=== PATIENT | male | born 1940 | race Caucasian/White ===

== ENCOUNTER 2020-06-05 13:41 | Outpatient (RCR) | payer MEDICARE, SELFPAY | END 2020-06-05 23:59 | LOC: IMMUN 13:41 | PROVIDERS: PCP Family Medicine; Visit Provider Family Medicine | DX: Z23 Encounter for immunization (principal) | CPT/HCPCS: 0011A ==

== ENCOUNTER → 2022-01-05 | Outpatient (CLI) | payer MEDICARE, SELFPAY ==
--- NOTE | 2022-01-05 09:00 | PET_ITS ---
EXAMINATION: FDG PET-CT INDICATIONS: An 81-year-old male with history of esophageal carcinoma presenting for apparent initial staging examination. COMPARISON EXAMINATION: None available INDEX LESION SIZE SUV INTERPRETATION Distal esophagus 47.9-mm 8.1 Fulfills quantitative criteria for viable neoplasm Gastric cardia, proximal gastric body 65.5-mm 11.3 Fulfills quantitative criteria for viable neoplasm Perigastric and left periaortic lymph nodes 10.2-mm (largest) 4.4 (max) Fulfills quantitative criteria for viable neoplasm Left lumbar paravertebral musculature 13.3-mm (largest) 9.0 (max) Fulfills quantitative criteria for viable neoplasm Bilateral hemithorax pulmonary parenchyma 1.5 (max) Quantitative criteria for viable neoplasm are not fulfilled TECHNIQUE: Following the intravenous administration of 13.59 mCi of F-18 deoxyglucose via the left antecubital fossa, multiplanar image acquisitions of the neck, chest, abdomen and pelvis to level of mid thigh, obtained at one hour post radiopharmaceutical administration contemporaneously interpreted with the current CT of the neck, chest, abdomen and pelvis, to level of mid thigh, dated 01/05/22 via coregistration reveals: BLOOD GLUCOSE LEVEL:?? 134 mg/dl?HEIGHT:?69 inches?WEIGHT: 168 lbs. FINDINGS: Head/Neck: There is no evidence of abnormal increased glucose metabolism in the pharyngeal mucosal space, parapharyngeal space, bilateral-lateral and anterior neck, hypopharynx and distribution of the laryngeal structures. The visualized portion of the cerebral cortical-subcortical structures demonstrate symmetric and preserved glucose metabolism. CHEST: There is increased FDG concentration identified in the distribution of the distal esophagus, gastroesophageal junction. The calculated maximal standard uptake value is 8.1. The maximal axial diameter of the metabolic, morphologic abnormality is 47.9-mm. Prominent uptake is defined in the descending thoracic aorta likely representing activated leukocytes associated with atherosclerotic plaque formation. Parenchymal changes defined in the bilateral hemithorax demonstrate a calculated maximal standard uptake value of 1.5. Quantitative criteria for viable neoplasm are not fulfilled. Pertinent chest CT findings are as follows. There is atherosclerotic calcification defined in the thoracic aorta without evidence of dilatation-aneurysm formation. Coronary arterial calcification is observed. Calcified and non-calcified mediastinal and bilateral axillary soft tissue is ametabolic. The calcified parenchymal density defined in the right upper anteromedial lung zone is ametabolic. Abdomen/Pelvis: An increase in radiopharmaceutical concentration is identified in the left upper abdomen in the region of the gastric cardia, proximal gastric body. The calculated maximal standard uptake value is 11.3. The maximal axial diameter of the metabolic, morphologic abnormality is 5.5 mm. Facilitated FDG uptake is manifest in the left mid abdomen in a periaortic lymph node in the left lateral periaortic chain and upper abdomen to the right of the midline, perigastric in location adjacent to the lesser curvature. The calculated maximal standard uptake value is 4.4. The maximal axial diameter of the metabolic, morphologic abnormality is 10.2-mm. Normal physiologic distribution of the radiopharmaceutical is apparent in the hepatic and splenic parenchyma, both renal units, bladder and visualized intestinal tract. Pertinent abdomen and pelvis CT findings are as follows. There is atherosclerotic calcification defined in the abdominal aorta without evidence of dilatation-aneurysm formation. Abdominal and pelvic arterial calcification is encountered. Calcification is defined in the bilateral seminal vesicles, the left base of the prostate gland involving the peripheral zone. Bilateral fat containing inguinal hernias are defined. Right and left inguinal soft tissue densities are non-glucose avid. Abdominal mesenteric and additional retroperitoneal soft tissue densities are non-glucose avid. Cyst formation is defined in the right kidney. Calcification is noted in the pancreatic body. Skeletal: Degenerative changes are noted in the cervical, thoracic and lumbar spine without evidence of increased radiopharmaceutical concentration. There are no well-defined sclerotic-lytic changes manifest on review of the appendicular-axial skeletal structures. A focal increase in FDG uptake is noted in the left paravertebral musculature of the lumbar spine at the level of the fourth lumbar vertebra. The calculated maximal standard uptake value is 9.0, with a maximal axial diameter of 13.3-mm. PET/PET/CT Tumor Base -Thigh Init IMPRESSION: 1. ABNORMAL EXAMINATION INDICATIVE OF MALIGNANT VIABLE NEOPLASM. 2. Enhanced radiopharmaceutical concentration defined in the distal esophagus fulfills quantitative criteria for viable neoplasm. 3. The increase in glucose metabolism noted in the gastric cardia and proximal gastric body fulfills quantitative criteria for malignant transformation. 4. Lymph nodes identified in the left perigastric region adjacent to the inferior curvature of the proximal gastric body and left lateral periaortic lymph nodes fulfill quantitative criteria for viable neoplasm. 5. The paravertebral increase in uptake noted at the level of the fourth lumbar vertebra fulfills quantitative criteria for viable neoplasm. Correlation with magnetic resonance imaging may be of benefit. 6. Enhanced tracer uptake defined in the bilateral lung washburn does not fulfill quantitative criteria for viable neoplasm. Electronic Signature Michael Carter D.O. Accurate Quantification of SUVs for this report are calculated using the exclusive [employer]. ([place]. Patent No. [id number]). Standardization and correction of the FDG SUV metric via [employer] technology allow for vendor non-specific objective quantitative examination comparison and optimization of the sensitivity and specificity of the FDG PET-CT examination. Electronically Signed: Michael Carter, at 23:17 EDT ,
== END | disposition home or self-care (01) ==
PROVIDERS: PCP Family Medicine; Referring Provider Internal Medicine Hematology & Oncology; Visit Provider Internal Medicine Hematology & Oncology
DX: C49.9 Malignant neoplasm of connective and soft tissue, unspecified (principal); C15.5 Malignant neoplasm of lower third of esophagus
CPT/HCPCS: 78815; A9552

== ENCOUNTER 2022-02-05 11:02 | Emergency (ER) | payer MEDICARE, SELFPAY ==
[2022-02-05 11:03] VITALS: BP 115/51; PULSE 95; RESP 18; TEMP 36.2; O2SAT 89; BMI 23.6
--- NOTE | 2022-02-05 11:53 | EX.ED.DYSGE1 ---
HPI History of Present Illness Chief Complaint: General Illness Narrative Narrative: Patient presents with his family because of PICC line problem. They state that he has a PICC line placed in his right arm/upper arm that is replaced every week. He has history of esophageal cancer, and has chronic anemia. He usually gets weekly iron infusions. His PICC was last changed 3 or 4 days ago, where they were able to draw blood yesterday from one of the ports. states that she went to flush the other port which she believed was the white port, and met resistance. He is supposed to receive a blood transfusion on Monday, and he states he presents because he wants to make sure that his PICC is operable. Patient states that is the sole reason that he is here is to make sure that the PICC is functional. PFSH PFSH Home Medications Pioglitazone Hcl/Metformin Hcl [Actoplus Met 15 Mg-500 Mg Tab] 1 tab PO BID 11/08/16 [History Last Taken Unknown] aspirin 81 mg tablet,delayed release 81 mg PO QHS 11/08/16 [History Last Taken 11/14/16 09:00] cholecalciferol (vitamin D3) 50 mcg (2,000 unit) capsule (Vitamin D3) 2,000 unit PO DAILY 11/08/16 [History Last Taken Unknown] fluticasone propionate 50 mcg/actuation nasal spray,suspension 1 spray QHS 11/08/16 [History Last Taken Unknown] ketotifen fumarate 0.025 % (0.035 %) eye drops (Zaditor) 1 drp BID 11/08/16 [History Last Taken Unknown] losartan 25 mg tablet 25 mg PO DAILY 11/08/16 [History Last Taken Unknown] metformin 500 mg tablet 500 mg PO DAILY 11/08/16 [History Last Taken Unknown] multivitamin (Multiple Vitamins tablet) 1 ea PO DAILY 11/08/16 [History Last Taken Unknown] simvastatin 40 mg tablet 40 mg PO DINNER 11/08/16 [History Last Taken Unknown] sotalol 80 mg tablet (Betapace AF) 40 mg PO BID 11/08/16 [History Last Taken 11/14/16 09:00] Allergy/AdvReac Type Severity Reaction Status Date / Time albuterol Allergy Other Verified 02/05/22 11:06 amoxicillin Allergy Other Verified 02/05/22 11:06 levofloxacin [From Levaquin] Allergy Other Verified 02/05/22 11:06 moxifloxacin [From Avelox] Allergy Other Verified 02/05/22 11:06 sulfamethoxazole Allergy Rash Verified 02/05/22 11:06 [From Bactrim] trimethoprim [From Bactrim] Allergy Rash Verified 02/05/22 11:06 Social History Smoking Status: Former smoker ROS ROS ED ROS Narrative Constitutional: No fever, no chills. Generalized weakness HEENT: No sore throat. No neck pain. No loss of vision. No rhinorrhea. Pain from esophageal carcinoma. Cardiovascular: No chest pain. No palpitations. No pedal edema. Respiratory: No cough, no shortness of breath. Abdominal: No abdominal pain. No nausea. No vomiting. Genitourinary: No dysuria. No hematuria. Musculoskeletal: No myalgias. No arthralgias. PICC line malfunction right upper arm. Neurologic: No headaches. No dizziness. No lightheadedness. Skin: No rash. No change in color. Psychiatric: No depression. No anxiety. EXAM Physical Exam Narrative Exam Narrative: Afebrile. Vital signs noted. HEENT: Normocephalic. Atraumatic. PERRL, EOMI. Neck soft and supple. No point tenderness or step off. Mild cachexia. Cardiovascular: Regular rate and rhythm. No murmurs, rubs, or gallops appreciated. Respiratory: No tachypnea. Lungs clear to auscultation bilaterally. Gastrointestinal: Abdomen soft, nontender, with normoactive bowel sounds. No rebound or guarding. Neurological: Awake. Alert. Nonfocal, nonlateralizing. Skin: No rash. Normal color. No pallor. Musculoskeletal: No pedal edema. Full range of motion extremities. PICC line right upper arm, no erythema. Const Vital Signs: 02/05/22 11:03 02/05/22 12:02 Temperature 97.1 F L Temperature Source Temporal Pulse Rate 95 Respiratory Rate 18 Respiratory Effort Normal Non-Labored Respiratory Pattern Normal Blood Pressure 115/51 L Blood Pressure Mean 72 Pulse Ox 89 Oxygen Delivery Method Room Air MDM MDM MDM Narrative Medical decision making narrative: RN will attempt drawback and flushing of both purple and white ports. One of the RNs was able to drawback and flush both ports. This will be rechecked prior to his discharge. At this point in time, as his PICC line is now operational, I feel he can be discharged safely home with follow-up and receive his blood transfusion on Monday. Disposition is discharged home in stable condition. Return instructions were reviewed. Discharge Plan Triage Chief Complaint: General Illness ED Provider: Ricardo Menchaca Dx/Rx/DC Orders Clinical Impression: PIC line (peripherally inserted central catheter) flush, Occluded PICC line, History of esophageal cancer Instructions: ED PICC Line Care Prescriptions: No Action multivitamin [Multiple Vitamins] 1 EACH tablet 1 ea PO DAILY metformin 500 MG tablet 500 mg PO DAILY Label Comments: DIABETES ketotifen fumarate [Zaditor] 5 ML Drops 1 drp Each Eye BID Label Comments: SINUS sotalol [Betapace AF] 80 MG tablet 40 mg PO BID Label Comments: HEART aspirin 81 MG tablet 81 mg PO QHS Label Comments: HEART HEALTH simvastatin 40 MG tablet 40 mg PO DINNER Label Comments: CHOLESTEROL losartan 25 MG tablet 25 mg PO DAILY Label Comments: BP fluticasone propionate 1 SPRAY Nasal.Sry 1 spray NASAL QHS cholecalciferol (vitamin D3) [Vitamin D3] 2,000 UNIT capsule 2,000 unit PO DAILY Label Comments: SUPPLEMENT Pioglitazone Hcl/Metformin Hcl [Actoplus Met 15 Mg-500 Mg Tab] 1 TAB tablet 1 tab PO BID Label Comments: DIABETES Primary Care Provider: Eran Moeller Referrals: NOT,DEFINED [Non-Staff] - Activity Restrictions/Additional Instructions: Follow-up with the infusion center on Monday as planned. Disposition Disposition: Home, Self Care
--- NOTE | 2022-02-05 12:57 | ED.RN ---
FLUSHED PICC WITH MORE SALINE TO MAKE SURE STILL WORKING. WORKING INTENDED.
== END 2022-02-05 12:58 | disposition home or self-care (01) ==
PROVIDERS: Emergency Provider Emergency Medicine; Visit Provider Emergency Medicine
DX: T82.594A Other mechanical complication of infusion catheter, initial encounter (principal); X58.XXXA Exposure to other specified factors, initial encounter; D64.9 Anemia, unspecified; Z79.82 Long term (current) use of aspirin; Z79.899 Other long term (current) drug therapy; Z85.01 Personal history of malignant neoplasm of esophagus; Z87.891 Personal history of nicotine dependence
CPT/HCPCS: 99282; A4216

== ENCOUNTER → 2022-02-07 | Outpatient (CLI) | payer MEDICARE, SELFPAY ==
[2022-02-07] VITALS (7 sets, daily range): BP systolic 90–104; BP diastolic 49–58; PULSE 79–113; RESP 16–20; TEMP 35.8–36.2; O2SAT 90–93; BMI 23.6
[2022-02-07] MEDS: 0.9% NaCl Peripheral Flush Adult/Peds IV ×3 (08:30→12:34)
== END | disposition home or self-care (01) ==
PROVIDERS: Visit Provider Internal Medicine Hematology & Oncology
DX: D50.0 Iron deficiency anemia secondary to blood loss (chronic) (principal)
CPT/HCPCS: 36430; 86850; 86900; 86901; J7040; P9016; A4216

== ENCOUNTER 2022-02-12 01:05 | Inpatient (IN) | payer MEDICARE, SELFPAY ==
[2022-02-12] VITALS (13 sets, daily range): BP systolic 100–125; BP diastolic 55–74; PULSE 87–110; RESP 16–36; TEMP 36.4–37; O2SAT 84–99; BMI 23.1; BMI 22.2
--- NOTE | 2022-02-12 01:25 | ED.VIS.DYS ---
HPI History of Present Illness Chief Complaint: Shortness of Breath Narrative Narrative: 82-year-old male with history of esophageal cancer who is undergone chemotherapy 10-[address] Cook. He last followed up with Dr. Billings and he is being treated currently for aspiration pneumonia which she has had several times. He is on Augmentin. He states he does not have a fever, chills. He feels generally weak but there is no new components to it. He has been having difficulty eating for months because of the esophageal cancer. He is supposed start chemotherapy next week. He saw Dr. Brambila on the because he supposed to be putting in a port for his chemotherapy. At that point Dr. Brambila stated that his lungs sounded clear and his heart sounded normal. Patient states that he has felt short of breath since yesterday afternoon. He denies chest pain. He denies fever. No nausea or vomiting. He does not usually wear oxygen. No history of PE or DVT. [facility] Medical History Asthma Chronic anemia Diabetes mellitus, type 2 Esophageal carcinoma HLD (hyperlipidemia) HTN (hypertension) Iron deficiency anemia PAF (paroxysmal atrial fibrillation) Home Medications Pioglitazone Hcl/Metformin Hcl [Actoplus Met 15 Mg-500 Mg Tab] 1 tab PO BID 11/08/16 [History Last Taken Unknown] aspirin 81 mg tablet,delayed release 81 mg PO QHS 11/08/16 [History Last Taken 11/14/16 09:00] cholecalciferol (vitamin D3) 50 mcg (2,000 unit) capsule (Vitamin D3) 2,000 unit PO DAILY 11/08/16 [History Last Taken Unknown] ketotifen fumarate 0.025 % (0.035 %) eye drops (Zaditor) 1 drp BID 11/08/16 [History Last Taken Unknown] losartan 25 mg tablet 25 mg PO DAILY 11/08/16 [History Last Taken Unknown] metformin 500 mg tablet 500 mg PO DAILY 11/08/16 [History Last Taken Unknown] simvastatin 40 mg tablet 40 mg PO DINNER 11/08/16 [History Last Taken Unknown] sotalol 80 mg tablet (Betapace AF) 40 mg PO BID 11/08/16 [History Last Taken 11/14/16 09:00] amoxicillin 875 mg-potassium clavulanate 125 mg tablet 1 tab PO BID 02/07/22 [History Last Taken Unknown] Allergy/AdvReac Type Severity Reaction Status Date / Time albuterol Allergy Other Verified 02/12/22 01:14 amoxicillin Allergy Other Verified 02/12/22 01:14 levofloxacin [From Levaquin] Allergy Other Verified 02/12/22 01:14 moxifloxacin [From Avelox] Allergy Other Verified 02/12/22 01:14 sulfamethoxazole Allergy Rash Verified 02/12/22 01:14 [From Bactrim] trimethoprim [From Bactrim] Allergy Rash Verified 02/12/22 01:14 Family History Father Hypertension Diabetes Heart disease CAD (coronary artery disease) Sister Hypertension Diabetes Mother Hypertension Surgical History (Updated 02/12/22 @ 03:[address] Kelly Phillips MD) H/O sinus surgery History of esophageal surgery Status post myringotomy with tube placement of both ears Social History household members: spouse Smoking Status: Former smoker alcohol intake: current alcohol intake frequency: a few times a month substance use type: does not use ROS ROS ED Constitutional Constitutional ED: Denies chills or fever(s) Eyes Eyes: Denies change in vision ENT ENT ED: Denies rhinorrhea Cardiovascular Cardiovascular: Denies chest pain or palpitations Respiratory/Chest Respiratory/Chest: Reports cough and dyspnea Gastrointestinal Gastrointestinal: Denies abdominal pain or constipation Genitourinary Genitourinary ED: Denies dysuria or hematuria Musculoskeletal Musculoskeletal: Denies arthralgias, back pain or myalgias Integumentary Denies abscess Neurologic Neurologic: Denies headache(s) EXAM Physical Exam Const Vital Signs: 02/12/22 01:06 02/12/22 01:09 02/12/22 01:09 Temperature 97.8 F 97.8 F Temperature Source Temporal Temporal Pulse Rate 110 H 110 H Respiratory Rate 21 H 21 H Respiratory Effort Short of Breath Respiratory Depth Normal Respiratory Pattern Normal Blood Pressure 119/73 119/73 Blood Pressure Mean 88 88 Pulse Ox 88 88 Oxygen Delivery Method Room Air Room Air Room Air Oxygen Flow Rate (L/min) 02/12/22 01:14 02/12/22 01:38 02/12/22 03:02 Temperature 97.6 F L Temperature Source Temporal Pulse Rate 108 H 95 Respiratory Rate 36 H 24 H Respiratory Effort Respiratory Depth Respiratory Pattern Blood Pressure 113/65 124/72 H Blood Pressure Mean 81 89 Pulse Ox 94 93 99 Oxygen Delivery Method Nasal Cannula Nasal Cannula Nasal Cannula Oxygen Flow Rate (L/min) 3 3 3 MDM MDM MDM Narrative Medical decision making narrative: 82-year-old male with history of esophageal cancer currently status postradiation therapy and waning chemotherapy after he gets his port placed by Dr. Brambila presenting with hypoxia as he is 88% on room air. He has been short of breath since yesterday. No fever, chills. He does admit to a cough and shortness of breath. He feels better with 3 L nasal cannula. His O2 sats have come up to 94%. Given his tachycardia and tachypnea as well as hypoxia septic work-up was pursued. Patient had blood work done on 02/09/2022. His CBC at that time showed a white blood cell count of 11.89 and today it is 8.1. His hemoglobin was 10.0 and today it is 10.6. His platelets were 387 and today they are 332. Sodium today 133 and it was 130. Creatinine 0.56 and this was 0.47. GFR today is 150. LFTs are unremarkable. Lactic acid today 1.2. Urinalysis is negative. Coagulation studies are normal. Chest x-ray my interpretation shows some left lower lobe infiltrate. The radiologist interpreted this is agrees. Because of his history of cancer and hypoxia I did obtain a CTA of the chest which is negative for PE or dissection but does show bilateral lower lobe infiltrates as well as right middle lobe and lingular infiltrates. Since patient is requiring 3 L of oxygen via nasal cannula he will need to be admitted. I spoke with the hospitalist who wanted to start Rocephin and Flagyl. These were started in the ED. All results were discussed with the patient and his . Impression: 1. Bilateral pneumonia 2. Hypoxic respiratory failure 3. Generalized weakness 4. History of esophageal cancer Lab Data Attestation: I reviewed the patient's lab results. Labs: Laboratory Results - last 24 hr 02/12/22 02/12/22 02/12/22 01:18 01:18 01:18 WBC 8.1 RBC 4.09 L Hgb 10.6 L Hct 34.4 L MCV 84.1 MCH 25.9 L MCHC 30.8 L RDW Std Deviation 66.4 H RDW Coeff of Rey 21.8 H Plt Count 332 MPV 8.7 Immature Gran % (Auto) 0.600 Neut % (Auto) 77.6 H Lymph % (Auto) 5.2 L [place] % (Auto) 15.5 H Eos % (Auto) 0.9 Baso % (Auto) 0.2 Absolute Neuts (auto) 6.3 Absolute Lymphs (auto) 0.42 L Nucleated RBC % 0 Differential Comment SCANNED Platelet Estimate ADEQUATE Anisocytosis 1+ Microcytosis 1+ PT 12.7 INR 1.0 APTT 27.4 Sodium 133 L Potassium 4.5 Chloride 97 L Carbon Dioxide 29.0 Anion Gap 7 BUN 13 Creatinine 0.56 L Estim Creat Clear Calc 56.95 Est GFR (MDRD) Af Amer 181 Est GFR (MDRD) Non-Af 150 BUN/Creatinine Ratio 23.4 H Glucose 201 H Lactic Acid Calcium 8.9 Total Bilirubin 0.30 AST 16 ALT 10 L Alkaline Phosphatase 80 Troponin I High Sens 8 Total Protein 5.7 L Albumin 2.3 L Globulin 3.4 Albumin/Globulin Ratio 0.7 L Urine Color Urine Clarity Urine pH Ur Specific [place] Urine Protein Urine Glucose (UA) Urine Ketones Urine Occult Blood Urine Nitrite Urine Bilirubin Urine Urobilinogen Ur Leukocyte Esterase Urine RBC Urine WBC Ur Squamous Epith Cells Urine Bacteria Urine Mucus 02/12/22 02/12/22 01:18 01:43 WBC RBC Hgb Hct MCV MCH MCHC RDW Std Deviation RDW Coeff of [place] Plt Count MPV Immature Gran % (Auto) Neut % (Auto) Lymph % (Auto) [place] % (Auto) Eos % (Auto) Baso % (Auto) Absolute Neuts (auto) Absolute Lymphs (auto) Nucleated RBC % Differential Comment Platelet Estimate Anisocytosis Microcytosis PT INR APTT Sodium Potassium Chloride Carbon Dioxide Anion Gap BUN Creatinine Estim Creat Clear Calc Est GFR (MDRD) Af Amer Est GFR (MDRD) Non-Af BUN/Creatinine Ratio Glucose Lactic Acid 1.2 Calcium Total Bilirubin AST ALT Alkaline Phosphatase Troponin I High Sens Total Protein Albumin Globulin Albumin/Globulin Ratio Urine Color Yellow Urine Clarity Clear Urine pH 6.5 Ur Specific [place] 1.015 Urine Protein 30 H Urine Glucose (UA) Normal Urine Ketones 5 H Urine Occult Blood Negative Urine Nitrite Negative Urine Bilirubin Negative Urine Urobilinogen Normal Ur Leukocyte Esterase 25 H Urine RBC 0 SEEN Urine WBC 0 SEEN Ur Squamous Epith Cells 0 SEEN Urine Bacteria 0 SEEN Urine Mucus 0 SEEN Radiography Diagnostic Testing: Clinical Impression(s) from Imaging Studies Chest X-Ray 02/12/22 01:50 IMPRESSION: Mild left basilar airspace disease. Findings may indicate atelectasis or pneumonia. Electronically Signed: Toño Lopez MD at 2:32 EDT , Chest CTA 02/12/22 02:30 IMPRESSION: 1. Patchy nodular airspace disease in the lower lobes, right middle lobe and lingula, as well as some fluid within the right lower lobe airways. Findings likely indicate pneumonia, possibly contributed to by aspiration. 2. No evidence of pulmonary embolism. 3. Large distal esophageal stent extending into the proximal stomach. Significant wall thickening of the esophagus surrounding the stent. This is consistent with the history of esophageal cancer. Electronically Signed: Toño Lopez MD at 2:59 EDT , Discharge Plan Triage Chief Complaint: Shortness of Breath ED Provider: Osiel Huggins Dx/Rx/DC Orders Prescriptions: No Action metformin 500 MG tablet 500 mg PO DAILY Label Comments: DIABETES ketotifen fumarate [Zaditor] 5 ML drops 1 drp Each Eye BID Label Comments: SINUS sotalol [Betapace AF] 80 MG tablet 40 mg PO BID Label Comments: HEART aspirin 81 MG tablet 81 mg PO QHS Label Comments: HEART HEALTH simvastatin 40 MG tablet 40 mg PO DINNER Label Comments: CHOLESTEROL losartan 25 MG tablet 25 mg PO DAILY Label Comments: BP cholecalciferol (vitamin D3) [Vitamin D3] 2,000 UNIT capsule 2,000 unit PO DAILY Label Comments: SUPPLEMENT Pioglitazone Hcl/Metformin Hcl [Actoplus Met 15 Mg-500 Mg Tab] 1 TAB tablet 1 tab PO BID Label Comments: DIABETES amoxicillin-pot clavulanate [Augmentin] 875-125 mg Tablet 1 tab PO BID Primary Care Provider: Eran Moeller Referrals: Eran Moeller DO [Primary Care Provider] -
--- NOTE | 2022-02-12 01:28 | EKG12_ITS ---
Test Reason : SHORTNESS OF BREATH Blood Pressure : / mmHG Vent. Rate : 091 BPM Atrial Rate : 091 BPM P-R Int : 152 ms QRS Dur : 070 ms QT Int : 406 ms P-R-T Axes : 050 -12 041 degrees QTc Int : 499 ms Sinus rhythm with PAC's and PVC's Prolonged QT Abnormal ECG Confirmed by RA GONSALVES, LUCIANA ([id number]), graphics editor MICAH VEGA ([id number]) on 02/14/2022 10:01:34 AM Referred By: STEF Confirmed By:LOWELL KNAPP MD
[2022-02-12 01:43] LABS: Absolute Lymphocyte Count 0.42 X10^3/uL (0.83-4.51); Absolute Neutrophil Count 6.3 X10^3/uL (2.0-7.7); Basophil# 0.02 X10^3/uL; Basophil% 0.2 % (0-1); Differential Indicated SCAN CRITERIA MET; Eosinophil# 0.07 X10^3/uL; Eosinophils% 0.9 % (0-5); Hematocrit 34.4 % (40-54); Hemoglobin 10.6 g/dL (13.0-16.5); Lymphocyte # 0.42 X10^3/ul (0.83-4.51); Lymphocyte % 5.2 % (19-41); Mean Corp Hgb Conc 30.8 g/dL (32-36); Mean Corpuscular Hgb 25.9 pg (27.0-32.0); Mean Corpuscular Volume 84.1 fL (80-94); Mean Platelet Vol. 8.7 fl (6.2-12.0); Monocyte# 1.25 X10^3/uL; Monocyte% 15.5 % (0-10); NRBC Flagged by Analyzer 0 % (0-5); Neutrophil # 6.26 X10^3/uL (2.7-7.7); Neutrophil % 77.6 % (47-70); POSITIVE COUNT YES; POSITIVE DIFFERENTIAL YES; POSITIVE MORPHOLOGY YES; Platelet Count 332 K/mm3 (150-450); RBC Distribution Width CV 21.8 % (11.6-14.6); RBC Distribution Width SD 66.4 fl (35.1-43.9); Red Blood Count 4.09 M/mm3 (4.6-6.2); White Blood Count 8.1 K/mm3 (4.4-11.0)
[2022-02-12 01:50] LABS: Prothrombin Time (Protime)PT. 12.7 SECONDS (11.7-14.9)
--- NOTE | 2022-02-12 01:50 | RAD_ITS ---
EXAM: XR CHEST, 1 VIEW CLINICAL INDICATION: cough TECHNIQUE: Frontal view of the chest. This report was created using [employer] report generation technology. COMPARISON: 02/06/2015 FINDINGS: LUNGS AND PLEURAL SPACES: Mild left basilar airspace disease. No pneumothorax. No effusion. HEART: Unremarkable. Cardiac silhouette not enlarged. MEDIASTINUM: Central airways and mediastinal contour are unremarkable. BONES/JOINTS: Unremarkable. SOFT TISSUES: Unremarkable. RAD/Chest 1 View (Portable) IMPRESSION: Mild left basilar airspace disease. Findings may indicate atelectasis or pneumonia. Electronically Signed: Toño Lopez MD at 2:32 EDT ,
[2022-02-12 01:51] LABS: Partial Thromboplast Time 27.4 Seconds (24.1-36.2)
[2022-02-12 01:56] LABS: Bacteria 0 SEEN /hpf (None Seen); Mucous, Urine 0 SEEN /hpf (<or=2+); Red Blood Cells-Urine 0 SEEN /hpf (0-5); Squamous Epithelial Cells - UA 0 SEEN /hpf (0-5); White Blood Cells 0 SEEN /hpf (0-5)
[2022-02-12 01:57] LABS: Color, Urine Yellow (Yellow); Glucose, Dipstick Normal (Normal); Ketone-Dipstick 5 mg/dl (Negative); Leukocyte Esterase-Dipstick 25 /ul (Negative); Nitrite-Dipstick Negative (Negative); Occult Blood-Urine Negative /ul (Negative); Protein-Dipstick 30 mg/dl (Negative); Specific Gravity, Urine 1.015 (1.002-1.030); Urine Bilirubin Dipstick Negative (Negative); Urine Clarity Clear (Clear); Urine Urobilinogen Normal (Normal); Urine pH 6.5 (5.0 - 8.0)
[2022-02-12 02:01] LABS: ALB/GLOB Ratio 0.7 RATIO (0.9-2.4); AST(SGOT) 16 U/L (15-37); Alanine Aminotransfer ALT/SGPT 10 U/L (16-61); Albumin, Serum 2.3 g/dL (3.2-5.0); Alkaline Phosphatase 80 U/L (45-117); Anion Gap 7 (5-15); BUN 13 mg/dL (7-18); BUN/Creat Ratio 23.4 RATIO (10-20); Calcium,Total 8.9 mg/dL (8.5-10.1); Chloride 97 mmol/L (98-107); Creatinine, Serum 0.56 mg/dL (0.70-1.30); EST Glomerular Filtration Rate 150 mL/min (>60); Est Glom Filt Rate - Afr Amer 181 mL/min (>60); Estimated Creatinine Clearance 56.95 ml/min; Globulin 3.4 g/dL (2.2-4.2); Glucose 201 mg/dL (74-106); Potassium 4.5 mmol/L (3.5-5.1); Protein, Total 5.7 g/dL (6.4-8.2); Sodium Level 133 mmol/L (136-145); Troponin-I HS 8 pg/mL (3.0-78.0)
[2022-02-12 02:02] LABS: Lactic Acid 1.2 mmol/L (0.4-1.9)
[2022-02-12 02:05] LABS: Anisocytosis 1+; Differential Comment SCANNED; Microcytosis 1+; Platelet Estimate ADEQUATE (ADEQ)
--- NOTE | 2022-02-12 02:30 | CT_ITS ---
EXAM: CT ANGIOGRAPHY CHEST WITHOUT AND WITH INTRAVENOUS CONTRAST CLINICAL INDICATION: Hypoxic respiratory failure TECHNIQUE: Helically acquired angiography images were obtained of the chest without and with intravenous contrast. This CT exam was performed using one or more of the following dose reduction techniques: automated exposure control, adjustment of the mA and/or kV according to patient size, and/or use of iterative reconstruction technique. This report was created using [employer] report generation technology. MIP reconstructed images were created and reviewed. CONTRAST: IV 100mL Isovue-370 COMPARISON: None. FINDINGS: PULMONARY ARTERIES: Unremarkable. Normal in caliber. No evidence of pulmonary embolism. AORTA: Unremarkable. Normal in caliber. No evidence of dissection. GREAT VESSELS OF AORTIC ARCH: Unremarkable. Normal in caliber. No evidence of dissection. LUNGS AND PLEURAL SPACES: Patchy nodular airspace disease in the lower lobes, right middle lobe and lingula, as well as some fluid within the right lower lobe airways. No mass. HEART: Coronary artery calcifications. Mild cardiomegaly. No pericardial effusion. No signs of right heart strain, ratio of right ventricle to left ventricle measures less than 1. MEDIASTINUM: Large distal esophageal stent extending into the proximal stomach. Significant wall thickening of the esophagus surrounding the stent. This is consistent with the history of esophageal cancer. No mediastinal or hilar adenopathy. No hiatal hernia. THYROID: Unremarkable. No thyroid lesions. BONES/JOINTS: Degenerative changes of the spine. No suspicious lytic or blastic abnormality. CT/CTA Chest W/WO Contrast IMPRESSION: 1. Patchy nodular airspace disease in the lower lobes, right middle lobe and lingula, as well as some fluid within the right lower lobe airways. Findings likely indicate pneumonia, possibly contributed to by aspiration. 2. No evidence of pulmonary embolism. 3. Large distal esophageal stent extending into the proximal stomach. Significant wall thickening of the esophagus surrounding the stent. This is consistent with the history of esophageal cancer. Electronically Signed: Toño Lopez MD at 2:59 EDT ,
--- NOTE | 2022-02-12 03:03 | HP.PCM.HOS_ITS ---
HPI - General General Date of Admission: 02/12/22 Date of Service: 02/12/22 Chief Complaint: Fatigue, malaise, cough, dyspnea, hypoxia, recent aspiration PNA treatment start. HPI Narrative The patient is an 82 y/o M w/ PMHx: PAF, HTN, HLD, Diabetes mellitus type II, PAF, Chronic anemia/Fe deficiency anemia with routine IV Fe supplementation, recent diagnosis of esophageal cancer with ongoing chemotherapy following w/ Dr. Cook with recent 02/10/[address] Brambila for port placement for planned upcoming new chemotherapy, recent diagnosis Aspiration PNA on antibiotics (augmentin per Dr. Billings/Dr. Cook starting 02/04/22) outpatient with worsening dyspnea, more pronounced since afternoon day prior to ED presentation prompting eventual ED evaluation. Patient does report that over the last couple days he has been sleeping in a recliner secondary to worsened dyspnea with attempt to lay in bed but this seemed to improve even on his recent oral abx therapy. He denies any associated fever or chills but notes significant wea kness. He has had difficulty eating for several months because of his esophageal cancer. Work-up in the ED included T97.8, heart rate 110, BP 119/73, respiratory rate 21, initially 88% on room air with improvement to 94% on 3 L nasal cannula, CBC w/ WBC 8.1, Hgb 10.6, MCV 84.1, Plts 332 with lymphopenia, coags unremarkable, CMP Na 133, Chl 97, BUN/Cr 13/0.56, glucose 201, lactic acid 1.2, troponin 8, Bld Cx x 2 pending per ED, rapid COVID antigen negative, UA not marked appearing, UCx pending per ED, CXR with mild left basilar airspace disease, CTPA with patchy nodular airspace disease in the lower lobes, right middle lobe and lingula as well as some fluid within the right lower lobe airway s indicative of pneumonia, contributed to by likely aspiration with no evidence of pulmonary embolism, large distal esophageal stent extending the proximal stomach with significant wall thickening of the esophagus surrounding the stent consistent with history of esophageal cancer. [facility] Medical History (Updated 02/12/22 @ 03:[address] Kelly Phillips MD) Asthma Chronic anemia Diabetes mellitus, type 2 Esophageal carcinoma HLD (hyperlipidemia) HTN (hypertension) Iron deficiency anemia PAF (paroxysmal atrial fibrillation) Home Medications Pioglitazone Hcl/Metformin Hcl [Actoplus Met 15 Mg-500 Mg Tab] 1 tab PO BID 11/08/16 [History Last Taken Unknown] aspirin 81 mg tablet,delayed release 81 mg PO QHS 11/08/16 [History Last Taken 11/14/16 09:00] cholecalciferol (vitamin D3) 50 mcg (2,000 unit) capsule (Vitamin D3) 2,000 unit PO DAILY 11/08/16 [History Last Taken Unknown] ketotifen fumarate 0.025 % (0.035 %) eye drops (Zaditor) 1 drp BID 11/08/16 [History Last Taken Unknown] losartan 25 mg tablet 25 mg PO DAILY 11/08/16 [History Last Taken Unknown] metformin 500 mg tablet 500 mg PO DAILY 11/08/16 [History Last Taken Unknown] simvastatin 40 mg tablet 40 mg PO DINNER 11/08/16 [History Last Taken Unknown] sotalol 80 mg tablet (Betapace AF) 40 mg PO BID 11/08/16 [History Last Taken 0 11/14/16 09:00] amoxicillin 875 mg-potassium clavulanate 125 mg tablet 1 tab PO BID 02/07/22 [History Last Taken Unknown] Allergy/AdvReac Type Severity Reaction Status Date / Time albuterol Allergy Other Verified 02/12/22 01:14 amoxicillin Allergy Other Verified 02/12/22 01:14 levofloxacin [From Levaquin] Allergy Other Verified 02/12/22 01:14 moxifloxacin [From Avelox] Allergy Other Verified 02/12/22 01:14 sulfamethoxazole Allergy Rash Verified 02/12/22 01:14 [From Bactrim] trimethoprim [From Bactrim] Allergy Rash Verified 02/12/22 01:14 Family History Father Hypertension Diabetes Heart disease CAD (coronary artery disease) Sister Hypertension Diabetes Mother Hypertension Surgical History (Updated 02/12/22 @ 03:[address] Kelly Phillips MD) H/O sinus surgery History of esophageal surgery Status post myringotomy with tube placement of both ears Social History household members: spouse Smoking Status: Former smoker alcohol intake: current alcohol intake frequency: a few times a month substance use type: does not use ROS ROS Narrative Admission Review of Systems: CONSTITUTIONAL: No weight loss, fever, chills, + weakness or fatigue. HEENT: Eyes: No visual loss, blurred vision, double vision or yellow sclerae. Ears, Nose, Throat: No hearing loss, sneezing, congestion, runny nose or sore throat. SKIN: No rash or itching, lesions, wounds. CARDIOVASCULAR: + Edema, orthopnea. No chest pain, chest pressure or chest dis comfort, palpitations, syncopal events. RESPIRATORY: + shortness of breath, cough with increased sputum, wheezing, No hemoptysis. GASTROINTESTINAL: No anorexia, nausea, vomiting or diarrhea, abdominal pain, melena, BRBPR. GENITOURINARY: No dysuria, frequency, urgency or retention. NEUROLOGICAL: No headache, dizziness, syncope, paralysis, ataxia, numbness or tingling in the extremities, focal weakness, change in bowel or bladder control, seizure. MUSCULOSKELETAL: + muscle, back pain, joint pain or stiffness. HEMATOLOGIC: + anemia, bleeding or bruising. LYMPHATICS: No enlarged nodes. No history of splenectomy. PSYCHIATRIC: No history of depression or anxiety. ENDOCRINOLOGIC: No reports of sweating, cold or heat intolerance. No polyuria or polydipsia. ALLERGIES: No history of asthma, hives, eczema or rhinitis. Vital Signs Vital Signs Vital Signs: 02/12/22 01:06 02/12/22 01:09 02/12/22 01:09 Temperature 97.8 F 97.8 F Temperature Source Temporal Temporal Pulse Rate 110 H 110 H Respiratory Rate 21 H 21 H Respiratory Effort Short of Breath Respiratory Depth Normal Respiratory Pattern Normal Blood Pressure 119/73 119/73 Blood Pressure Mean 88 88 Pulse Ox 88 88 Oxygen Delivery Method Room Air Room Air Room Air Oxygen Flow Rate (L/min) 02/12/22 01:14 02/12/22 01:38 Temperature Temperature Source Pulse Rate 108 H Respiratory Rate 36 H Respiratory Effort Respiratory Depth Respiratory Pattern Blood Pressure 113/65 Blood Pressure Mean 81 Pulse Ox 94 93 Oxygen Delivery Method Nasal Cannula Nasal Cannula Oxygen Flow Rate (L/min) 3 3 Weight Weight: 156 lb 11.979 oz Body Mass Index (BMI) 23.1 Physical Exam Narrative Physical Examination: General: Awake, alert, oriented x 3 and cooperative, seated upright in the ED bed, fatigued, ill appearing. Skin: Normal color, normal turgor, no icterus, no cyanosis except for various staged ecchymoses. HEENT: AT/NC, EOMI, PERRLA, mildly dry MM, no carotid bruits or JVD noted. Lungs: Notably diminished, > bases, poor air movement, poor effort, no rales, ronchi or wheezing. Heart: Mildly tachycardic with regular rhythm; no gallop, rub audible. Abdomen: Soft, NTTP, ND, distant normal BS, no HSM. Extremities: No cyanosis, no clubbing, pedal to distal smith 1+ edema. Neurological: Patient awake, alert, oriented as noted, cognitive function intact; pupils equally reactive to light and accommodation, cranial nerves II- XII grossly normal, moving all 4 extremities, no focal deficits, strength moderately to severely globally decreased secondary to acute presentation. Psychiatric: Affect appears fatigued, ill appearing, no acute evidence of depressive or anxiety feelings. Results Lab / Micro Data Result Diagrams: 02/12/22 01:18 02/12/22 01:18 Labs: Laboratory Results - last 24 hr 02/12/22:18: WBC 8.1, RBC 4.09 L, Hgb 10.6 L, Hct 34.4 L, MCV 84.1, MCH 25.9 L, MCHC 30.8 L, RDW Std Deviation 66.4 H, RDW Coeff of Rey 21.8 H, Plt Count 332, MPV 8.7, Immature Gran % (Auto) 0.600, Neut % (Auto) 77.6 H, Lymph % (Auto) 5.2 L, Summers % (Auto) 15.5 H, Eos % (Auto) 0.9, Baso % (Auto) 0.2, Absolute Neuts (auto) 6.3, Absolute Lymphs (auto) 0.42 L, Nucleated RBC % 0, Differential Comment SCANNED, Platelet Estimate ADEQUATE, Anisocytosis 1+, Microcytosis 1+ 02/12/22:18: PT 12.7, INR 1.0, APTT 27.4 02/12/22:18: Sodium 133 L, Potassium 4.5, Chloride 97 L, Carbon Dioxide 29.0, Anion Gap 7, BUN 13, Creatinine 0.56 L, Estim Creat Clear Calc 56.95, Est GFR (MDRD) Af Amer 181, Est GFR (MDRD) Non-Af 150, BUN/Creatinine Ratio 23.4 H, Glucose 201 H, Calcium 8.9, Total Bilirubin 0.30, AST 16, ALT 10 L, Alkaline Phosphatase 80, Troponin I High Sens 8, Total Protein 5.7 L, Albumin 2.3 L, Globulin 3.4, Albumin/Globulin Ratio 0.7 L 02/12/22 01:18: Lactic Acid 1.2 02/12/22 01:43: Urine Color Yellow, Urine Clarity Clear, Urine pH 6.5, Ur Specific [place] 1.015, Urine Protein 30 H, Urine Glucose (UA) Normal, Urine Ketones 5 H, Urine Occult Blood Negative, Urine Nitrite Negative, Urine Bilirubin Negative, Urine Urobilinogen Normal, Ur Leukocyte Esterase 25 H, Urine RBC 0 SEEN, Urine WBC 0 SEEN, Ur Squamous Epith Cells 0 SEEN, Urine Bacteria 0 SEEN, Urine Mucus 0 SEEN Micro: Microbiology 02/12/22 01:38 Nasal Secretion SARS-CoV-2 Antigen (Rapid) - Final Radiology Impression Chest X-Ray 02/12/22 01:50 IMPRESSION: Mild left basilar airspace disease. Findings may indicate atelectasis or pneumonia. Electronically Signed: Toño Lopez MD at 2:32 EDT , Chest CTA 02/12/22 02:30 IMPRESSION: 1. Patchy nodular airspace disease in the lower lobes, right middle lobe and lingula, as well as some fluid within the right lower lobe airways. Findings likely indicate pneumonia, possibly contributed to by aspiration. 2. No evidence of pulmonary embolism. 3. Large distal esophageal stent extending into the proximal stomach. Significant wall thickening of the esophagus surrounding the stent. This is consistent with the history of esophageal cancer. Electronically Signed: Toño Lopez MD at 2:59 EDT , Assessment & Plan Assessment/Plan (1) Aspiration pneumonia: PLAN: Plan The patient is an 82 y/o M w/ PMHx: PAF, HTN, HLD, Diabetes mellitus type II, PAF, Chronic anemia/Fe deficiency anemia with routine IV Fe supplementation, recent diagnosis of esophageal cancer with ongoing chemotherapy following w/ Dr. Cook with recent 02/10/[address] Brambila for port placement for planned upcoming new chemotherapy, recent diagnosis Aspiration PNA on antibiotics outpatient with worsening dyspnea, more pronounced since afternoon day prior to ED presentation prompting eventual ED evaluation. #1. Aspiration pneumonia, recently diagnosed, worsening despite outpatient a ntibiotic therapies with associated hypoxia: Will admit to medical surgical floor, maintain on oxygen with wean as tolerated to oxygen supplementation, given tachycardia upon presentation will place on ATC budesonide therapy, maintained on IV Rocephin and Flagyl given allergy history, HOB, IS parameters w/ pending sputum cultures and urine antigens to be cautious. Speech therapy consulted and will maintain n.p.o. status except sips water with medications pending their evaluation given concern for aspiration. PT/OT/case management consultation for discharge planning. PPI while NPO. #2. Esophageal cancer: Following with Dr. Cook, recent evaluation 02/10/[address] Brambila for port placement, history of prior chemotherapy but plan to upcoming transition to new agent once port is placed, magnesium and phosphorus levels requested. Speech therapy consulted, n.p.o. status except medications pending evaluation #3. Chronic anemia/iron deficiency anemia: 02/09/2022 CBC with WBC 11.89, hemoglobin 10, platelet 387 with left shift, CMP with sodium 130, potassium 4.6, chloride 95, BUN/creat 12/0.47, hepatic profile not marked appearing. Admission CBC with hemoglobin 10.6, as noted prior baseline 02/10/2020 to 10, will continue to trend. #4. Chronic asthma: As noted above will place on ATC budesonide therapy, encourage head of bed and I-S. #5. PAF: We will continue patient home regimen aspirin and sotalol. #6. Hypertension: Continue home regimen including sotalol, losartan, PRN hydralazine. #7. Hyperlipidemia: We will continue patient on statin therapy. #8. Diabetes mellitus type II: Hold oral home regimen, will maintain n.p.o. pending speech therapy evaluation, accu checks w/ ISS. #9. DVT prophylaxis: SCDs, Lovenox. #10. CODE status: Patient HCPOA and living will are not in place. Discussed CODE status at length including difference between FULL code, DNR-CCA and DNR-CC status. Following discussions about the differences in these status, requested Full Code status. Advanced Care Planning Face to Face Time: 16 minutes. Charges/Coding Visit Charges Inpatient E&M: 64177 Init Hosp L3 Procedures Hospitalists Procedures: 91041 Advncd Care Plan 30 Min
[2022-02-12] MEDS: Ceftriaxone 1 GM/50 ML BAG IV ×2 (03:35→22:23)
[2022-02-12 03:36] LABS: Magnesium 1.6 mg/dL (1.6-2.6); Phosphorus 2.2 mg/dL (2.5-4.9)
[2022-02-12] MEDS: 0.9% Normal Saline 1,000 ML 100 ML IV ×2 (04:41→16:33)
[2022-02-12] MEDS: metroNIDAZOLE 500 MG/100 ML BAG 100 MG IV ×3 (04:48→23:07)
[2022-02-12] MEDS: Insulin Lispro 100 UNIT/ML INSULN.PEN SC ×2 (06:30→17:22)
[2022-02-12 06:47] LABS: Absolute Lymphocyte Count 0.31 X10^3/uL (0.83-4.51); Absolute Neutrophil Count 6.2 X10^3/uL (2.0-7.7); Basophil# 0.01 X10^3/uL; Basophil% 0.1 % (0-1); Eosinophil# 0.05 X10^3/uL; Eosinophils% 0.6 % (0-5); Hematocrit 33.3 % (40-54); Hemoglobin 10.2 g/dL (13.0-16.5); Lymphocyte # 0.31 X10^3/ul (0.83-4.51); Mean Corp Hgb Conc 30.6 g/dL (32-36); Mean Corpuscular Hgb 26.2 pg (27.0-32.0); Mean Corpuscular Volume 85.4 fL (80-94); Mean Platelet Vol. 8.9 fl (6.2-12.0); Monocyte# 1.14 X10^3/uL; Monocyte% 14.7 % (0-10); NRBC Flagged by Analyzer 0 % (0-5); Neutrophil # 6.19 X10^3/uL (2.7-7.7); Neutrophil % 80.1 % (47-70); POSITIVE DIFFERENTIAL YES; POSITIVE MORPHOLOGY YES; Platelet Count 302 K/mm3 (150-450); RBC Distribution Width CV 21.7 % (11.6-14.6); RBC Distribution Width SD 67.4 fl (35.1-43.9); White Blood Count 7.7 K/mm3 (4.4-11.0)
[2022-02-12 06:54] LABS: Differential Indicated SCAN CRITERIA MET
[2022-02-12 06:55] LABS: Bedside Glucose 179 mg/dL (74-106)
[2022-02-12 06:55] LABS: Bedside Glucose 179 mg/dL (74-106)
[2022-02-12 07:17] LABS: ALB/GLOB Ratio 0.7 RATIO (0.9-2.4); AST(SGOT) 16 U/L (15-37); Alanine Aminotransfer ALT/SGPT 11 U/L (16-61); Albumin, Serum 2.1 g/dL (3.2-5.0); Alkaline Phosphatase 70 U/L (45-117); Anion Gap 6 (5-15); BUN 12 mg/dL (7-18); BUN/Creat Ratio 22.9 RATIO (10-20); Calcium,Total 8.6 mg/dL (8.5-10.1); Chloride 97 mmol/L (98-107); Creatinine, Serum 0.52 mg/dL (0.70-1.30); EST Glomerular Filtration Rate 161 mL/min (>60); Est Glom Filt Rate - Afr Amer 194 mL/min (>60); Globulin 3.1 g/dL (2.2-4.2); Glucose 190 mg/dL (74-106); Potassium 4.3 mmol/L (3.5-5.1); Protein, Total 5.2 g/dL (6.4-8.2); Sodium Level 134 mmol/L (136-145)
[2022-02-12 07:20] LABS: Anisocytosis 1+; Differential Comment SCANNED; Microcytosis 1+
[2022-02-12] MEDS: Budesonide Respules 0.5 MG/2 ML AMPUL.NEB. INHALATION ×2 (07:27→19:00)
[2022-02-12] MEDS: Losartan Potassium 25 MG Tablet PO (09:57)
[2022-02-12] MEDS: Sotalol Hydrochloride 80 MG Tablet 40 MG PO ×2 (09:58→21:50)
[2022-02-12] MEDS: Enoxaparin 40 MG/0.4 ML Syringe SC (10:00)
--- NOTE | 2022-02-12 10:30 | CASEMGMT ---
FABIAN LLOYD Face to Face with patient for initial transition planning/care coordination assessment. AFBIAN LLOYD introduced self and role at [facility]. Patient lying in bed, alert and oriented, at bedside. Patient willing to participate in assessment and is able to answer all questions appropriately. Care providers, pharmacy, and demographics verified. Patient wishes to discharge home, denies need for home health at this time. Patient states he has no further needs or concerns at this time. CM to follow for discharge planning needs that may arise. PCP: Sajan Specialists: Jose Antonio, oncologist; Jose director of design Preferred Pharmacy: [facility] Insurance: [employer] Prescription Benefit: yes Living Will/HPOA: none LNOK: Living Arrangements: Patient lives with in a single story home with 3 steps and railing to enter. Patient states he is independent at home. Transportation: self, DME/HHC: Patient states he has raised toilet, grab bars, and walker at home. No previous HHC or SNF. FABIAN LLOYD provided patient with list of DME agencies that are in-network with his insurance and geographical area. Patient states first choice for DME is [employer]. FABIAN LLOYD placed Green Sheet on chart should patient qualify for home oxygen. Disposition Plan: Patient to discharge home with family support and follow-up plans in place. Will monitor for home oxygen. Janice GOLDSMITH, RN, CM
[2022-02-12] MEDS: Acetaminophen 325 MG Tablet 650 MG PO ×2 (12:10→22:00)
[2022-02-12 12:26] LABS: Bedside Glucose 167 mg/dL (74-106)
[2022-02-12 14:12] LABS: M R Staph aureus DNA By PCR Negative (Negative); Probe Check PASS; Specimen Processing Control PASS
[2022-02-12 17:45] LABS: Bedside Glucose 247 mg/dL (74-106)
[2022-02-12] MEDS: Atorvastatin Calcium 20 MG Tablet PO (21:50)
[2022-02-12] MEDS: Aspirin E.C. 81 MG Tablet PO (21:50)
[2022-02-12] MEDS: guaiFENesin 10 ML UDC (200MG/10ML) 20 ML PO (23:08)
[2022-02-12 23:36] LABS: Bedside Glucose 190 mg/dL (74-106)
[2022-02-13] VITALS (12 sets, daily range): BP systolic 95–112; BP diastolic 58–66; PULSE 88–98; RESP 16–24; TEMP 36.6–37.1; O2SAT 89–98
[2022-02-13] MEDS: 0.9% Normal Saline 1,000 ML 100 ML IV ×2 (03:19→13:47)
[2022-02-13] MEDS: metroNIDAZOLE 500 MG/100 ML BAG 100 MG IV ×3 (06:15→22:33)
[2022-02-13 06:40] LABS: Bedside Glucose 172 mg/dL (74-106)
[2022-02-13] MEDS: Budesonide Respules 0.5 MG/2 ML AMPUL.NEB. INHALATION ×2 (07:26→19:40)
[2022-02-13] MEDS: Acetaminophen 325 MG Tablet 650 MG PO ×2 (09:29→20:46)
[2022-02-13] MEDS: Enoxaparin 40 MG/0.4 ML Syringe SC (09:30)
[2022-02-13] MEDS: Sotalol Hydrochloride 80 MG Tablet 40 MG PO ×2 (09:30→21:43)
[2022-02-13] MEDS: guaiFENesin 10 ML UDC (200MG/10ML) 20 ML PO (11:05)
[2022-02-13] MEDS: Insulin Lispro 100 UNIT/ML INSULN.PEN SC (11:47)
[2022-02-13 12:10] LABS: Bedside Glucose 195 mg/dL (74-106)
--- NOTE | 2022-02-13 15:30 | PN.HOSP_ITS ---
Subjective Subjective Follow-up on hypoxia/aspiration pneumonia/esophageal CA status post stent: Patient was seen and examined. He feels much improved. He is on a textured diet by speech therapy. Denies any fever or chills. Objective Data Objective Data Vital Signs: Vital Signs Temp Pulse Resp BP Pulse Ox O2 Del Method O2 Flow Rate 97.8 F 89 17 102/58 L 94 Nasal Cannula 2 02/13/22 09:25 02/13/22 09:25 02/13/22 09:25 02/13/22 09:25 02/13/22 09:25 02/13/22 09:25 02/13/22 13:23 Oxygen Flow Rate (L/min) 2 Oxygen Delivery Method Nasal Cannula Weight: 68.8 kg Body Mass Index (BMI) 22.2 Intake & Output: Intake and Output for Last 24 Hours 02/11/22 02/12/22 02/13/22 23:59 23:59 23:59 Intake Total 2570.00 / 2570.00 2535.00 / 2535.00 Output Total 450 / 450 275 / 275 Balance 2120.00 / 2120.00 2260.00 / 2260.00 Medical Nutrition Assessment Dietitian: Malnutrition Criteria Met Start: 02/12/22 11:17 Freq: Status: Active Protocol: Document 02/12/22 11:18 AG (Rec: 02/12/22 11:18 [id number]) Nutrition Malnutrition Evidence of Malnutrition Exists Yes Malnutrition (severe): Chronic Evidenced By Suboptimal Energy Intake ( Severe),Weight Loss (Severe), Physical Changes (Moderate) Clinical Problem Chronic Disease or Condition Related Malnutrition Etiology severe, chronic malnutrition r /t inadequate energy intake w/ increased energy needs d/t cancer Signs/Symptoms as evidenced by unintentional 44.2#/23% wt loss < 1 year; estimated PO intake meeting < 75% of estimated energy needs >3 months; Moderate muscle wasting/fat loss evident per physical exam. Status Active Problem Recommendation Dietitian Recommendations/Changes regular diet-texture/ consistency per [employer]; Ensure Plus High Protein 240mL TID w/ meals; will fortify foods when able. Lab / Micro Data Result Diagrams: 02/12/22 05:50 02/12/22 05:50 Labs: Laboratory Results - last 24 hr 02/12/22 17:20: POC Glucose 247 H 02/12/22 23:13: POC Glucose 190 H 02/13/22 06:18: POC Glucose 172 H 02/13/22 11:45: POC Glucose 195 H Micro: Microbiology 02/12/22 17:20 Sputum, Expectorated/Coughed Gram Stain - Final 02/12/22 17:20 Sputum, Expectorated/Coughed Respiratory Culture - Prelimi nary Appears to be normal respiratory phil. Further studies to follow. 02/12/22 01:43 Urine, Clean Catch Urine Culture - Preliminary Culture exhibits no growth. 02/12/22 03:20 Mucosa - Nose Respiratory Panel (PCR) - Final Rhinovirus 02/12/22 01:43 Urine, Random Legionella Antigen - Final 02/12/22 01:43 Urine, Random Streptococcus pneumoniae Antigen (M - Final 02/12/22 01:38 Nasal Secretion SARS-CoV-2 Antigen (Rapid) - Final Physical Exam Narrative Physical exam: General: Alert, Oriented x3, Cooperative, on 2 L of oxygen HEENT: Atraumatic Oral: Moist Mucosa Neck: Supple Lungs: Diminished to auscultation, scattered wheezes Cardiovascular: HS I+II, regular, no murmurs Abdomen: Bowel Sounds Present, Soft, Non Tender Extremities: No edema Skin: No rashes, No breakdown Neurological: Grossly intact Psych/Mental Status: Appropriate Assessment & Plan Assessment/Plan (1) Aspiration pneumonia: PLAN: Plan 1. Acute hypoxia secondary to aspiration pneumonia Patient is currently on 2 L of oxygen Continue to wean off for SPO2 more than 92- 94% 2. Aspiration pneumonia, failed outpatient therapy, Patient was recently on Augmentin Continue on IV ceftriaxone and Flagyl Continue to encourage use of incentive spirometer 3. Dysphagia, on texture diet, speech therapy following 4. Esophageal CA status post stents, follows with Dr. Cook in the outpatient Patient has a medport placement coming up 5. Anemia, iron deficiency anemia of chronic disease, stable 6. Paroxysmal atrial fibrillation, continue sotalol and aspirin 7. Hypertension, controlled, continue losartan, sotalol, prn Hydralazine 8. Type 2 DM, BS are controlled, Continue on home metformin and Actos 9. Severe protein-calorie malnutrition, health management consultant consulted, continue supplement 10. DVT PPx- Lovenox SC Charges/Coding Visit Charges Inpatient E&M: 50578 Subs Hosp L2
[2022-02-13] MEDS: Furosemide 40 MG/4 ML Vial IV (16:29)
[2022-02-13] MEDS: 0.9% Saline Lock 10 ML Syringe IV ×2 (16:29→20:57)
[2022-02-13 17:31] LABS: Bedside Glucose 160 mg/dL (74-106)
--- NOTE | 2022-02-13 19:40 | NURSING ---
TIRE STRIPPER in the room to give pt breathing tx, upon checking 02 pt sats at 89% on RA. This RN placed pt on 2L NC at this time.
[2022-02-13] MEDS: Aspirin E.C. 81 MG Tablet PO (21:43)
[2022-02-13] MEDS: Ceftriaxone 1 GM/50 ML BAG IV (21:45)
[2022-02-13] MEDS: Atorvastatin Calcium 20 MG Tablet PO (21:48)
[2022-02-13 22:15] LABS: Bedside Glucose 161 mg/dL (74-106)
[2022-02-13] MEDS: guaiFENesin 600 MG Tablet PO (22:33)
[2022-02-14] VITALS (9 sets, daily range): BP systolic 101–107; BP diastolic 60–64; PULSE 85–117; RESP 16–20; TEMP 36.3–36.6; O2SAT 92–96
[2022-02-14 05:03] LABS: Absolute Lymphocyte Count 0.32 X10^3/uL (0.83-4.51); Absolute Neutrophil Count 4.9 X10^3/uL (2.0-7.7); Basophil# 0.02 X10^3/uL; Basophil% 0.3 % (0-1); Eosinophil# 0.14 X10^3/uL; Eosinophils% 2.3 % (0-5); Hematocrit 30.9 % (40-54); Hemoglobin 9.4 g/dL (13.0-16.5); Lymphocyte # 0.32 X10^3/ul (0.83-4.51); Lymphocyte % 5.2 % (19-41); Mean Corp Hgb Conc 30.4 g/dL (32-36); Mean Corpuscular Hgb 26.2 pg (27.0-32.0); Mean Corpuscular Volume 86.1 fL (80-94); Mean Platelet Vol. 8.7 fl (6.2-12.0); Monocyte# 0.77 X10^3/uL; Monocyte% 12.4 % (0-10); NRBC Flagged by Analyzer 0 % (0-5); Neutrophil % 78.8 % (47-70); POSITIVE DIFFERENTIAL YES; POSITIVE MORPHOLOGY YES; Platelet Count 256 K/mm3 (150-450); RBC Distribution Width CV 21.4 % (11.6-14.6); Red Blood Count 3.59 M/mm3 (4.6-6.2); White Blood Count 6.2 K/mm3 (4.4-11.0)
[2022-02-14 05:10] LABS: Differential Indicated SCAN CRITERIA MET
[2022-02-14 05:36] LABS: ALB/GLOB Ratio 0.7 RATIO (0.9-2.4); AST(SGOT) 13 U/L (15-37); Alanine Aminotransfer ALT/SGPT 9 U/L (16-61); Albumin, Serum 1.9 g/dL (3.2-5.0); Alkaline Phosphatase 65 U/L (45-117); Anion Gap 7 (5-15); BUN 8 mg/dL (7-18); BUN/Creat Ratio 19.1 RATIO (10-20); Calcium,Total 8.4 mg/dL (8.5-10.1); Chloride 100 mmol/L (98-107); Creatinine, Serum 0.42 mg/dL (0.70-1.30); EST Glomerular Filtration Rate 207 mL/min (>60); Est Glom Filt Rate - Afr Amer 251 mL/min (>60); Estimated Creatinine Clearance 55.42 ml/min; Globulin 2.7 g/dL (2.2-4.2); Glucose 159 mg/dL (74-106); Potassium 3.9 mmol/L (3.5-5.1); Protein, Total 4.6 g/dL (6.4-8.2); Sodium Level 137 mmol/L (136-145)
[2022-02-14] MEDS: metroNIDAZOLE 500 MG/100 ML BAG 100 MG IV ×2 (05:44→15:36)
[2022-02-14 05:59] LABS: Anisocytosis 2+; Differential Comment SCANNED; Macrocytosis 1+; Microcytosis 1+; Polychromasia RARE
[2022-02-14 06:11] LABS: Bedside Glucose 146 mg/dL (74-106)
[2022-02-14] MEDS: Budesonide Respules 0.5 MG/2 ML AMPUL.NEB. INHALATION (07:13)
--- NOTE | 2022-02-14 08:13 | PN.HOSP_ITS ---
Subjective Subjective Patient is an 82-year-old male admitted with fatigue and generalized malaise as well as cough. An assessment of acute hypoxia secondary to aspiration pneumonia made admitted to a monitored bed for further management Objective Data Objective Data Vital Signs: Vital Signs Temp Pulse Resp BP Pulse Ox O2 Del Method O2 Flow Rate 97.9 F 85 16 101/60 94 Nasal Cannula 2 02/14/22 04:40 02/14/22 04:40 02/14/22 04:40 02/14/22 04:40 02/14/22 04:40 02/14/22 04:44 02/14/22 04:44 Oxygen Flow Rate (L/min) 2 Oxygen Delivery Method Nasal Cannula Weight: 68.1 kg Body Mass Index (BMI) 22.2 Intake & Output: Intake and Output for Last 24 Hours 02/12/22 02/13/22 02/14/22 23:59 23:59 23:59 Intake Total 2570.00 / 2570.00 2890.00 / 2890.00 200 / 200 Output Total 450 / 450 275 / 275 Balance 2120.00 / 2120.00 2615.00 / 2615.00 200 / 200 Medical Nutrition Assessment Dietitian: Malnutrition Criteria Met Start: 02/12/22 11:17 Freq: Status: Active Protocol: Document 02/12/22 11:18 AG (Rec: 02/12/22 11:18 [id number]) Nutrition Malnutrition Evidence of Malnutrition Exists Yes Malnutrition (severe): Chronic Evidenced By Suboptimal Energy Intake ( Severe),Weight Loss (Severe), Physical Changes (Moderate) Clinical Problem Chronic Disease or Condition Related Malnutrition Etiology severe, chronic malnutrition r /t inadequate energy intake w/ increased energy needs d/t cancer Signs/Symptoms as evidenced by unintentional 44.2#/23% wt loss < 1 year; estimated PO intake meeting < 75% of estimated energy needs >3 months; Moderate muscle wasting/fat loss evident per physical exam. Status Active Problem Recommendation Dietitian Recommendations/Changes regular diet-texture/ consistency per CRM MARKETING MANAGER; Ensure Plus High Protein 240mL TID w/ meals; will fortify foods when able. Lab / Micro Data Result Diagrams: 02/14/22 04:40 02/14/22 04:40 Labs: Laboratory Results - last 24 hr 02/13/22 11:45: POC Glucose 195 H 02/13/22 17:09: POC Glucose 160 H 02/13/22 21:49: POC Glucose 161 H 02/14/22 04:40: WBC 6.2, RBC 3.59 L, Hgb 9.4 L, Hct 30.9 L, MCV 86.1, MCH 26.2 L , MCHC 30.4 L, RDW Std Deviation 67.0 H, RDW Coeff of Rey 21.4 H, Plt Count 256, MPV 8.7, Immature Gran % (Auto) 1.000 H, Neut % (Auto) 78.8 H, Lymph % (Auto) 5 .2 L, [place] % (Auto) 12.4 H, Eos % (Auto) 2.3, Baso % (Auto) 0.3, Absolute Neuts (auto) 4.9, Absolute Lymphs (auto) 0.32 L, Nucleated RBC % 0, Differential Comment SCANNED, Polychromasia RARE, Anisocytosis 2+, Microcytosis 1+, Macrocytosis 1+ 02/14/22 04:40: Sodium 137, Potassium 3.9, Chloride 100, Carbon Dioxide 30.0, Anion Gap 7, BUN 8, Creatinine 0.42 L, Estim Creat Clear Calc 55.42, Est GFR (MDRD) Af Amer 251, Est GFR (MDRD) Non-Af 207, BUN/Creatinine Ratio 19.1, Glucose 159 H, Calcium 8.4 L, Total Bilirubin 0.20, AST 13 L, ALT 9 L, Alkaline Phosphatase 65, Total Protein 4.6 L, Albumin 1.9 L, Globulin 2.7, Albumin/Globulin Ratio 0.7 L 02/14/22 05:48: POC Glucose 146 H Micro: Microbiology 02/12/22 02:11 Blood Culture (Wb) - Anticubital Left Blood Culture - Preliminary No growth in 48 hours. 02/12/22 01:18 Blood Culture (Wb) - Anticubital Left Blood Culture - Preliminary No growth in 48 hours. 02/12/22 17:20 Sputum, Expectorated/Coughed Gram Stain - Final 02/12/22 17:20 Sputum, Expectorated/Coughed Respiratory Culture - Preliminary Appears to be normal respiratory phil. Further studies to follow. 02/12/22 01:43 Urine, Clean Catch Urine Culture - Preliminary Culture exhibits no growth. 02/12/22 03:20 Mucosa - Nose Respiratory Panel (PCR) - Final Rhinovirus 02/12/22 01:43 Urine, Random Legionella Antigen - Final 02/12/22 01:43 Urine, Random Streptococcus pneumoniae Antigen (M - Final 02/12/22 01:38 Nasal Secretion SARS-CoV-2 Antigen (Rapid) - Final Physical Exam Narrative GENERAL: cooperative HEENT: Atraumatic; normocephalic EYES; Anicteric, Normal Conjunctiva NECK; supple, normal thyroid, RESPIRATORY: Diminished to auscultation CARDIOVASCULAR: Regular S1 S2, GI: soft, normoactive bowel sounds, : No Renal angle tenderness; EXTREMITIES: No edema, no clubbing, MUSCULOSKELETAL: no muscle wasting NEURO: Awake; no lateralizing signs. SKIN: No Rash PSYCH; Flat affect Assessment & Plan Assessment/Plan (1) Aspiration pneumonia: PLAN: Plan Patient is an 82-year-old male admitted with fatigue and generalized malaise as well as cough. An assessment of acute hypoxia secondary to aspiration pneumonia made admitted to a monitored bed for further management 1. Acute hypoxia ? Secondary to aspiration pneumonia patient managed with ceftriaxone as well as Flagyl in addition to supplemental oxygen. Patient to be assessed for home oxygen prior to possible discharge 2. Dysphagia ? Consult placed to speech therapy 3. Esophageal CA ? Status post stent placement patient is followed by Dr. Cook as outpatient 4. Anemia - Secondary to chronic disorder monitoring H&H and transfuse if patient becomes symptomatic or hemoglobin falls below 7 5. Paroxysmal A. fib ? Rate controlled on sotalol sotalol. Patient is also on aspirin did continue 6. Hypertension - Blood pressure controlled, home medications continued with dose adjustment as needed 7. Severe protein calorie malnutrition ? As evidenced by suboptimal energy intake, severe weight loss and physical changes this is secondary to patient multiple medical comorbidities recommendation as per dietitian 8. Diabetes mellitus type II -patient's oral hypoglycemics continued in addition to Accu-Cheks a.c. and at bedtime and covered with sliding scale insulin 9. DVT prophylaxis ? SC Lovenox 10. Physical deconditioning - Requested for PT OT eval and social science teacher to assist with discharge planning Charges/Coding Visit Charges Inpatient E&M: 70929 Subs Hosp L2
[2022-02-14] MEDS: Sotalol Hydrochloride 80 MG Tablet 40 MG PO (09:09)
[2022-02-14] MEDS: Enoxaparin 40 MG/0.4 ML Syringe SC (09:11)
[2022-02-14] MEDS: guaiFENesin 600 MG Tablet PO (09:12)
[2022-02-14] MEDS: Insulin Lispro 100 UNIT/ML INSULN.PEN SC (11:19)
[2022-02-14 11:40] LABS: Bedside Glucose 181 mg/dL (74-106)
--- NOTE | 2022-02-14 13:29 | PCM.DC.SUM ---
Providers Date of Admission: 02/12/22 Date of Discharge: 02/14/22 Primary Care Physician: Dr. Eran Moeller, Reason For Visit: ASPIRATION PNA, HYPOXIA, FAILED OUTPATIENT ABX Diagnosis Discharge Diagnosis (1) Aspiration pneumonia: Status: Acute Code(s): J69.0 - Pneumonitis due to inhalation of food and vomit Plan Patient is an 82-year-old male admitted with fatigue and generalized malaise as well as cough. An assessment of acute hypoxia secondary to aspiration pneumonia made admitted to a monitored bed for further management 1. Acute hypoxia ? Secondary to aspiration pneumonia patient managed with ceftriaxone as well as Flagyl in addition to supplemental oxygen. Patient to be assessed for home oxygen prior to possible discharge 2. Dysphagia ? Consult placed to speech therapy 3. Esophageal CA ? Status post stent placement patient is followed by Dr. Cook as outpatient 4. Anemia - Secondary to chronic disorder monitoring H&H and transfuse if patient becomes symptomatic or hemoglobin falls below 7 5. Paroxysmal A. fib ? Rate controlled on sotalol sotalol. Patient is also on aspirin did continue 6. Hypertension - Blood pressure controlled, home medications continued with dose adjustment as needed 7. Severe protein calorie malnutrition ? As evidenced by suboptimal energy intake, severe weight loss and physical changes this is secondary to patient multiple medical comorbidities recommendation as per dietitian 8. Diabetes mellitus type II -patient's oral hypoglycemics continued in addition to Accu-Cheks a.c. and at bedtime and covered with sliding scale insulin 9. DVT prophylaxis ? SC Lovenox 10. Physical deconditioning - Requested for PT OT eval and nephrology social worker to assist with discharge planning Medications at Discharge Home Medications Pioglitazone Hcl/Metformin Hcl [Actoplus Met 15 Mg-500 Mg Tab] 1 tab PO BID 11/08/16 aspirin 81 mg tablet,delayed release 81 mg PO QHS 11/08/16 cholecalciferol (vitamin D3) 50 mcg (2,000 unit) capsule (Vitamin D3) 2,000 unit PO DAILY 11/08/16 ketotifen fumarate 0.025 % (0.035 %) eye drops (Zaditor) 1 drp BID 11/08/16 losartan 25 mg tablet 25 mg PO DAILY 11/08/16 metformin 500 mg tablet 500 mg PO DAILY 11/08/16 simvastatin 40 mg tablet 40 mg PO DINNER 11/08/16 sotalol 80 mg tablet (Betapace AF) 40 mg PO BID 11/08/16 usklzti-dhtkijjmdvgeh-zcyxfugq tablet 1 tab PO Q8H Check with primary doctor 02/12/22 ofloxacin 0.3 % eye drops 1 drp EACH EYE QHS Check with primary doctor 02/12/22 cefdinir 300 mg capsule 300 mg PO BID #14 caps 02/14/22 metronidazole 500 mg tablet 500 mg PO TID #20 tabs 02/14/22 Hospital Course Summary of Care Provided Minutes Spent on Discharge: 35 Physical Exam Narrative GENERAL: cooperative HEENT: Atraumatic; normocephalic EYES; Anicteric, Normal Conjunctiva NECK; supple, normal thyroid, RESPIRATORY: Diminished to auscultation CARDIOVASCULAR: Regular S1 S2, GI: soft, normoactive bowel sounds, : No Renal angle tenderness; EXTREMITIES: No edema, no clubbing, MUSCULOSKELETAL: no muscle wasting NEURO: Awake; no lateralizing signs. SKIN: No Rash PSYCH; Flat affect Medical Records Data Medical Nutrition Assessment Dietitian: Malnutrition Criteria Met Start: 02/12/22 11:17 Freq: Status: Active Protocol: Document 02/12/22 11:18 AG (Rec: 02/12/22 11:18 [id number]) Nutrition Malnutrition Evidence of Malnutrition Exists Yes Malnutrition (severe): Chronic Evidenced By Suboptimal Energy Intake ( Severe),Weight Loss (Severe), Physical Changes (Moderate) Clinical Problem Chronic Disease or Condition Related Malnutrition Etiology severe, chronic malnutrition r /t inadequate energy intake w/ increased energy needs d/t cancer Signs/Symptoms as evidenced by unintentional 44.2#/23% wt loss < 1 year; estimated PO intake meeting < 75% of estimated energy needs >3 months; Moderate muscle wasting/fat loss evident per physical exam. Status Active Problem Recommendation Dietitian Recommendations/Changes regular diet-texture/ consistency per BULLET CHARGING MACHINE OPERATOR; Ensure Plus High Protein 240mL TID w/ meals; will fortify foods when able. Weight / BMI Weight Weight: 68.1 kg Body Mass Index (BMI) 22.2 ABG / Lab / Microbiology Data Result Diagrams: 02/14/22 04:40 02/14/22 04:40 Laboratory: Laboratory Results - last 24 hr 02/13/22 17:09: POC Glucose 160 H 02/13/22 21:49: POC Glucose 161 H 02/14/22 04:40: WBC 6.2, RBC 3.59 L, Hgb 9.4 L, Hct 30.9 L, MCV 86.1, MCH 26.2 L, MCHC 30.4 L, RDW Std Deviation 67.0 H, RDW Coeff of Rey 21.4 H, Plt Count 256, MPV 8.7, Immature Gran % (Auto) 1.000 H, Neut % (Auto) 78.8 H, Lymph % (Auto) 5.2 L, [place] % (Auto) 12.4 H, Eos % (Auto) 2.3, Baso % (Auto) 0.3, Absolute Neuts (auto) 4.9, Absolute Lymphs (auto) 0.32 L, Nucleated RBC % 0, Differential Comment SCANNED, Polychromasia RARE, Anisocytosis 2+, Microcytosis 1+, Macrocytosis 1+ 02/14/22 04:40: Sodium 137, Potassium 3.9, Chloride 100, Carbon Dioxide 30.0, Anion Gap 7, BUN 8, Creatinine 0.42 L, Estim Creat Clear Calc 55.42, Est GFR (MDRD) Af Amer 251, Est GFR (MDRD) Non-Af 207, BUN/Creatinine Ratio 19.1, Glucose 159 H, Calcium 8.4 L, Total Bilirubin 0.20, AST 13 L, ALT 9 L, Alkaline Phosphatase 65, Total Protein 4.6 L, Albumin 1.9 L, Globulin 2.7, Albumin/Globulin Ratio 0.7 L 02/14/22 05:48: POC Glucose 146 H 02/14/22 11:17: POC Glucose 181 H Microbiology: Microbiology 02/12/22 17:20 Sputum, Expectorated/Coughed Gram Stain - Final 02/12/22 17:20 Sputum, Expectorated/Coughed Respiratory Culture - Final Mixed normal respiratory phil. No Streptococcus pneumoniae, beta-hemolytic Streptococcus or Staphylococcus aureus isolated. 02/12/22 01:43 Urine, Clean Catch Urine Culture - Final Presumptive C albicans 02/12/22 02:11 Blood Culture (Wb) - Anticubital Left Blood Culture - Preliminary No growth in 48 hours. 02/12/22 01:18 Blood Culture (Wb) - Anticubital Left Blood Culture - Preliminary No growth in 48 hours. 02/12/22 03:20 Mucosa - Nose Respiratory Panel (PCR) - Final Rhinovirus 02/12/22 01:43 Urine, Random Legionella Antigen - Final 02/12/22 01:43 Urine, Random Streptococcus pneumoniae Antigen (M - Final 02/12/22 01:38 Nasal Secretion SARS-CoV-2 Antigen (Rapid) - Final D/C Instructions Discharge Diet: No restrictions Discharge Activity: Return to Normal Activity Call your doctor if you observe: Fever of 101 or Higher, Shortness of breath, Fainting spells and Chest pain Meaningful Use Info Meaningful Use Diagnoses (Choose all that apply): None applicable Discharge Plan Admission Admit Date/Time: 02/12/22 03:04 Attending Provider: Jerry Ba Primary Care Provider: Eran Moeller Consulting Providers: Kelly Phillips ; Shahida Malagon Discharge Orders/Prescriptions Prescriptions: New cefdinir 300 mg capsule 300 mg PO BID Qty: 14 0RF metronidazole 500 mg tablet 500 mg PO TID Qty: 20 0RF Continued metformin 500 MG tablet 500 mg PO DAILY Label Comments: DIABETES ketotifen fumarate [Zaditor] 5 ML drops 1 drp Each Eye BID Label Comments: SINUS sotalol [Betapace AF] 80 MG tablet 40 mg PO BID Label Comments: HEART aspirin 81 MG tablet 81 mg PO QHS Label Comments: HEART HEALTH simvastatin 40 MG tablet 40 mg PO DINNER Label Comments: CHOLESTEROL losartan 25 MG tablet 25 mg PO DAILY Label Comments: BP cholecalciferol (vitamin D3) [Vitamin D3] 2,000 UNIT capsule 2,000 unit PO DAILY Label Comments: SUPPLEMENT Pioglitazone Hcl/Metformin Hcl [Actoplus Met 15 Mg-500 Mg Tab] 1 TAB tablet 1 tab PO BID Label Comments: DIABETES bhtxlmb-cjaxqiiukyjpg-ldztdpna Tablet 1 tab PO Q8H Rx Instructions: PAIN ofloxacin 0.3 % drops 1 drp EACH EYE QHS Label Comments: place 1 drop into both eyes at bedtime Discontinued amoxicillin-pot clavulanate [Augmentin] 875-125 mg Tablet 1 tab PO BID Referrals / Follow Up: Eran Moeller DO [Primary Care Provider] - Disposition Disposition (needs filled in before D/C Order can be placed): Home Health Service Charges/Coding Visit Charges Inpatient E&M: 21345 Disch Hosp
--- NOTE | 2022-02-14 14:59 | CHAPLAIN ---
Type of Pastoral Visit _x__ Initial Visit ___ Follow-up Visit ___ On-call Visit ___ General Patient Visit ___ Spiritual Assessment ___ Family Conference ___ Bereavement ___ Rapid Response ___ Code Blue ___ Other (describe below) Pastoral Care Referral From _x__ Patient ___ Family ___ Nurse ___ Physician ___ Bottle Capping Machine Operator ___ Telephone Order Supervisor ___ Other (describe below) Sacrament/Intervention _x__ Active listening ___ Anointing ___ Zoroastrian ___ Bereavement ___ Communion ___ Kirsty exploration ___ ___ Life review ___ Prayer ___ Reconciliation ___ Sacrament of Sick _x__ Supportive presence ___ Wedding ___ Other (describe below) Pastoral Comments patient is sitting on side of bed and is very welcoming of this cat skinner; spouse at bedside too; pt says that he is waiting for another test and that he really hopes he can go home; pt states no distress or concerns; CHUTE TENDER came to take pt to testing
--- NOTE | 2022-02-14 15:02 | SP.MBSS_ITS ---
Modified Barium Swallow - Patient Information Study Date: 02/14/22 Study Time: 14:00 Direct Billable Minutes: 110 Total Minutes procedure & reportin Diagnosis: Aspiration PNA (J69.9) Referring Physician: Jerry Ba Reason for Referral: Objectively assess swallow function, risk for aspiration, and determine recommendations for least restrictive diet textures and compensatory strategies to improve safety of swallow. Medical History: The patient is an 82 y/o M w/ PMH including PAF, HTN, HLD, Diabetes mellitus type II, PAF, Chronic anemia/Fe deficiency anemia with routine IV Fe supplementation, recent diagnosis of esophageal cancer. He finished 12 fractions of radiation last week and is planned for port placement on 02/23/2022 with plans for chemotherapy. He follows with Dr. Cook. Pt had a recent diagnosis of aspiration PNA on antibiotics (augmentin per Dr. Billings/Dr. Cook starting 02/04/22) as an outpatient. He had worsening dyspnea, increased fatigue, cough, and hypoxia, which prompted ED evaluation 02/12/2022. Pt admitted for management of aspiration pneumonia. The patient denies coughing with food or drink. He does avoid meats and feels fearful of certain foods because he once had food caught in his throat for 3 days. He has had difficulty eating for several months because of his esophageal cancer. He also reports having PNA 3X in the past 2 years. BSE completed during hospitalization and the patient was placed on soft and bite size textures / thin liquids. He was referred for MBSS to objectively assess swallow function and aspiration risk. Current Diet Ordered: Minced and moist textures / Thin liquids Mental Status: WNL Respiratory Status: Oxygenating on Room Air - Penetration-Aspiration Scale Penetration-Aspiration Scale: OBJECTIVE ASSESSMENT OF SWALLOW FUNCTION (QUANTITATIVE ? PER TRIAL): PENETRATION / ASPIRATION SCALE (SHARMA): 1 = does not enter airway 2 = enters airway/above vocal folds/ejected 3 = enters airway/above vocal folds/not ejected 4 = enters airway/contacts vocal folds/ejected 5 = enters airway/contacts vocal folds/not ejected 6 = enters airway/below vocal folds/ejected 7 = enters airway/below vocal folds/not ejected despite effort 8 = enters airway/below vocal folds/no effort VIDEOFLOROSCOPIC SCALE SCORE (SHARMA): Grade I = aspiration of material that has penetrated into the laryngeal vestibule, intact cough reflex Grade II = aspiration < 10 % of the bolus, intact cough reflex Grade III = aspiration of < 10 % of the bolus, reduced cough reflex or aspiration of > 10 % of the bolus, intact cough reflex Grade IV = aspiration of > 10 % of the bolus, reduced cough reflex - Penetration-Aspiration Scale Score Thin Liquid via teaspoon Result: 1= does not enter airway Thin Liquid via teaspoon Trial 2 Result: 1= does not enter airway Thin Liquid via small single sip from cup Result: 1= does not enter airway Thin Liquid via sequential sips from cup Result: 1= does not enter airway [place] Thick Liquid via small single sip from cup Result: 1= does not enter airway [place] Thick Liquid via small single sip from cup Result: 1= does not enter airway Pudding via teaspoon Result: 1= does not enter airway - piecemeal deglutition 1/2 Cookie Result: 1= does not enter airway - piecemeal deglutition Thin Liquid via sequential sips from straw Result: 1= does not enter airway - Oral Phase Labial Seal: No Labial Escape Tongue Control During Bolus Hold: Posterior escape of less than half of bolus Bolus Preparation/Mastication: Slow prolonged chewing/mashing with complete recollection Bolus Transport/Lingual Motion: Repetitive/disorganized tongue motion Oral Residue: Majority of bolus remaining - piecemeal of deglutition of cookie and pudding - Pharyngeal Phase Initiation of Pharyngeal Swallow: Bolus head at posterior laryngeal surgace of epiglottis Soft Palate Elevation: No bolus between soft palate and pharyngeal wall Laryngeal Elevation: Comp. Superior move thyroid cart w/comp. apprx arytenoid cart-epig pet Anterior Hyoid Excursion: Partial anterior movement Epiglottic Movement: Partial inversion Laryngeal Vestibule Closure at Height of Swallow: Complete; no air/contrast in laryngeal vestibule Pharyngeal Stripping Wave: Present - diminished Pharyngoesophageal Segment Opening: Parital distension and partial duration; parital obstruction of flow Tongue Base Retraction: Wide column of contrast between tongue base & post. pharyngeal wall Pharyngeal Residue: Collection of residue within or on pharyngeal structures - Esophageal Phase Esophageal Clearance: Esophageal retention w/ retrograde flow below pharyngoesophageal seg. - slow emptying - Diagnosis/Impression Diagnosis: Mild oropharyngeal phase dysphagia (R13.12) Impression: The oral phase is primarily marked by... -Decreased bolus control with <1/2 of the bolus spilling posteriorly to the posterior surface of the epiglottis prior to swallow onset observed with sequential sips of thin liquids. -Repetitive tongue motion for A-P transport. -Prolonged, but adequate chewing of 1/2 cookie. For pudding and cookie, the patient required piecemeal deglutition (~7-9) swallows to clear the oral cavity. He would benefit from training to properly collect bolus on tongue in preparation for A-P transport. The pharyngeal phase is primarily marked by... -Decreased anterior hyoid excursion resulting in decreased epiglottic inversion and decreased UES opening. -Decreased tongue base retraction, epiglottic inversion, pharyngeal stripping wave, and UES opening resulted in mild-moderate pharyngeal residues in the vall ecula and pyriforms after the swallow. He is at increased risk for post prandial aspiration due to extent of pharyngeal residue. -No laryngeal penetration or aspiration observed during the study. The esophageal phase is primarily marked by... -Mild esophageal retention of pudding in the esophagus with retrograde flow remaining well below UES. -Slowed emptying. - Recommendations Diet: Thin Liquids - Soft and bite size textures (IDDSI Level 6) Compensatory Strategies: Small Bites, Small Sips, Slow Rate - sips one at a time, Multiple Swallows - intermittent double swallow, especially with larger bites/sips or sensation of pharyngeal retention, Alternate bites/solids and sips/liquids, Sitting upright, Remain sitting upright for 30 minutes after PO intake Supervision: Assist as needed - Family to assist as needed - pt lives with his . Recommend Repeat Modified Barium Swallow: TBD - Repeat MBSS if concerned for worsening s/s of aspiration with oral intake. Need for Skilled Speech Therapy Services: Yes Comment: Will recommend the patient for outpatient dysphagia therapy to address deficits in oropharyngeal swallow function. Will recommend the patient for oropharyngeal strengthening to improve lingual strength/coordination, tongue base retraction, anterior hyoid excursion, and duration of UES opening (lingual resistance and coordination exercises, Portia, CTAR, effortful swallows). The patient would benefit from thorough education regarding diet recommendations and recommended compensatory strategies. Education Completed: 1. Described result of evaluation., 2. Pt understands evaluation & agrees with goals and treatment plan., 4. Family/caregivers understand evaluation & agree w/ goals & tx plan., 7. Pt requires further education on strategies & risks. Comment: Thorough education re: results and recommendations of MBSS with discussion, review of images with pt, and handouts for pt and his . Education well received. - Status Active ST Patient: Active - Contact Information [facility] Speech Therapy:: Lilian Silva M.A. [facility] Speech-Language Pathologist [facility] [address] [place] [address] [email or web address] [phone] 02/14/22 16:16
--- NOTE | 2022-02-14 15:05 | CASEMGMT ---
Per Elise PERALTA, pt does not qualify for home oxygen. Pt has been independent in room and states no concerns with going home. Keyshawn PERALTA CM
--- NOTE | 2022-02-14 15:08 | PHA.DC.MR ---
Pharmacy Service has performed discharge medication reconciliation for this patient. The patient's discharge medication list was reviewed for discrepancies and discrepancies were resolved. Unable to personal financial counselor, medications reviewed. Home Medications Pioglitazone Hcl/Metformin Hcl [Actoplus Met 15 Mg-500 Mg Tab] 1 tab PO BID 11/08/16 aspirin 81 mg tablet,delayed release 81 mg PO QHS 11/08/16 cholecalciferol (vitamin D3) 50 mcg (2,000 unit) capsule (Vitamin D3) 2,000 unit PO DAILY 11/08/16 ketotifen fumarate 0.025 % (0.035 %) eye drops (Zaditor) 1 drp BID 11/08/16 losartan 25 mg tablet 25 mg PO DAILY 11/08/16 metformin 500 mg tablet 500 mg PO DAILY 11/08/16 simvastatin 40 mg tablet 40 mg PO DINNER 11/08/16 sotalol 80 mg tablet (Betapace AF) 40 mg PO BID 11/08/16 uhwfxfy-cwpyghdpbnohl-eicfmgeb tablet 1 tab PO Q8H Check with primary doctor 02/12/22 ofloxacin 0.3 % eye drops 1 drp EACH EYE QHS Check with primary doctor 02/12/22 cefdinir 300 mg capsule 300 mg PO BID #14 caps 02/14/22 metronidazole 500 mg tablet 500 mg PO TID #20 tabs 02/14/22
--- NOTE | 2022-02-14 15:21 | CASEMGMT ---
Per speech therapy, pt to have OP speech at discharge. Pt provided script for OP speech therapy, voices understanding and voices no further questions/concerns/needs. SStkarishma RN CM
--- NOTE | 2022-02-14 15:41 | CASEMGMT ---
Patient does not have a Healthcare Power of An/Sqq 89(V)15 [employer] or Healthcare Living Will. Patient is not interested in documents. Keerthi DEGROOT
[2022-02-14] MEDS: Acetaminophen 325 MG Tablet 650 MG PO (16:27)
== END 2022-02-14 17:17 | disposition home health service (06) | DRG 177 ==
LOC: ED 03:13 → PCU 03:33
PROVIDERS: Internal Medicine; Admitting Provider Family Medicine; Emergency Provider Student in an Organized Health Care Education/Training Program; Visit Provider Internal Medicine
DX: J69.0 Pneumonitis due to inhalation of food and vomit (principal); E43 Unspecified severe protein-calorie malnutrition; C15.9 Malignant neoplasm of esophagus, unspecified; E11.9 Type 2 diabetes mellitus without complications; D63.0 Anemia in neoplastic disease; D50.9 Iron deficiency anemia, unspecified; I48.0 Paroxysmal atrial fibrillation; E78.5 Hyperlipidemia, unspecified; I10 Essential (primary) hypertension; J45.909 Unspecified asthma, uncomplicated; R09.02 Hypoxemia; Z68.22 Body mass index [BMI] 22.0-22.9, adult; Z79.82 Long term (current) use of aspirin; Z79.84 Long term (current) use of oral hypoglycemic drugs; Z79.899 Other long term (current) drug therapy; Z87.891 Personal history of nicotine dependence
CPT/HCPCS: 36415; 71045; 71275; 74230; 80053; 81001; 82962; 83605; 83735; 84100; 84484; 85025; 85610; 85730; 87040; 87070; 87086; 87088; 87205; 87449; 87633; 87641; 87811; 92507; 92610; 92611; 93005; 94640; 97110; 97162; 97166; 97530; 97535; 99285; J7030; Q9967; A4216; J1940

== ENCOUNTER 2022-03-04 12:57 | Inpatient (IN) | payer MEDICARE, SELFPAY ==
[2022-03-04] VITALS (13 sets, daily range): BP systolic 94–118; BP diastolic 56–69; PULSE 89–146; RESP 14–32; TEMP 36.8–37.9; O2SAT 86–98; BMI 23.6; BMI 24.2
--- NOTE | 2022-03-04 13:25 | EKG12_ITS ---
Test Reason : SEPSIS WORK UP Blood Pressure : / mmHG Vent. Rate : 148 BPM Atrial Rate : 000 BPM P-R Int : 000 ms QRS Dur : 070 ms QT Int : 280 ms P-R-T Axes : 000 -17 068 degrees QTc Int : 439 ms Atrial fibrillation with rapid ventricular response with premature ventricular or aberrantly conducte d complexes Low voltage QRS Inferior infarct , age undetermined Abnormal ECG Confirmed by EDENILSON GONSALVES, SHANDA ([id number]), staff editor MICAH VEGA ([id number]) on 03/07/2022 1:21:38 PM Referred By: JHONNY Confirmed By:SHANDA PYLE MD
--- NOTE | 2022-03-04 13:27 | EDS_ITS ---
HPI History of Present Illness Chief Complaint: Confusion Informant: patient and spouse/S.O. Onset/Context/Timing Onset: Today Narrative Narrative: Patient presents with for evaluation of confusion and weakness. He has a history of esophageal cancer. He follows with Dr. Edward for his oncology care. He recently had a port placed in his chest. states that he started chemo 2 days ago. They placed a chemo pump on his chest with access through his port and this ran until this morning. states that he did make a statement this morning where he seemed confused. She helped him get ready and they went to their appointment at the oncology office. His pump was removed. She states his blood pressure was low there and they gave him a liter of fluids over 2 hours. Nursing staff was able to help get the patient in the car. When they got home the patient was too weak to get out of the vehicle. They have not noted significant fever at home. reports poor p.o. intake but has been trying to drink Ensure. [facility] Medical History Aspiration pneumonia Asthma Chronic anemia Diabetes mellitus, type 2 Esophageal carcinoma HLD (hyperlipidemia) HTN (hypertension) Iron deficiency anemia PAF (paroxysmal atrial fibrillation) Home Medications Pioglitazone Hcl/Metformin Hcl [Actoplus Met 15 Mg-500 Mg Tab] 1 tab PO BID 11/08/16 [History Last Taken Unknown] aspirin 81 mg tablet,delayed release 81 mg PO QHS 11/08/16 [History Last Taken 11/14/16 09:00] cholecalciferol (vitamin D3) 50 mcg (2,000 unit) capsule (Vitamin D3) 2,000 unit PO DAILY 11/08/16 [History Last Taken Unknown] ketotifen fumarate 0.025 % (0.035 %) eye drops (Zaditor) 1 drp BID 11/08/16 [History Last Taken Unknown] losartan 25 mg tablet 25 mg PO DAILY 11/08/16 [History Last Taken Unknown] metformin 500 mg tablet 500 mg PO DAILY 11/08/16 [History Last Taken Unknown] simvastatin 40 mg tablet 40 mg PO DINNER 11/08/16 [History Last Taken Unknown] sotalol 80 mg tablet (Betapace AF) 40 mg PO BID 11/08/16 [History Last Taken 11/14/16 09:00] hprdgae-vbqxdahgzgacy-dgozjaak tablet 1 tab PO Q8H Check with primary doctor 02/12/22 [History Last Taken Unknown] ofloxacin 0.3 % eye drops 1 drp EACH EYE QHS Check with primary doctor 02/12/22 [History Last Taken 02/11/22] cefdinir 300 mg capsule 300 mg PO BID #14 caps 02/14/22 [Rx Last Taken Unknown] metronidazole 500 mg tablet 500 mg PO TID #20 tabs 02/14/22 [Rx Last Taken Unknown] Allergy/AdvReac Type Severity Reaction Status Date / Time albuterol Allergy Other Verified 03/04/22 13:01 amoxicillin Allergy Other Verified 03/04/22 13:01 levofloxacin [From Levaquin] Allergy Other Verified 03/04/22 13:01 moxifloxacin [From Avelox] Allergy Other Verified 03/04/22 13:01 sulfamethoxazole Allergy Rash Verified 03/04/22 13:01 [From Bactrim] trimethoprim [From Bactrim] Allergy Rash Verified 03/04/22 13:01 Family History Father Hypertension Diabetes Heart disease CAD (coronary artery disease) Sister Hypertension Diabetes Mother Hypertension Surgical History H/O sinus surgery History of esophageal surgery Status post myringotomy with tube placement of both ears Social History household members: spouse Smoking Status: Never smoker alcohol intake: current alcohol intake frequency: a few times a month substance use type: does not use ROS ROS ED Constitutional Constitutional ED: Denies chills or fever(s) Eyes Eyes: Denies change in vision or discharge from eye(s) ENT ENT ED: Denies discharge from eye(s), rhinorrhea or sore throat Cardiovascular Cardiovascular: Denies chest pain or palpitations Respiratory/Chest Respiratory/Chest: Denies cough or dyspnea Gastrointestinal Gastrointestinal: Reports other Details: Poor p.o. intake ; Denies abdominal pain, diarrhea, nausea or vomiting Genitourinary Genitourinary ED: Reports difficulty urinating; Denies dysuria Musculoskeletal Musculoskeletal: Denies back pain or extremity pain Integumentary Denies Abrasions or rash Neurologic Neurologic: Reports weakness; Denies headache(s) Psychiatric Psychiatric: Denies anxiety or depression Allergic/Immunologic Allergic/Immunologic ED: Denies lip swelling or urticaria EXAM Physical Exam Const Vital Signs: 03/04/22 12:57 03/04/22 13:22 03/04/22 13:23 Temperature 100.3 F H Temperature Source Temporal Pulse Rate 120 H 146 H Respiratory Rate 14 32 H Respiratory Effort Normal Non-Labored Respiratory Pattern Normal Blood Pressure 118/61 116/69 Blood Pressure Mean 80 84 Pulse Ox 86 95 Oxygen Delivery Method Room Air Nasal Cannula Oxygen Flow Rate (L/min) 3 Positive well developed and cachectic General Appearance ED: well developed and cachectic Nutritional Appearance: cachectic HEENT Reports normocephalic and head/scalp atraumatic Eyes PERRL and EOMs intact bilaterally Neck supple Chest Wall inspection of chest normal and palpation of chest normal Resp clear to auscultation bilaterally Resp Narrative: Mild tachypnea. Diminished breath sounds bilateral bases. Cardio Rate: tachycardic Rhythm: abnormal rhythm irregularly irregular GI non-tender Auscultation: hypoactive bowel sounds Palpation: soft Extremity Extremity Narrative: 3+ bilateral lower extremity edema. Symmetric. Neuro no sensory deficits noted Neuro Narrative: Patient rest with eyes closed. He will intermittently answer some questions. Majority of history is from at bedside. Sensorium / Orientation: alert Psych mental status grossly normal Skin no rashes or lesions noted MDM MDM MDM Narrative Medical decision making narrative: Patient placed on balloon tester. EKG, chest x-ray, lab work obtained. Sepsis order set initiated. Lab Data Attestation: I reviewed the patient's lab results. Labs: Laboratory Results - last 24 hr 03/04/22 03/04/22 03/04/22 13:45 13:45 13:45 WBC 3.9 L RBC 3.71 L Hgb 10.0 L Hct 32.0 L MCV 86.3 MCH 27.0 MCHC 31.3 L RDW Std Deviation 71.1 H RDW Coeff of Rey 22.8 H Plt Count 179 MPV 9.0 Immature Gran % (Auto) 0.500 Neut % (Auto) 86.3 H Lymph % (Auto) 9.6 L [place] % (Auto) 3.6 Eos % (Auto) 0.0 Baso % (Auto) 0.0 Absolute Neuts (auto) 3.3 Absolute Lymphs (auto) 0.37 L Nucleated RBC % 0 PT 13.2 INR 1.0 APTT 31.9 Sodium 133 L Potassium 4.1 Chloride 96 L Carbon Dioxide 30.0 Anion Gap 7 BUN 17 Creatinine 0.44 L Estim Creat Clear Calc 56.95 Est GFR (MDRD) Af Amer 238 Est GFR (MDRD) Non-Af 197 BUN/Creatinine Ratio 38.7 H Glucose 212 H Lactic Acid Calcium 8.2 L Total Bilirubin 0.30 AST 20 ALT 15 L Alkaline Phosphatase 67 Total Protein 4.4 L Albumin 2.1 L Globulin 2.3 Albumin/Globulin Ratio 0.9 03/04/22 13:45 WBC RBC Hgb Hct MCV MCH MCHC RDW Std Deviation RDW Coeff of Rey Plt Count MPV Immature Gran % (Auto) Neut % (Auto) Lymph % (Auto) [place] % (Auto) Eos % (Auto) Baso % (Auto) Absolute Neuts (auto) Absolute Lymphs (auto) Nucleated RBC % PT INR APTT Sodium Potassium Chloride Carbon Dioxide Anion Gap BUN Creatinine Estim Creat Clear Calc Est GFR (MDRD) Af Amer Est GFR (MDRD) Non-Af BUN/Creatinine Ratio Glucose Lactic Acid 1.1 Calcium Total Bilirubin AST ALT Alkaline Phosphatase Total Protein Albumin Globulin Albumin/Globulin Ratio Radiography Chest X-Ray - ED: 1 View, Read by ED Physician, Chronic Changes, Right Infiltrate and Left Infiltrate Diagnostic Testing: Clinical Impression(s) from Imaging Studies Chest X-Ray 03/04/22 14:00 IMPRESSION: Bibasilar pulmonary infiltrates worse at the right lung base with blunting of the left costophrenic angle. Electronically Signed: Prasanth Ennis MD at 14:16 EDT , EKG Initial EKG: Attestation: I personally reviewed and interpreted this EKG as follows: Interpretation: Atrial Fibrillation (A. fib RVR at 148. No acute ischemia.) Treatment and Re-Evaluation Narrative: Patient has been given IV fluid bolus. Heart rate will still vary between 112 and 140s. Blood pressure is in the 1 teens. CBC reveals white count low at 3.9. 86% neutrophils noted. Hemoglobin is 10.0. Coags are unremarkable. Sodium is 133 which appears consistent with his baseline. Potassium is normal. BUN and creatinine are 17 and 0.44. Glucose is 212. LFTs are unremarkable. Lactic acid is normal at 1.1. EKG per my interpretation is A. fib RVR with no acute ischemia. Chest x-ray per my interpretation reveals bibasilar infiltrates. Chronic changes noted. Radiology interpretation is also reviewed. Due to the patient's allergies he is given Rocephin and Flagyl which she did well with on last admission for aspiration pneumonia. Cultures have all been obtained. I spoke with patient's oncologist, Dr. Cook. I will speak with hospitalist regarding admission. Discharge Plan Triage Chief Complaint: Confusion ED Provider: Linnette Norton Dx/Rx/DC Orders Clinical Impression: Aspiration pneumonia, Atrial fibrillation with RVR Prescriptions: No Action metformin 500 MG tablet 500 mg PO DAILY Label Comments: DIABETES ketotifen fumarate [Zaditor] 5 ML drops 1 drp Each Eye BID Label Comments: SINUS sotalol [Betapace AF] 80 MG tablet 40 mg PO BID Label Comments: HEART aspirin 81 MG tablet 81 mg PO QHS Label Comments: HEART HEALTH simvastatin 40 MG tablet 40 mg PO DINNER Label Comments: CHOLESTEROL losartan 25 MG tablet 25 mg PO DAILY Label Comments: BP cholecalciferol (vitamin D3) [Vitamin D3] 2,000 UNIT capsule 2,000 unit PO DAILY Label Comments: SUPPLEMENT Pioglitazone Hcl/Metformin Hcl [Actoplus Met 15 Mg-500 Mg Tab] 1 TAB tablet 1 tab PO BID Label Comments: DIABETES uwxydnh-nbbsqxdtqzkrp-jonzjytx Tablet 1 tab PO Q8H Rx Instructions: PAIN ofloxacin 0.3 % drops 1 drp EACH EYE QHS Label Comments: place 1 drop into both eyes at bedtime cefdinir 300 mg capsule 300 mg PO BID Qty: 14 0RF metronidazole 500 mg tablet 500 mg PO TID Qty: 20 0RF Primary Care Provider: Eran Moeller Referrals: Eran Moeller DO [Primary Care Provider] - Disposition Disposition: Acute Care Hospital [facility]
[2022-03-04] MEDS: Acetaminophen 500 MG Tablet 1000 MG PO (13:55)
[2022-03-04 13:57] LABS: Absolute Lymphocyte Count 0.37 X10^3/uL (0.83-4.51); Absolute Neutrophil Count 3.3 X10^3/uL (2.0-7.7); Lymphocyte # 0.37 X10^3/ul (0.83-4.51); Lymphocyte % 9.6 % (19-41); Mean Corp Hgb Conc 31.3 g/dL (32-36); Mean Corpuscular Volume 86.3 fL (80-94); Monocyte# 0.14 X10^3/uL; Monocyte% 3.6 % (0-10); NRBC Flagged by Analyzer 0 % (0-5); Neutrophil # 3.32 X10^3/uL (2.7-7.7); Neutrophil % 86.3 % (47-70); POSITIVE DIFFERENTIAL YES; POSITIVE MORPHOLOGY YES; Platelet Count 179 K/mm3 (150-450); RBC Distribution Width CV 22.8 % (11.6-14.6); RBC Distribution Width SD 71.1 fl (35.1-43.9); Red Blood Count 3.71 M/mm3 (4.6-6.2); White Blood Count 3.9 K/mm3 (4.4-11.0)
[2022-03-04 13:58] LABS: Differential Indicated SCAN CRITERIA MET
--- NOTE | 2022-03-04 14:00 | RAD_ITS ---
STUDY: X-RAY CHEST REASON FOR EXAM: Male, 82 years old. Fever. TECHNIQUE: Single AP portable view of the chest. COMPARISON: Comparison is made with prior study dated 02/12/2022. FINDINGS: A left-sided portacatheter is seen with the tip in the right atrium. EKG electrodes are seen. There now is evidence of bibasilar pulmonary infiltrates slightly worse on the right side. There is blunting of the left cardiac phrenic angle. Normal size heart. Normal mediastinum and luigi. Normal visualized pulmonary arteries. Normal visualized aortic arch and descending thoracic aorta. There are diffuse degenerative changes of the visualized thoracic spine. Normal visualized ribs, clavicles, and shoulders. There is no demonstrated abnormality of the visualized soft tissue structures of the upper abdomen. RAD/Chest 1 View (Portable) IMPRESSION: Bibasilar pulmonary infiltrates worse at the right lung base with blunting of the left costophrenic angle. Electronically Signed: Prasanth Ennis MD at 14:16 EDT ,
[2022-03-04 14:10] LABS: Prothrombin Time (Protime)PT. 13.2 SECONDS (11.7-14.9)
[2022-03-04 14:11] LABS: Partial Thromboplast Time 31.9 Seconds (24.1-36.2)
[2022-03-04 14:15] LABS: ALB/GLOB Ratio 0.9 RATIO (0.9-2.4); AST(SGOT) 20 U/L (15-37); Alanine Aminotransfer ALT/SGPT 15 U/L (16-61); Albumin, Serum 2.1 g/dL (3.2-5.0); Alkaline Phosphatase 67 U/L (45-117); Anion Gap 7 (5-15); BUN 17 mg/dL (7-18); BUN/Creat Ratio 38.7 RATIO (10-20); Calcium,Total 8.2 mg/dL (8.5-10.1); Chloride 96 mmol/L (98-107); Creatinine, Serum 0.44 mg/dL (0.70-1.30); EST Glomerular Filtration Rate 197 mL/min (>60); Est Glom Filt Rate - Afr Amer 238 mL/min (>60); Estimated Creatinine Clearance 56.95 ml/min; Globulin 2.3 g/dL (2.2-4.2); Glucose 212 mg/dL (74-106); Potassium 4.1 mmol/L (3.5-5.1); Protein, Total 4.4 g/dL (6.4-8.2); Sodium Level 133 mmol/L (136-145)
[2022-03-04 14:23] LABS: Lactic Acid 1.1 mmol/L (0.4-1.9)
[2022-03-04 14:43] LABS: Platelet Estimate ADEQUATE (ADEQ); Red Cell Morphology NORM C+C NORMAL (NORM C&C)
--- NOTE | 2022-03-04 14:47 | PCM.HP.STD ---
HPI - General General Date of Admission: 03/04/22 Date of Service: 03/04/22 Chief Complaint: Confusion. HPI Narrative The patient is an 82 y/o M w/ PMHx: Asthma, Chronic anemia/Fe deficiency anemia on IV Fe, HTN, HLD, PAF, Asthma, Diabetes mellitus type II, Esophageal CA s/p surgical intervention/stent placement with ongoing chemotherapy following w/ Dr. Cook, recent 02/12/22 admission for Aspiration PNA treatment who now re-presents to the [facility] ED on 03/04/22 with history of increased fatigue and malaise as well as confusion with recent transition to a newer chemotherapeutic agent 2 days prior to current presentation with specifically a chemotherapeutic pump that accessed through his port and ran until this morning with the pump removed at his visit today with his blood pressure noted to be lower there with 1 L of IV fluids administered and upon arriving back home inability to even get out of the house because of weakness with no recent fever or chills and ongoing significantly decreased oral intake prompting ED evaluation. In regard to his confusion specifically she noted that some of the comments and statements he made earlier in the day were off and not at his baseline. Of note patient at recent discharge was transitioned to room air and was 92 to 94% on room air at that time on 02/14/2022. Work-up in the ED included T1 100.3, heart rate initially 120 with increased up to 146, respiratory rate 14 with increase up to 32, initially 86% on room air with improvement to 95% on 3 L nasal cannula, CBC with WC 3.9, hemoglobin 10, MCV 86.3, platelet 179 with lymphopenia, coags unremarkable, CMP with sodium 133, chloride 96, BUN/creatinine 17/0.44, glucose 212, lactic acid 1.1, hepatic profile not marked appearing, chest x-ray with bibasilar pulmonary infiltrates worse on the right lung base with blunting of the left costophrenic angle, urinalysis/urine culture pending per ED, blood culture x2 pending per ED, rapid COVID antigen and influenza negative. In the ED patient ministered normal saline bolus, Tylenol 1000 mg p.o. x1 as well as Rocephin and Flagyl for concern for recurrent aspiration pneumonia. [facility] Medical History Aspiration pneumonia Asthma Chronic anemia Diabetes mellitus, type 2 Esophageal carcinoma HLD (hyperlipidemia) HTN (hypertension) Iron deficiency anemia PAF (paroxysmal atrial fibrillation) Home Medications aspirin 81 mg tablet,delayed release 81 mg PO QHS HEALTH MAINTENANCE 11/08/16 [History Last Taken 03/03/22] cholecalciferol (vitamin D3) 50 mcg (2,000 unit) capsule (Vitamin D3) 2,000 unit PO DAILY SUPPLEMENT 11/08/16 [History Last Taken 1 Month Ago ~02/01/22] simvastatin 40 mg tablet 40 mg PO DINNER CHOLESTEROL 11/08/16 [History Last Taken 03/03/22] ofloxacin 0.3 % eye drops 1 drp EACH EYE Q EYE HEALTH 02/12/22 [History Last Taken 03/02/22] acetaminophen 650 mg tablet,extended release 1,300 mg PO Q8H pain 03/04/22 [History Last Taken 03/04/22 07:30] metoprolol tartrate 50 mg tablet 50 mg PO BID heart 03/04/22 [History Last Taken 03/04/22] pioglitazone 15 mg-metformin 500 mg tablet 1 tab PO BID dm 03/04/22 [History Last Taken 03/03/22] Allergy/AdvReac Type Severity Reaction Status Date / Time albuterol Allergy Other Verified 03/04/22 13:01 amoxicillin Allergy Other Verified 03/04/22 13:01 levofloxacin [From Levaquin] Allergy Other Verified 03/04/22 13:01 moxifloxacin [From Avelox] Allergy Other Verified 03/04/22 13:01 sulfamethoxazole Allergy Rash Verified 03/04/22 13:01 [From Bactrim] trimethoprim [From Bactrim] Allergy Rash Verified 03/04/22 13:01 Family History Father Hypertension Diabetes Heart disease CAD (coronary artery disease) Sister Hypertension Diabetes Mother Hypertension Surgical History H/O sinus surgery History of esophageal surgery Status post myringotomy with tube placement of both ears Social History household members: spouse Smoking Status: Never smoker alcohol intake: current alcohol intake frequency: a few times a month substance use type: does not use ROS ROS Narrative Admission Review of Systems: CONSTITUTIONAL: No weight loss, + fever, chills, weakness or fatigue. HEENT: Eyes: No visual loss, blurred vision, double vision or yellow sclerae. Ears, Nose, Throat: No hearing loss, sneezing, congestion, runny nose or sore throat. SKIN: No rash or itching, lesions, wounds. CARDIOVASCULAR: No chest pain, chest pressure or chest discomfort, palpitations, edema, orthopnea, syncopal events. RESPIRATORY: + mild cough, No shortness of breath complaint, no marked, sputum, wheezing, hemoptysis. GASTROINTESTINAL: + anorexia, No nausea, vomiting or diarrhea, abdominal pain, melena, BRBPR. GENITOURINARY: No dysuria, frequency, urgency or retention. NEUROLOGICAL: + Increased confusion. No headache, dizziness, syncope, paralysis, ataxia, numbness or tingling in the extremities, focal weakness, change in bowel or bladder control, seizure. MUSCULOSKELETAL: + muscle, back pain, joint pain or stiffness. HEMATOLOGIC: + anemia, bleeding or bruising. LYMPHATICS: No enlarged nodes. No history of splenectomy. PSYCHIATRIC: + history of depression or anxiety. ENDOCRINOLOGIC: No reports of sweating, cold or heat intolerance. No polyuria or polydipsia. ALLERGIES: No history of asthma, hives, eczema or rhinitis. Vital Signs Vital Signs Vital Signs: 03/04/22 12:57 03/04/22 13:22 03/04/22 13:23 Temperature 100.3 F H Temperature Source Temporal Pulse Rate 120 H 146 H Respiratory Rate 14 32 H Respiratory Effort Normal Non-Labored Respiratory Pattern Normal Blood Pressure 118/61 116/69 Blood Pressure Mean 80 84 Pulse Ox 86 95 Oxygen Delivery Method Room Air Nasal Cannula Oxygen Flow Rate (L/min) 3 Weight Weight: 160 lb Body Mass Index (BMI) 23.6 Physical Exam Narrative Physical Examination: General: Awake, alert, oriented to self and place, confused and less oriented than prior baseline, remains cooperative, seated upright in the ED bed, fatigued, ill appearing. Skin: Normal color, normal turgor, no icterus, no cyanosis except for various staged ecchymoses. HEENT: AT/NC, EOMI, PERRLA, mildly dry MM, no carotid bruits or JVD noted. Lungs: Notably diminished, > bases, R>L, poor effort but no evidence of distress, no rales, ronchi or wheezing. Heart: Tachycardic with irregular rhythm; no gallop, rub audible. Abdomen: Soft, NTTP, ND, distant normal BS, no HSM. Extremities: No cyanosis, no clubbing, pedal to distal smith 1+ edema. Neurological: Patient awake, alert, oriented as noted, cognitive function not baseline intact; pupils equally reactive to light and accommodation, cranial nerves II-XII grossly normal, moving all 4 extremities, no focal deficits, strength moderately to severely globally decreased secondary to acute presentation. Psychiatric: Affect appears fatigued, ill appearing, no acute evidence of depressive or anxiety feelings. Results Lab / Micro Data Result Diagrams: 03/04/22 13:45 03/04/22 13:45 Labs: Laboratory Results - last 24 hr 03/04/22 13:45: WBC 3.9 L, RBC 3.71 L, Hgb 10.0 L, Hct 32.0 L, MCV 86.3, MCH 27.0, MCHC 31.3 L, RDW Std Deviation 71.1 H, RDW Coeff of Rey 22.8 H, Plt Count 179, MPV 9.0, Immature Gran % (Auto) 0.500, Neut % (Auto) 86.3 H, Lymph % (Auto) 9.6 L, Lawrence % (Auto) 3.6, Eos % (Auto) 0.0, Baso % (Auto) 0.0, Absolute Neuts (auto) 3.3, Absolute Lymphs (auto) 0.37 L, Nucleated RBC % 0, Diff Path Review August, Platelet Estimate ADEQUATE, RBC Morphology NORM C+C 03/04/22 13:45: PT 13.2, INR 1.0, APTT 31.9 03/04/22 13:45: Sodium 133 L, Potassium 4.1, Chloride 96 L, Carbon Dioxide 30.0, Anion Gap 7, BUN 17, Creatinine 0.44 L, Estim Creat Clear Calc 56.95, Est GFR (MDRD) Af Amer 238, Est GFR (MDRD) Non-Af 197, BUN/Creatinine Ratio 38.7 H, Glucose 212 H, Calcium 8.2 L, Total Bilirubin 0.30, AST 20, ALT 15 L, Alkaline Phosphatase 67, Total Protein 4.4 L, Albumin 2.1 L, Globulin 2.3, Albumin/Globulin Ratio 0.9 03/04/22 13:45: Lactic Acid 1.1 Micro: Microbiology 03/04/22 13:45 Nasal Secretion SARS-CoV-2 & FLU Antigen (Rapid) - Final Radiology Impression Chest X-Ray 03/04/22 14:00 IMPRESSION: Bibasilar pulmonary infiltrates worse at the right lung base with blunting of the left costophrenic angle. Electronically Signed: Prasanth Ennis MD at 14:16 EDT , Assessment & Plan Assessment/Plan (1) Aspiration pneumonia: PLAN: Plan The patient is an 82 y/o M w/ PMHx: Asthma, Chronic anemia/Fe deficiency anemia on IV Fe, HTN, HLD, PAF, Asthma, Diabetes mellitus type II, Esophageal CA s/p surgical intervention/stent placement with ongoing chemotherapy following w/ Dr. Cook, recent 02/12/22 admission for Aspiration PNA treatment who now re-presents to the [facility] ED on 03/04/22 with history of increased fatigue and malaise as well as confusion with recent transition to a newer chemotherapeutic agent 2 days prior to current presentation with specifically a chemotherapeutic pump that accessed through his port and ran until this morning with the pump removed at his visit today with his blood pressure noted to be lower there with 1 L of IV fluids administered and upon arriving back home inability to even get out of the house because of weakness with no recent fever or chills and ongoing significantly decreased oral intake prompting ED evaluation. #1. Acute Hypoxia secondary to Suspected Recurrent Aspiration Pneumonia, Possible GN/GP Organisms w/ Hx recent aspiration PNA admission: Will admit to PCU, chepetian on telemetry given #2, continue judicious hydration, maintain on IV flagyl and IV rocephin given allergies as well as IV vanc given recent prolonged admission history w/ MRSA screen pending with de-escalation of abx therapy as able, maintain on oxygen with wean as tolerated to room air, HOB, IS parameters w/ pending sputum cultures,full respiratory panel and urine antigens. Will maintain NPO status until speech re-evaluation expect sip water with medications. Fall and aspiration precautions. Bld cx x 2 obtained in the ED. PT/OT/ST consulted and pending as well as CM. Patient has had recent CT, most recently 02/12/22 presentation of note. #2. Paroxsymal atrial fibrillation with RVR: Likely secondary to acute infectious presentation, EKG in ED w/ atrial fibrillation w/ RVR. Will continue IVFs, recently transitioned to metoprolol from sotalol because of his chemotherapy agents, will attempt additional dose x 1 now if BP appropriate. If ongoing despite IVFs may require consideration amiodarone in the interim. Will maintain on telemetry, obtain cardiac enzyme serial set to be cautious, no recent echo noted thus will request, will obtain TSH and magnesium levels. Will maintain on therapeutic lovenox. #3. Esophageal cancer: Following with Dr. Cook, s/p prior port placement, recently transitioned to new chemotherapeutic agent, magnesium and phosphorus levels requested. #4. Chronic anemia/iron deficiency anemia: Admission Hgb 10, baseline Hgb more recently 9-10, on IV Fe supplementation outpatient, continue to trend. #5. Chronic asthma: As noted above will place on ATC budesonide therapy especially given as noted atrial fibrillation with RVR presentation, encourage head of bed and I-S. #6. Hypertension: Continue home regimen including metoprolol (recent change from sotalol), losartan with hold parameters as needed given low normal BP upon presentation and reportedly low BP at outside facility, PRN hydralazine. #7. Hyperlipidemia: We will continue patient on statin therapy. #8. Diabetes mellitus type II: Hold oral home regimen, will maintain NPO until speech evaluation, maintain on q 6 hour accu checks w/ ISS. #9. Severe Protein-Calorie malnutrition: Notable weight loss, muscle loss following recent esophageal CA diagnosis, nutrition consulted for supplementation recommendations. #10. DVT prophylaxis: SCDs, Lovenox as noted above therapeutic. #11. CODE status: Patient HCPOA and living will are not in place which was reviewed also during prior admission. Given his notable medical history and poor prognosis if he were to code, re-discussed CODE status at length including difference between FULL code, DNR-CCA and DNR-CC status. Following discussions about the differences in these status, requested continued Full Code status. Advanced Care Planning Face to Face Time: 16 minutes. Charges/Coding Visit Charges Inpatient E&M: 24321 Init Hosp L3 Procedures Hospitalists Procedures: 98125 Advncd Care Plan 30 Min
[2022-03-04 14:52] LABS: Color, Urine Yellow (Yellow); Glucose, Dipstick Normal (Normal); Leukocyte Esterase-Dipstick 25 /ul (Negative); Nitrite-Dipstick Negative (Negative); Occult Blood-Urine 10 /ul (Negative); Protein-Dipstick 30 mg/dl (Negative); Specific Gravity, Urine 1.025 (1.002-1.030); Urine Bilirubin Dipstick 3 mg/dL (Negative); Urine Clarity Clear (Clear); Urine Urobilinogen Normal (Normal)
[2022-03-04 14:57] LABS: Ketone-Dipstick 150 mg/dl (Negative)
[2022-03-04 14:58] LABS: Red Blood Cells-Urine 0-5 SEEN /hpf (0-5); Squamous Epithelial Cells - UA 0-5 SEEN /hpf (0-5); White Blood Cells 0-5 SEEN /hpf (0-5)
[2022-03-04 14:59] LABS: Bacteria 1+ /hpf (None Seen); Hyaline Cast 5-10 SEEN /lpf (0-5); Mucous, Urine 1+ /hpf (<or=2+)
--- NOTE | 2022-03-04 14:59 | NURSING ---
PCU WHITE ASPIRATION PNE, AFIB RVR
[2022-03-04 15:18] LABS: Magnesium 1.7 mg/dL (1.6-2.6); Phosphorus 1.8 mg/dL (2.5-4.9)
[2022-03-04] MEDS: Ceftriaxone 1 GM/50 ML BAG IV (15:40)
--- NOTE | 2022-03-04 15:58 | ECHOD_ITS ---
Reason For Study: PAF W/RVR Procedure This was a 2D Doppler, Color Flow transthoracic echocardiogram. Exam performed portable in patient room. Left Ventricle Normal left ventricle. The estimated ejection fraction is 55-60 %. Right Ventricle Normal right ventricle. Normal systolic function. Atria The left atrium is mildly enlarged. Normal right atrium. Mitral Valve There is mild mitral annular calcification. Mild (1+) mitral valve insufficiency. Tricuspid Valve Normal tricuspid valve. Mild tricuspid valve insufficiency. Aortic Valve Moderate diffuse aortic valve calcification. Mild aortic stenosis. Peak aortic valve gradient 14.7 mmHg. Mean aortic valve gradient 8.8 mmHg. MMode/2D Measurements & Calculations LVIDd: 3.8 cm IVSd: 1.00 cm LVOT diam: 2.1 cm LVIDs: 2.8 cm LVPWd: 0.95 cm FS: 25.8 % LVOT area: 3.3 cm2 Ao root diam: 3.5 cm LAV(MOD-bp): 55.5 ml LVAd ap4: 25.3 cm2 LAV(MOD-bp) Indexed: 29.0 ml/m2 LVLd ap4: 7.7 cm LAV(MOD-sp2): 46.8 ml EDV(MOD-sp4): 70.4 ml LAV(MOD-sp4): 58.2 ml EDV(sp4-el): 70.9 ml LVAs ap4: 15.4 cm2 LVLs ap4: 7.1 cm ESV(MOD-sp4): 30.8 ml ESV(sp4-el): 28.2 ml EF(MOD-sp4): 56.3 % EF(sp4-el): 60.2 % LVAd ap2: 23.3 cm2 SV(MOD-sp4): 39.6 ml SV(MOD-sp2): 26.9 ml LVLd ap2: 7.8 cm EDV(MOD-sp2): 57.6 ml EDV(sp2-el): 59.1 ml LVAs ap2: 15.8 cm2 LVLs ap2: 6.7 cm ESV(MOD-sp2): 30.7 ml ESV(sp2-el): 32.0 ml EF(MOD-sp2): 46.7 % SV(sp4-el): 42.7 ml LA A4 area: 21.1 cm2 LA dimension(2D): 4.3 cm RA A4 area: 19.4 cm2 Doppler Measurements & Calculations MV E max beth: 112.7 cm/sec MV V2 max: 106.2 cm/sec Ao V2 max: 190.9 cm/sec MV max P.5 mmHg Ao max P.7 mmHg MV V2 mean: 72.6 cm/sec Ao V2 mean: 139.5 cm/sec MV mean P.4 mmHg Ao mean P.8 mmHg MV V2 VTI: 13.8 cm Ao V2 VTI: 35.6 cm MVA(VTI): 5.2 cm2 ENRRIQUE(I,D): 2.0 cm2 ENRRIQUE(V,D): 1.8 cm2 LV V1 max: 101.4 cm/sec MR max beth: 474.4 cm/sec SV(LVOT): 72.2 ml LV V1 max P.1 mmHg MR max P.0 mmHg LV V1 mean P.3 mmHg LV V1 mean: 71.7 cm/sec LV V1 VTI: 21.6 cm PA V2 max: 90.7 cm/sec TR max beth: 330.5 cm/sec PA V2 mean: 61.5 cm/sec TR max P.7 mmHg ECHO/Echo Complete Interpretation Summary Normal LV systolic function Mils .ENRRIQUE 1.8 cm2 The estimated ejection fraction is 55-60 %. Peak aortic valve gradient 14.7 mmHg. Mean aortic valve gradient 8.8 mmHg. No previous echo to compare Ordering Physician: Kelly Phillips Performed By: Maria E Jang RCS
[2022-03-04 17:13] LABS: Troponin-I HS 33 pg/mL (3.0-78.0)
[2022-03-04] MEDS: metroNIDAZOLE 500 MG/100 ML BAG 100 MG IV ×2 (18:06→21:46)
[2022-03-04] MEDS: Metoprolol Tartrate 25 MG Tablet PO ×2 (18:10→22:52)
[2022-03-04] MEDS: Atorvastatin Calcium 20 MG Tablet PO (18:10)
[2022-03-04 19:00] LABS: Troponin-I HS 28 pg/mL (3.0-78.0)
[2022-03-04] MEDS: Budesonide Respules 0.5 MG/2 ML AMPUL.NEB. INHALATION (19:03)
--- NOTE | 2022-03-04 19:36 | PCM.RX.CS ---
Consult Pharmacy has been consulted to manage selected antiobiotic: Vancomycin Type of Consult: New start Suspected Infection: Pneumonia Labs: Sodium 133 mmol/L (136-145) L 03/04/22 13:45 Potassium 4.1 mmol/L (3.5-5.1) 03/04/22 13:45 Chloride 96 mmol/L (98-107) L 03/04/22 13:45 Carbon Dioxide 30.0 mmol/L (21.0-32.0) 03/04/22 13:45 Anion Gap 7 (5-15) 03/04/22 13:45 BUN 17 mg/dL (7-18) 03/04/22 13:45 Creatinine 0.44 mg/dL (0.70-1.30) L 03/04/22 13:45 Est GFR (MDRD) Af Amer 238 mL/min (>60) 03/04/22 13:45 Est GFR (MDRD) Non-Af 197 mL/min (>60) 03/04/22 13:45 BUN/Creatinine Ratio 38.7 RATIO (10-20) H 03/04/22 13:45 Glucose 212 mg/dL (74-106) H 03/04/22 13:45 Microbiology: Microbiology 03/04/22 14:41 Urine Catheter - Catheter Legionella Antigen - Final 03/04/22 14:41 Urine Catheter - Catheter Streptococcus pneumoniae Antigen (M - Final 03/04/22 13:45 Nasal Secretion SARS-CoV-2 & FLU Antigen (Rapid) - Final Pharmacy Plan for Drug Dosing: NEW START IV VANCOMYCIN Consulting Physician: WHITE Indication: PNEUMONIA Goal Trough: 15-20 MG/DL SrCr: 0.44 (ROUNDED TO 0.8) CrCl: 71.9 ML/MIN Comments: LOADING DOSE OF 2000MG GIVEN 03/04 @ 1918 Vancomycin Dose: WILL START 1000MG Q12H 03/05 @ 0700 AND GET A TROUGH PRIOR TO THE 4TH DOSE PER POLICY. Pending Level: 03/06/22 @ 0630 Pharmacy Service will continue to monitor and adjust dosing as required.
[2022-03-04] MEDS: 0.9% Normal Saline 1,000 ML 100 ML IV (19:49)
[2022-03-04] MEDS: Acetaminophen 325 MG Tablet 650 MG PO (20:03)
[2022-03-04 22:50] LABS: Troponin-I HS 26 pg/mL (3.0-78.0)
[2022-03-04] MEDS: Enoxaparin 80 MG/0.8 ML Syringe 70 MG SC (22:53)
[2022-03-04] MEDS: Aspirin E.C. 81 MG Tablet PO (22:53)
[2022-03-04 23:40] LABS: Bedside Glucose 160 mg/dL (74-106)
[2022-03-05] VITALS (29 sets, daily range): BP systolic 96–118; BP diastolic 51–78; PULSE 88–139; RESP 18–28; TEMP 36.3–36.8; O2SAT 90–98
[2022-03-05] MEDS: Acetaminophen 325 MG Tablet 650 MG PO ×4 (01:00→18:10)
[2022-03-05] MEDS: 0.9% Normal Saline 1,000 ML 100 ML IV ×2 (05:23→15:37)
[2022-03-05] MEDS: metroNIDAZOLE 500 MG/100 ML BAG 100 MG IV ×3 (05:27→21:33)
[2022-03-05] MEDS: Metoprolol Tartrate 5 MG/5 ML Vial 2.5 MG IV (06:17)
[2022-03-05] MEDS: Vancomycin IV 1,000 MG/200 ML BAG 200 MG IV ×2 (06:53→18:11)
[2022-03-05 07:00] LABS: Bedside Glucose 142 mg/dL (74-106)
[2022-03-05 07:52] LABS: Absolute Lymphocyte Count 0.15 X10^3/uL (0.83-4.51); Absolute Neutrophil Count 4.6 X10^3/uL (2.0-7.7); Basophil# 0.01 X10^3/uL; Basophil% 0.2 % (0-1); Eosinophil# 0.01 X10^3/uL; Eosinophils% 0.2 % (0-5); Hematocrit 26.8 % (40-54); Hemoglobin 8.5 g/dL (13.0-16.5); Lymphocyte # 0.15 X10^3/ul (0.83-4.51); Mean Corp Hgb Conc 31.7 g/dL (32-36); Mean Corpuscular Hgb 27.2 pg (27.0-32.0); Mean Corpuscular Volume 85.6 fL (80-94); Mean Platelet Vol. 8.8 fl (6.2-12.0); Monocyte# 0.22 X10^3/uL; Monocyte% 4.3 % (0-10); NRBC Flagged by Analyzer 0 % (0-5); Neutrophil # 4.64 X10^3/uL (2.7-7.7); Neutrophil % 91.7 % (47-70); POSITIVE DIFFERENTIAL YES; POSITIVE MORPHOLOGY YES; Platelet Count 142 K/mm3 (150-450); RBC Distribution Width CV 23.2 % (11.6-14.6); RBC Distribution Width SD 72.3 fl (35.1-43.9); Red Blood Count 3.13 M/mm3 (4.6-6.2); White Blood Count 5.1 K/mm3 (4.4-11.0)
[2022-03-05 07:58] LABS: Differential Indicated SCAN CRITERIA MET
[2022-03-05 08:13] LABS: ALB/GLOB Ratio 0.8 RATIO (0.9-2.4); AST(SGOT) 15 U/L (15-37); Alanine Aminotransfer ALT/SGPT 11 U/L (16-61); Albumin, Serum 1.6 g/dL (3.2-5.0); Alkaline Phosphatase 53 U/L (45-117); Anion Gap 5 (5-15); BUN 12 mg/dL (7-18); BUN/Creat Ratio 43.6 RATIO (10-20); Calcium,Total 7.4 mg/dL (8.5-10.1); Chloride 102 mmol/L (98-107); Creatinine, Serum 0.28 mg/dL (0.70-1.30); EST Glomerular Filtration Rate 337 mL/min (>60); Est Glom Filt Rate - Afr Amer 408 mL/min (>60); Estimated Creatinine Clearance 56.95 ml/min; Globulin 2.1 g/dL (2.2-4.2); Glucose 137 mg/dL (74-106); Potassium 3.4 mmol/L (3.5-5.1); Protein, Total 3.7 g/dL (6.4-8.2); Sodium Level 138 mmol/L (136-145)
[2022-03-05 08:16] LABS: Phosphorus 2.1 mg/dL (2.5-4.9)
[2022-03-05] MEDS: Enoxaparin 80 MG/0.8 ML Syringe 70 MG SC ×2 (09:13→21:34)
[2022-03-05] MEDS: Metoprolol Tartrate 25 MG Tablet PO (09:14)
[2022-03-05] MEDS: 0.9% Saline Lock 10 ML Syringe IV (09:14)
[2022-03-05] MEDS: Ceftriaxone 1 GM/50 ML BAG IV (09:24)
[2022-03-05] MEDS: Potassium Chloride Oral Tablet 20 MEQ 40 MEQ PO (09:24)
[2022-03-05 09:49] LABS: M R Staph aureus DNA By PCR Negative (Negative); Probe Check PASS; Specimen Processing Control PASS
[2022-03-05 11:13] LABS: Differential Comment SCANNED
[2022-03-05 11:14] LABS: Anisocytosis 2+; Macrocytosis 1+; Microcytosis 1+
[2022-03-05] MEDS: Insulin Lispro 100 UNIT/ML INSULN.PEN SC ×2 (11:20→21:33)
[2022-03-05 11:55] LABS: Bedside Glucose 159 mg/dL (74-106)
[2022-03-05] MEDS: Mag Hydrox/Al Hydrox/Simeth 30 ML UDC PO (12:32)
--- NOTE | 2022-03-05 12:56 | PN.HOSP_ITS ---
Subjective Subjective Patient seen and examined. He felt better today and had no active complaints. He had an uneventful night and review of systems otherwise negative. He has remained hemodynamically stable. He is on 2L of oxygen by nasal canula Objective Data Objective Data Vital Signs: Vital Signs Temp Pulse Resp BP Pulse Ox O2 Del Method O2 Flow Rate 97.5 F L 95 18 118/76 97 Nasal Cannula 2 03/05/22 09:00 03/05/22 09:14 03/05/22 09:00 03/05/22 09:14 03/05/22 09:00 03/05/22 09:00 03/05/22 09:00 Oxygen Flow Rate (L/min) 2 Oxygen Delivery Method Nasal Cannula Weight: 168 lb 13.985 oz Body Mass Index (BMI) 24.2 Intake & Output: Intake and Output for Last 24 Hours 03/03/22 03/04/22 03/05/22 23:59 23:59 23:59 Intake Total 2290 / 2290 1563.67 / 1563.67 Output Total 250 / 250 200 / 200 Balance 2040 / 2040 1363.67 / 1363.67 Medical Nutrition Assessment Dietitian: Malnutrition Criteria Met Start: 03/05/22 1 2:03 Freq: Status: Active Protocol: Document 03/05/22 12:06 SULEMAN (Rec: 03/05/22 12:06 SULEMAN [id number]) Nutrition Malnutrition Evidence of Malnutrition Exists Yes Malnutrition (severe): Chronic Evidenced By Suboptimal Energy Intake ( Severe),Weight Loss (Severe), Physical Changes (Moderate) Clinical Problem Chronic Disease or Condition Related Malnutrition Etiology related to esophageal cancer and issues w/ chewing/ swallowing making it difficult to meet est energy / protein needs Signs/Symptoms as evidenced by need for mech altered diet, 13.4% wt loss and consuming <50% of est nutritional needs x 6 mo. Pt has fat/muscle loss per NFPA Status Active Problem Recommendation Dietitian Recommendations/Changes Will order 120 ml ensure plus high protein 4x/day w/ medpass . Will continue regular diet - consistency per TRAVELING FREIGHT AGENT - d/t signs and symptoms of malnutrition. Will provide fortified foods w / all meals and ensure pudding or magic cup w/ lunch and dinner. Rec consider appetite stimulant. May need to consider enteral nutrition support if continued poor po intake and / or wt loss to help prevent additional decline in pt nutrition status - if in accordance w/ pt/family wishes Lab / Micro Data Result Diagrams: 03/05/22 06:12 03/05/22 06:12 Labs: Laboratory Results - last 24 hr 03/04/22 13:45: WBC 3.9 L, RBC 3.71 L, Hgb 10.0 L, Hct 32.0 L, MCV 86.3, MCH 27.0, MCHC 31.3 L, RDW Std Deviation 71.1 H, RDW Coeff of Rey 22.8 H, Plt Count 179, MPV 9.0, Immature Gran % (Auto) 0.500, Neut % (Auto) 86.3 H, Lymph % (Auto) 9.6 L, [place] % (Auto) 3.6, Eos % (Auto) 0.0, Baso % (Auto) 0.0, Absolute Neuts (auto) 3.3, Absolute Lymphs (auto) 0.37 L, Nucleated RBC % 0, Diff Path Review August, Platelet Estimate ADEQUATE, RBC Morphology NORM C+C 03/04/22 13:45: PT 13.2, INR 1.0, APTT 31.9 03/04/22 13:45: Sodium 133 L, Potassium 4.1, Chloride 96 L, Carbon Dioxide 30.0, Anion Gap 7, BUN 17, Creatinine 0.44 L, Estim Creat Clear Calc 56.95, Est GFR (MDRD) Af Amer 238, Est GFR (MDRD) Non-Af 197, BUN/Creatinine Ratio 38.7 H, Glucose 212 H, Calcium 8.2 L, Total Bilirubin 0.30, AST 20, ALT 15 L, Alkaline Phosphatase 67, Total Protein 4.4 L, Albumin 2.1 L, Globulin 2.3, Albumin/Globulin Ratio 0.9 03/04/22 13:45: Lactic Acid 1.1 03/04/22 13:45: Phosphorus 1.8 L, Magnesium 1.7 03/04/22 14:41: Urine Color Yellow, Urine Clarity Clear, Urine pH 5.0, Ur Specific Wolf 1.025, Urine Protein 30 H, Urine Glucose (UA) Normal, Urine Ketones 150 A*, Urine Occult Blood 10 H, Urine Nitrite Negative, Urine Bilirubin 3 H, Urine Urobilinogen Normal, Ur Leukocyte Esterase 25 H, Urine RBC 0-5 SEEN, Urine WBC 0-5 SEEN, Ur Squamous Epith Cells 0-5 SEEN, Urine Bacteria 1+, Hyaline Casts 5-10 SEEN, Urine Mucus 1+ 03/04/22 16:14: Troponin I High Sens 33 03/04/22 18:00: Troponin I High Sens 28 03/04/22 21:52: POC Glucose 160 H 03/04/22 22:10: Troponin I High Sens 26 03/05/22 05:20: POC Glucose 142 H 03/05/22 05:25: MRSA (PCR) Negative 03/05/22 06:12: WBC 5.1, RBC 3.13 L, Hgb 8.5 L, Hct 26.8 L, MCV 85.6, MCH 27.2, MCHC 31.7 L, RDW Std Deviation 72.3 H, RDW Coeff of Rey 23.2 H, Plt Count 142 L, MPV 8.8, Immature Gran % (Auto) 0.600, Neut % (Auto) 91.7 H, Lymph % (Auto) 3.0 L, [place] % (Auto) 4.3, Eos % (Auto) 0.2, Baso % (Auto) 0.2, Absolute Neuts (auto) 4.6, Absolute Lymphs (auto) 0.15 L, Nucleated RBC % 0, Differential Comment SCANNED, Anisocytosis 2+, Microcytosis 1+, Macrocytosis 1+ 03/05/22 06:12: Sodium 138, Potassium 3.4 L, Chloride 102, Carbon Dioxide 31.0, Anion Gap 5, BUN 12, Creatinine 0.28 L, Estim Creat Clear Calc 56.95, Est GFR (MDRD) Af Amer 408, Est GFR (MDRD) Non-Af 337, BUN/Creatinine Ratio 43.6 H, Glucose 137 H, Calcium 7.4 L, Total Bilirubin 0.20, AST 15, ALT 11 L, Alkaline Phosphatase 53, Total Protein 3.7 L, Albumin 1.6 L, Globulin 2.1 L, Albumin/Globulin Ratio 0.8 L, TSH 1.30 03/05/22 06:12: Phosphorus 2.1 L 03/05/22 11:17: POC Glucose 159 H Micro: Microbiology 03/04/22 14:41 Urine, Catheterized Urine Culture - Preliminary Culture exhibits no growth. 03/04/22 15:18 Mucosa - Nose Respiratory Panel (PCR) - Final Rhinovirus 03/04/22 14:41 Urine Catheter - Catheter Legionella Antigen - Final 03/04/22 14:41 Urine Catheter - Catheter Streptococcus pneumoniae Antigen (M - Final 03/04/22 13:45 Nasal Secretion SARS-CoV-2 & FLU Antigen (Rapid) - Final Radiography Diagnostic Testing: Radiology Impression Chest X-Ray 03/04/22 14:00 IMPRESSION: Bibasilar pulmonary infiltrates worse at the right lung base with blunting of the left costophrenic angle. Electronically Signed: Prasanth Ennis MD at 14:16 EDT , Echocardiogram 03/04/22 15:58 Interpretation Summary Normal LV systolic function Mils .ENRRIQUE 1.8 cm2 The estimated ejection fraction is 55-60 %. Peak aortic valve gradient 14.7 mmHg. Mean aortic valve gradient 8.8 mmHg. No previous echo to compare Ordering Physician: Kelly Phillips Performed By: Maria E Jang RCS Physical Exam Const alert, oriented x3 and no apparent distress HEENT head/scalp atraumatic, moist oral mucous membranes and oropharynx normal Head and Scalp: normocephalic Mouth: oral and palatal mucosa normal Eyes PERRL, EOMs intact bilaterally and conjunctivae normal Neck no lymphadenopathy and supple Resp Resp Narrative: mildly diminished breath sounds bibasally, no wheezes or crackles. On 2L of oxygen by nasal canula Cardio regular rate, regular rhythm, S1 normal heart sound, S2 normal heart sound and no murmurs GI normal to inspection, nondistended, normoactive bowel sounds, soft to palpation, non-tender and non-distended Extremity normal to inspection, full ROM and no clubbing, cyanosis or edema Neuro oriented x3, CN's II-XII intact bilaterally, moves all extremities and no focal motor deficits Sensorium / Orientation: awake and alert Motor Exam: strength 5/5 throughout Psych affect normal Assessment & Plan Assessment/Plan (1) Aspiration pneumonia: (2) Atrial fibrillation with RVR: PLAN: Plan #Recurrent aspiration pneumonia * Feels better today. Feels his breathing is improving. On 2 L of oxygen by nasal cannula. * On IV vancomycin as well as Flagyl and Rocephin. * Sputum cultures pending. Aspiration precautions. * Breathing treatments bronchodilators. Titrate oxygen to maintain saturation above 90%. #Paroxysmal A. fib * Was in RVR on admission but this is now resolved. On metoprolol. * Troponins were not elevated. * IV Lopressor as needed * On therapeutic Lovenox * #History of esophageal cancer * Follows with Dr. Cook. Was recently started on a new chemotherapy agent. * Has port in place. #Asthma: Not in exacerbation. Breathing treatments with bronchodilators. #Hypertension: On losartan and metoprolol #Severe protein calorie malnutrition: Likely due to esophageal cancer. Nutrition on board. #DVT prophylaxis: Lovenox therapeutic on account of A. fib Charges/Coding Visit Charges Inpatient E&M: 10127 Subs Hosp L2
[2022-03-05] MEDS: Ensure Plus High Protein 120 ML LIQUID PO (13:23)
[2022-03-05] MEDS: Metoprolol Tartrate 5 MG/5 ML Vial IV (14:06)
[2022-03-05] MEDS: 0.9% Normal Saline 1,000 ML 999 ML IV (15:50)
[2022-03-05] MEDS: Atorvastatin Calcium 20 MG Tablet PO (16:41)
[2022-03-05] MEDS: Calcium Carbonate 500 MG Tablet PO (16:41)
[2022-03-05 17:05] LABS: Bedside Glucose 150 mg/dL (74-106)
[2022-03-05] MEDS: dilTIAZem 25 MG/5 ML Vial IV BOLUS (17:35)
--- NOTE | 2022-03-05 18:00 | CASEMGMT ---
FABIAN LLOYD readmission note: Prior admission: Admitted from home on 02/12/22 w/Aspiration PNA and hypoxia. Pt did not qualify for home O2 @ discharge. Discharged home on 02/14/22 w/script for OP Speech therapy. Current admission: Pt readmitted 03/04/22 from home w/dx of hypoxia, aspiration PNA, and A-fib w/RVR. FABIAN LLOYD to room to meet w/pt and dtr, Darling, who is at bedside. Pt states he did not get started w/OP speech therapy, and initially stated he did not remember getting a script/order for it last admission. Upon further discussion, pt was able to recall speech therapy working w/him during last admission and that he was to f/u w/OP ST. Dtr stated that a lot of events took place after last admit, stating shortly after discharge, pt had port placed, and then shortly after that he was admitted to [facility] and that things have been so busy. Pt stated he has been taking his medications as prescribed and he was able to make it to f/u appt w/Dr Moeller on 02/18. FABIAN LLOYD discussed discharge planning w/pt and dtr. They both would like pt to discharge home and are interested in HHC. Discussed homebound requirements and dtr states pt is definitely homebound at this time. A list of HHC providers including quality and resource use data and consistent with the patient?s preferred geographic region, medical needs, and insurance network were provided from the [employer] Guide. Their first choice is [facility]. Dtr states they would like an aide, in addition to SN and therapies. Order placed. Call placed to [facility] and VM left re: referral. Dtr and pt made aware HHC intake not open on weekends and referral would be reviewed on Monday re: if able to accept. They voice understanding. CM to f/u on Monday. Pt does not have home O2. Pt and dtr provided w/list of local DME companies and made aware [employer] is affiliated w/[facility]. Their first choice is [employer], should he qualify for home O2 @ d/c. Discussed process of home oxygen set-up. Questions answered. Pt and dtr deny having further discharge planning needs or questions at this time. Jimmy STARRN FABIAN LLOYD
[2022-03-05] MEDS: Amiodarone 360 MG in Dextrose 5% Viaflo Bag 192.8 ML 33.3 MG CONT INF (19:54)
[2022-03-05] MEDS: Budesonide Respules 0.5 MG/2 ML AMPUL.NEB. INHALATION (19:55)
[2022-03-05] MEDS: Menthol/Lanolin/Calamine/Znox 113 GM Tube 1 APPLIC TOPICAL (21:32)
[2022-03-05] MEDS: Aspirin E.C. 81 MG Tablet PO (21:32)
[2022-03-05] MEDS: Nystatin Powder 15gm Bottle 1 APPLIC TOPICAL (21:34)
[2022-03-05 22:00] LABS: Bedside Glucose 171 mg/dL (74-106)
[2022-03-06] VITALS (28 sets, daily range): BP systolic 93–132; BP diastolic 54–101; PULSE 80–148; RESP 18–29; TEMP 36.4–37; O2SAT 92–100
[2022-03-06] MEDS: 0.9% Normal Saline 1,000 ML 100 ML IV ×2 (00:24→12:55)
[2022-03-06] MEDS: guaiFENesin 10 ML UDC (200MG/10ML) 20 ML PO ×2 (01:05→21:21)
--- NOTE | 2022-03-06 01:24 | PCM.HOSP.N ---
Hospitalist Note Called for's persistent tachycardia having A. fib with RVR heart rates have been anywhere from 90-124 but predominantly above 105. Patient on amiodarone drip. Blood pressures currently 99/75. We will give digoxin 250 mcg x 1 dose.
[2022-03-06] MEDS: Amiodarone 360 MG in Dextrose 5% Viaflo Bag 192.8 ML 16.7 MG CONT INF ×2 (01:37→12:55)
[2022-03-06] MEDS: Digoxin 250 MCG/ML Ampul IV (02:01)
[2022-03-06] MEDS: 0.9% Saline Lock 10 ML Syringe IV ×2 (02:02→05:26)
[2022-03-06] MEDS: metroNIDAZOLE 500 MG/100 ML BAG 100 MG IV ×3 (05:26→21:35)
[2022-03-06] MEDS: ChlorproMAZINE 25 MG Tablet PO (05:30)
[2022-03-06 05:43] LABS: Absolute Neutrophil Count 3.1 X10^3/uL (2.0-7.7); Eosinophil# 0.05 X10^3/uL; Eosinophils% 1.4 % (0-5); Hematocrit 31.5 % (40-54); Hemoglobin 9.5 g/dL (13.0-16.5); Lymphocyte % 8.2 % (19-41); Mean Corp Hgb Conc 30.2 g/dL (32-36); Mean Corpuscular Hgb 26.6 pg (27.0-32.0); Mean Corpuscular Volume 88.2 fL (80-94); Mean Platelet Vol. 8.9 fl (6.2-12.0); Monocyte# 0.16 X10^3/uL; Monocyte% 4.4 % (0-10); NRBC Flagged by Analyzer 0 % (0-5); Neutrophil # 3.11 X10^3/uL (2.7-7.7); Neutrophil % 85.2 % (47-70); POSITIVE DIFFERENTIAL YES; POSITIVE MORPHOLOGY YES; Platelet Count 163 K/mm3 (150-450); RBC Distribution Width CV 23.1 % (11.6-14.6); RBC Distribution Width SD 74.3 fl (35.1-43.9); Red Blood Count 3.57 M/mm3 (4.6-6.2); White Blood Count 3.7 K/mm3 (4.4-11.0)
[2022-03-06 05:56] LABS: Differential Indicated SCAN CRITERIA MET
[2022-03-06] MEDS: Acetaminophen 325 MG Tablet 650 MG PO ×5 (06:01→19:01)
[2022-03-06 06:02] LABS: Anion Gap 4 (5-15); BUN 10 mg/dL (7-18); Calcium,Total 7.5 mg/dL (8.5-10.1); Chloride 103 mmol/L (98-107); EST Glomerular Filtration Rate 302 mL/min (>60); Est Glom Filt Rate - Afr Amer 365 mL/min (>60); Estimated Creatinine Clearance 56.95 ml/min; Glucose 142 mg/dL (74-106); Potassium 3.7 mmol/L (3.5-5.1); Sodium Level 137 mmol/L (136-145); Vancomycin, Trough Level 10.7 ug/mL (5.0-15.0)
[2022-03-06 06:17] LABS: Anisocytosis 2+
--- NOTE | 2022-03-06 06:49 | PCM.RX.CS ---
Consult Pharmacy has been consulted to manage selected antiobiotic: Vancomycin Type of Consult: Follow-up Labs: Sodium 137 mmol/L (136-145) 03/06/22 05:30 Potassium 3.7 mmol/L (3.5-5.1) 03/06/22 05:30 Chloride 103 mmol/L (98-107) 03/06/22 05:30 Carbon Dioxide 30.0 mmol/L (21.0-32.0) 03/06/22 05:30 Anion Gap 4 (5-15) L 03/06/22 05:30 BUN 10 mg/dL (7-18) 03/06/22 05:30 Creatinine 0.30 mg/dL (0.70-1.30) L 03/06/22 05:30 Est GFR (MDRD) Af Amer 365 mL/min (>60) 03/06/22 05:30 Est GFR (MDRD) Non-Af 302 mL/min (>60) 03/06/22 05:30 BUN/Creatinine Ratio 33.0 RATIO (10-20) H 03/06/22 05:30 Glucose 142 mg/dL (74-106) H 03/06/22 05:30 Vancomycin Trough 10.7 ug/mL (5.0-15.0) 03/06/22 05:30 Microbiology: Microbiology 03/04/22 14:41 Urine, Catheterized Urine Culture - Preliminary Culture exhibits no growth. 03/04/22 15:18 Mucosa - Nose Respiratory Panel (PCR) - Final Rhinovirus 03/04/22 14:41 Urine Catheter - Catheter Legionella Antigen - Final 03/04/22 14:41 Urine Catheter - Catheter Streptococcus pneumoniae Antigen (M - Final 03/04/22 13:45 Nasal Secretion SARS-CoV-2 & FLU Antigen (Rapid) - Final Goal Trough: 15-20 mcg/mL Pharmacy Plan for Drug Dosing: Pharmacy Service will continue to monitor and adjust dosing as required. TROUGH 10.7@ 11.5 HRS. INCREASE TO 1250 Q12H AND FOLLOW UP TROUGH PRIOR TO 4TH DOSE Follow-Up Labs: Trough Vancomycin Labs to be done on [date and time ordered]: 03/08 @ 4213
[2022-03-06] MEDS: Budesonide Respules 0.5 MG/2 ML AMPUL.NEB. INHALATION (07:16)
[2022-03-06] MEDS: Metoprolol Tartrate 50 MG Tablet PO ×2 (07:51→21:37)
[2022-03-06] MEDS: Menthol/Lanolin/Calamine/Znox 113 GM Tube 1 APPLIC TOPICAL ×2 (08:11→21:38)
[2022-03-06] MEDS: Enoxaparin 80 MG/0.8 ML Syringe 70 MG SC (08:11)
[2022-03-06] MEDS: Nystatin Powder 15gm Bottle 1 APPLIC TOPICAL ×2 (08:11→21:38)
[2022-03-06] MEDS: Glucerna Shake 120 ML LIQUID PO ×2 (08:13→11:57)
[2022-03-06 08:15] LABS: Bedside Glucose 139 mg/dL (74-106)
[2022-03-06] MEDS: Ceftriaxone 1 GM/50 ML BAG IV (10:17)
--- NOTE | 2022-03-06 11:29 | PN.HOSP_ITS ---
Subjective Subjective Patient seen and examined. He has no active complaints this morning. He still remains tachycardic. He was started on amiodarone drip yesterday. Cardiology was also consulted on account of patient being in A. fib with RVR. Objective Data Objective Data Vital Signs: Vital Signs Temp Pulse Resp BP Pulse Ox O2 Del Method O2 Flow Rate 97.7 F L 146 H 20 H 94/67 94 Nasal Cannula 2 03/06/22 05:22 03/06/22 07:51 03/06/22 07:16 03/06/22 07:00 03/06/22 07:16 03/06/22 07:16 03/06/22 07:16 Oxygen Flow Rate (L/min) 2 Oxygen Delivery Method Nasal Cannula Weight: 167 lb 15.876 oz Body Mass Index (BMI) 24.2 Intake & Output: Intake and Output for Last 24 Hours 03/04/22 03/05/22 03/06/22 23:59 23:59 22:59 Intake Total 2290 / 2290 5380.24 / 5413.54 1708.18 / 1708.18 Output Total 250 / 250 200 / 200 Balance 2040 / 2040 5180.24 / 5213.54 1708.18 / 1708.18 Medical Nutrition Assessment Dietitian: Malnutrition Criteria Met Start: 03/05/22 12:03 Freq: Status: Active Protocol: Document 03/05/22 12:06 SULEMAN (Rec: 03/05/22 12:06 SULEMAN [id number]) Nutrition Malnutrition Evidence of Malnutrition Exists Yes Malnutrition (severe): Chronic Evidenced By Suboptimal Energy Intake ( Severe),Weight Loss (Severe), Physical Changes (Moderate) Clinical Problem Chronic Disease or Condition Related Malnutrition Etiology related to esophageal cancer and issues w/ chewing/ swallowing making it difficult to meet est energy / protein needs Signs/Symptoms as evidenced by need for mech altered diet, 13.4% wt loss and consuming <50% of est nutritional needs x 6 mo. Pt has fat/muscle loss per NFPA Status Active Problem Recommendation Dietitian Recommendations/Changes Will order 120 ml ensure plus high protein 4x/day w/ medpass . Will continue regular diet - consistency per SECURITY TECH - d/t signs and symptoms of malnutrition. Will provide fortified foods w / all meals and ensure pudding or magic cup w/ lunch and dinner. Rec consider appetite stimulant. May need to consider enteral nutrition support if continued poor po intake and / or wt loss to help prevent additional decline in pt nutrition status - if in accordance w/ pt/family wishes Lab / Micro Data Result Diagrams: 03/06/22 05:30 03/06/22 05:30 Labs: Laboratory Results - last 24 hr 03/05/22 16:39: POC Glucose 150 H 03/05/22 21:30: POC Glucose 171 H 03/06/22 05:30: Vancomycin Trough 10.7 03/06/22 05:30: WBC 3.7 L, RBC 3.57 L, Hgb 9.5 L, Hct 31.5 L, MCV 88.2, MCH 26.6 L, MCHC 30.2 L, RDW Std Deviation 74.3 H, RDW Coeff of Rey 23.1 H, Plt Count 163, MPV 8.9, Immature Gran % (Auto) 0.800, Neut % (Auto) 85.2 H, Lymph % (Auto) 8.2 L, [place] % (Auto) 4.4, Eos % (Auto) 1.4, Baso % (Auto) 0.0, Absolute Neuts (auto) 3.1, Absolute Lymphs (auto) 0.30 L, Nucleated RBC % 0, Diff Path Review May foll, Anisocytosis 2+ 03/06/22 05:30: Sodium 137, Potassium 3.7, Chloride 103, Carbon Dioxide 30.0, Anion Gap 4 L, BUN 10, Creatinine 0.30 L, Estim Creat Clear Calc 56.95, Est GFR (MDRD) Af Amer 365, Est GFR (MDRD) Non-Af 302, BUN/Creatinine Ratio 33.0 H, Glucose 142 H, Calcium 7.5 L 03/06/22 07:50: POC Glucose 139 H Micro: Microbiology 03/04/22 13:40 Blood Culture (Wb) - Anticubital Right Blood Culture - Preliminary No growth in 48 hours. 03/04/22 13:45 Blood Culture (Wb) - Port Blood Culture - Preliminary No growth in 48 hours. 03/04/22 14:41 Urine, Catheterized Urine Culture - Preliminary Culture exhibits no growth. 03/04/22 15:18 Mucosa - Nose Respiratory Panel (PCR) - Final Rhinovirus 03/04/22 14:41 Urine Catheter - Catheter Legionella Antigen - Final 03/04/22 14:41 Urine Catheter - Catheter Streptococcus pneumoniae Antigen (M - Final 03/04/22 13:45 Nasal Secretion SARS-CoV-2 & FLU Antigen (Rapid) - Final Physical Exam Const alert, oriented x3 and no apparent distress Constitutional Narrative: frail HEENT head/scalp atraumatic, moist oral mucous membranes and oropharynx normal Head and Scalp: normocephalic Mouth: oral and palatal mucosa normal Eyes PERRL, EOMs intact bilaterally and conjunctivae normal Neck no lymphadenopathy and supple Resp Resp Narrative: mildly diminished breath sounds bibasally, no wheezes or crackles. On 2L of oxygen by nasal canula Cardio S1 normal heart sound, S2 normal heart sound and no murmurs Cardio Narrative: tachycardic, afib with RVR GI normal to inspection, nondistended, normoactive bowel sounds, soft to palpation, non-tender and non-distended Extremity normal to inspection, full ROM and no clubbing, cyanosis or edema Neuro oriented x3, CN's II-XII intact bilaterally, moves all extremities and no focal motor deficits Sensorium / Orientation: awake and alert Motor Exam: strength 5/5 throughout Psych affect normal Assessment & Plan Assessment/Plan (1) Aspiration pneumonia: (2) Atrial fibrillation with RVR: PLAN: Plan #Recurrent aspiration pneumonia * Feels better today. Feels his breathing is improving. On 2 L of oxygen by nasal cannula. * On IV vancomycin as well as Flagyl and Rocephin. * Sputum cultures pending. Aspiration precautions. * Breathing treatments bronchodilators. Titrate oxygen to maintain saturation above 90%. #Paroxysmal A. fib * back in afib with RVR again. Was initiated on amiodarone drip yesterday * HR still elevated. * Cardiology therefore consulted yesterday; awaiting rec's * On therapeutic Lovenox; will switch to eliquis 2.5mg bid. * used to be on sotalol but was switched to metoprolol o/a of sotalol interacting with his chemotherapy drug. He says his heart rate hasnt been very well controlled since then. * #History of esophageal cancer * Follows with Dr. Cook. Was recently started on a new chemotherapy agent. * Has port in place. #Asthma: Not in exacerbation. Breathing treatments with bronchodilators. #Hypertension: On losartan and metoprolol #Severe protein calorie malnutrition: Likely due to esophageal cancer. Nutrition on board. #DVT prophylaxis: Lovenox therapeutic on account of A. fib. Will switch to PO eliquis 2.5mg bid. Charges/Coding Visit Charges Inpatient E&M: 73624 Subs Hosp L3
[2022-03-06] MEDS: Insulin Lispro 100 UNIT/ML INSULN.PEN SC ×2 (11:54→16:30)
[2022-03-06 13:11] LABS: Bedside Glucose 163 mg/dL (74-106)
[2022-03-06] MEDS: Amiodarone 200 MG Tablet PO ×2 (13:31→21:43)
--- NOTE | 2022-03-06 14:00 | CON.PCM.CA_ITS ---
Assessment & Plan Assessment/Plan (1) Aspiration pneumonia: (2) Atrial fibrillation with RVR: PLAN: Patient 82-year-old with a history of C is a vigorous, has been on chemo. Therapy Cardiac consultation requested for AKaushal fib with RVR patient was started on amiodarone drip as well as anticoagulation with Eliquis He converted to normal sinus rhythm. According to the he does have a history of A. fib in the past and he was on sotalol which is discontinued. Cardiac care plan recommendations; 1. Agree with the current treatment with a beta-robert in addition to amiodarone p.o. 2. To continue anticoagulation with Eliquis due to the high risk of stroke 3. Patient has echocardiogram which showed LV function preserved with ejection fraction 55 to 60% Had diffuse aortic valve calcification with mild aortic stenosis, and mild tricuspid gravitation From cardiac standpoint we will continue to monitor and will plan for setting him as an outpatient with the cardiology team for continuation of cardiac care and monitoring his medication. HPI HPI Narrative Reason for Consultation: A. fib with RVR HPI Narrative: LUKASZ PIERRE, is a 82 M who presents, with symptoms of palpitation Does not have any active chest pain Symptoms has been associated with mild dizziness or lightheadedness There is no syncopal episode. Patient also has bilateral lower extremity swelling Is known to have history of esophageal cancer with a history of asthma hyperlipidemia and hypertension. Based on his clinical presentation with symptoms of palpitation and dizziness he had an EKG which confirmed evidence of atrial fibrillation with rapid ventricular rate. [facility] Medical History Aspiration pneumonia Asthma Chronic anemia Diabetes mellitus, type 2 Esophageal carcinoma HLD (hyperlipidemia) HTN (hypertension) Iron deficiency anemia PAF (paroxysmal atrial fibrillation) Home Medications cholecalciferol (vitamin D3) 50 mcg (2,000 unit) capsule (Vitamin D3) 1,000 unit PO DAILY SUPPLEMENT 11/08/16 [History Last Taken 1 Month Ago ~02/01/22] ofloxacin 0.3 % eye drops 1 drp EACH EYE QHS PRN Eye Irritation 02/12/22 [History Last Taken 03/02/22] acetaminophen 650 mg tablet,extended release 1,300 mg PO Q8H pain 03/04/22 [History Last Taken 03/04/22 07:30] amiodarone 200 mg tablet 200 mg PO BIDCM heart 03/09/22 [History Last Taken 03/13/22] amiodarone 200 mg tablet 200 mg PO DAILY heart 03/09/22 [History Last Taken Unknown] apixaban 2.5 mg tablet (Eliquis) 2.5 mg PO BID blood thinner 03/09/22 [History Last Taken Unknown] budesonide 0.5 mg/2 mL suspension for nebulization 0.5 mg inhalation BID.RT respiratory 03/09/22 [History Last Taken Unknown] furosemide 40 mg tablet 40 mg PO DAILY fluid pill 03/09/22 [History Last Taken Unknown] metoprolol tartrate 100 mg tablet 100 mg PO BID heart 03/09/22 [History Last Taken Unknown] ascorbic acid (vitamin C) 500 mg tablet 500 mg PO BREAKFAST 03/13/22 [History Last Taken Unknown] atorvastatin 20 mg tablet 20 mg PO DINNER 03/13/22 [History Last Taken Unknown] calamine phenolated lotion 1 applic topical BID 03/13/22 [History Last Taken Unknown] food supplemt, lactose-reduced 0.08 gram-1.5 kcal/mL oral liquid (Ensure Plus High Protein) 120 ml PO 4X/DAY 03/13/22 [History Last Taken Unknown] metformin 500 mg tablet 500 mg PO BIDCM 03/13/22 [History Last Taken Unknown] metoclopramide HCl 5 mg tablet See Rx Instructions .Route .COMPLEX 03/13/22 [History Last Taken Unknown] nystatin 100,000 unit/gram topical powder 1 applic topical BID 03/13/22 [History Last Taken Unknown] pioglitazone 15 mg tablet 15 mg PO BIDCM 03/13/22 [History Last Taken Unknown] polysaccharide iron complex 150 mg iron capsule 150 mg PO DAILY 03/13/22 [History Last Taken Unknown] potassium chloride 20 mEq tablet,extended release 20 meq PO DAILY 03/13/22 [History Last Taken Unknown] sennosides 8.6 mg-docusate sodium 50 mg tablet (Senna with Docusate Sodium) 1 tab PO BID 03/13/22 [History Last Taken Unknown] tramadol 50 mg tablet 50 mg PO Q6H PRN Pain 03/13/22 [History Last Taken Unknown] Allergy/AdvReac Type Severity Reaction Status Date / Time albuterol Allergy Other Verified 03/13/22 19:13 amoxicillin Allergy Other Verified 03/13/22 19:13 levofloxacin [From Levaquin] Allergy Other Verified 03/13/22 19:13 moxifloxacin [From Avelox] Allergy Other Verified 03/13/22 19:13 sulfamethoxazole Allergy Rash Verified 03/13/22 19:13 [From Bactrim] trimethoprim [From Bactrim] Allergy Rash Verified 03/13/22 19:13 Family History Father Hypertension Diabetes Heart disease CAD (coronary artery disease) Sister Hypertension Diabetes Mother Hypertension Surgical History H/O sinus surgery History of esophageal surgery Status post myringotomy with tube placement of both ears Social History household members: spouse Smoking Status: Never smoker alcohol intake: current alcohol intake frequency: a few times a month substance use type: does not use ROS ROS Narrative Review of 14 systems were unremarkable apart from his current presentation with symptoms of palpitation lightheadedness and dizziness and bilateral lower extremity edema with a clinical diagnosis of A. fib with RVR. Physical Exam Narrative Patient seen and evaluated at bedside today along with the nursing staff, at bedside He is alert orientated sitting out in a chair comfortable no symptoms reported Review of the laboratory monitor showed initial monitor showed A. fib with RVR converted to normal sinus rhythm Cardiovascular exam S1-S2 regular Chest exam clear to auscultation bilateral. Risk Stratification Risk Stratification Applicable: No Objective Data Vital Signs: Vital Signs Temp Pulse Resp BP Pulse Ox O2 Del Method O2 Flow Rate 97.9 F 103 H 24 H 96/59 L 98 Nasal Cannula 2 03/06/22 12:00 03/06/22 12:00 03/06/22 12:00 03/06/22 12:00 03/06/22 12:00 03/06/22 12:00 03/06/22 12:00 Oxygen Flow Rate (L/min) 2 Oxygen Delivery Method Nasal Cannula Weight: 167 lb 15.876 oz Body Mass Index (BMI) 24.2 Intake & Output: Intake and Output for Last 24 Hours 03/04/22 03/05/22 03/06/22 23:59 23:59 22:59 Intake Total 2290 / 2290 5380.24 / 5413.54 2216.58 / 2216.58 Output Total 250 / 250 200 / 200 300 / 300 Balance 2039 / 2039 5180.24 / 5213.54 1916.58 / 1915.58 Lab / Micro Data Result Diagrams: 03/09/22 04:35 03/09/22 04:35 Labs: Laboratory Results - last 24 hr 03/05/22 16:39: POC Glucose 150 H 03/05/22 21:30: POC Glucose 171 H 03/06/22 05:30: Vancomycin Trough 10.7 03/06/22 05:30: WBC 3.7 L, RBC 3.57 L, Hgb 9.5 L, Hct 31.5 L, MCV 88.2, MCH 26.6 L, MCHC 30.2 L, RDW Std Deviation 74.3 H, RDW Coeff of Rey 23.1 H, Plt Count 163, MPV 8.9, Immature Gran % (Auto) 0.800, Neut % (Auto) 85.2 H, Lymph % (Auto) 8.2 L, [place] % (Auto) 4.4, Eos % (Auto) 1.4, Baso % (Auto) 0.0, Absolute Neuts (auto) 3.1, Absolute Lymphs (auto) 0.30 L, Nucleated RBC % 0, Diff Path Review May foll, Anisocytosis 2+ 03/06/22 05:30: Sodium 137, Potassium 3.7, Chloride 103, Carbon Dioxide 30.0, Anion Gap 4 L, BUN 10, Creatinine 0.30 L, Estim Creat Clear Calc 56.95, Est GFR (MDRD) Af Amer 365, Est GFR (MDRD) Non-Af 302, BUN/Creatinine Ratio 33.0 H, Glucose 142 H, Calcium 7.5 L 03/06/22 07:50: POC Glucose 139 H 03/06/22 11:53: POC Glucose 163 H Micro: Microbiology 03/04/22 13:40 Blood Culture (Wb) - Anticubital Right Blood Culture - Preliminary No growth in 48 hours. 03/04/22 13:45 Blood Culture (Wb) - Port Blood Culture - Preliminary No growth in 48 hours. 03/04/22 14:41 Urine, Catheterized Urine Culture - Preliminary Culture exhibits no growth. Cardiology Labs/Tests 03/06/22 05:30: WBC 3.7 L, RBC 3.57 L, Hgb 9.5 L, Hct 31.5 L, MCV 88.2, MCH 26.6 L, MCHC 30.2 L, Plt Count 163, MPV 8.9, Immature Gran % (Auto) 0.800, Neut % (Auto) 85.2 H, Lymph % (Auto) 8.2 L, [place] % (Auto) 4.4, Eos % (Auto) 1.4, Baso % (Auto) 0.0, Absolute Neuts (auto) 3.1, Nucleated RBC % 0 03/06/22 05:30: Sodium 137, Potassium 3.7, Chloride 103, Carbon Dioxide 30.0, Anion Gap 4 L, BUN 10, Creatinine 0.30 L, Est GFR (MDRD) Af Amer 365, Est GFR (MDRD) Non-Af 302, BUN/Creatinine Ratio 33.0 H, Glucose 142 H, Calcium 7.5 L Rhythm: EKG: ECHO: Stress Test: Cardiac Cath: PCI: CT Surgery: Holter monitor: EPS: PPM: CXR: Chest CT Scan:
[2022-03-06] MEDS: Atorvastatin Calcium 20 MG Tablet PO (16:30)
[2022-03-06 17:15] LABS: Bedside Glucose 168 mg/dL (74-106)
[2022-03-06] MEDS: OFLOXACIN 5 ML DROPS OPHTHALMIC (21:36)
[2022-03-06] MEDS: APIXABAN 2.5 MG TABLET PO (21:37)
[2022-03-06] MEDS: Aspirin E.C. 81 MG Tablet PO (21:43)
[2022-03-06 23:05] LABS: Bedside Glucose 145 mg/dL (74-106)
[2022-03-07] VITALS (19 sets, daily range): BP systolic 96–166; BP diastolic 56–71; PULSE 79–113; RESP 14–20; TEMP 36.3–36.7; O2SAT 94–98
[2022-03-07] MEDS: Acetaminophen 325 MG Tablet 650 MG PO ×3 (00:28→20:32)
[2022-03-07] MEDS: oxyCODONE 5 MG Tablet PO ×3 (01:27→20:33)
[2022-03-07] MEDS: 0.9% Normal Saline 1,000 ML 100 ML IV ×3 (01:27→23:51)
[2022-03-07] MEDS: metroNIDAZOLE 500 MG/100 ML BAG 100 MG IV ×2 (05:48→14:01)
[2022-03-07] MEDS: Budesonide Respules 0.5 MG/2 ML AMPUL.NEB. INHALATION ×2 (07:17→19:05)
--- NOTE | 2022-03-07 07:55 | PN.CARD_ITS ---
Subjective Subjective The patient was seen and evaluated. Appears to be doing better this morning. Objective Data Vital Signs: Vital Signs Temp Pulse Resp BP Pulse Ox O2 Del Method O2 Flow Rate 97.5 F L 86 16 116/66 94 Nasal Cannula 2 03/07/22 05:46 03/07/22 05:46 03/07/22 05:46 03/07/22 05:46 03/07/22 05:46 03/07/22 05:46 03/07/22 05:46 Oxygen Flow Rate (L/min) 2 Oxygen Delivery Method Nasal Cannula Weight: 173 lb 15.115 oz Body Mass Index (BMI) 24.2 Intake & Output: Intake and Output for Last 24 Hours 03/06/22 03/06/22 03/07/22 00:59 23:59 23:59 Intake Total Output Total Balance Lab / Micro Data Result Diagrams: 03/06/22 05:30 03/06/22 05:30 Labs: Laboratory Results - last 24 hr 03/06/22 07:50: POC Glucose 139 H 03/06/22 11:53: POC Glucose 163 H 03/06/22 16:29: POC Glucose 168 H 03/06/22 21:33: POC Glucose 145 H Micro: Microbiology 03/04/22 15:18 Mucosa - Nose Respiratory Panel (PCR) - Final Rhinovirus 03/04/22 13:40 Blood Culture (Wb) - Anticubital Right Blood Culture - Preliminary No growth in 48 hours. 03/04/22 13:45 Blood Culture (Wb) - Port Blood Culture - Preliminary No growth in 48 hours. Cardiology Labs/Tests Rhythm: EKG: ECHO: Stress Test: Cardiac Cath: PCI: CT Surgery: Holter monitor: EPS: PPM: CXR: Chest CT Scan: Physical Exam Const alert, oriented x3 and no apparent distress General Appearance: cooperative HEENT hearing grossly normal bilaterally Head and Scalp: atraumatic Eyes EOMs intact bilaterally Neck General: normal visual inspection Chest inspection of chest normal and palpation of chest normal Resp normal respiratory effort Auscultation: clear to auscultation bilaterally Cardio regular rate, regular rhythm, S1 normal heart sound and S2 normal heart sound Jugular Venous Distention: JVD Heart Sounds: murmur systolic II/ soft early left sternal border GI normal to inspection, nondistended, normoactive bowel sounds Extremity normal capillary refill and no pedal edema General Extremity: edema Peripheral Pulses: Yes pulses 2+ throughout and femoral pulses present Skin no rashes or lesions noted Neuro oriented x3 and CN's II-XII intact bilaterally Psych Appearance: grossly normal and appropriate Assessment & Plan Assessment/Plan (1) Atrial fibrillation with RVR: PLAN: Patient appears to have been in atrial fibrillation with a rapid ventricular response rate. It is not clear whether this is his first episode or not. He is currently in sinus rhythm. * Recommendation will be to continue him on the anticoagulation with low-dose Eliquis * Continue beta-robert * Continue amiodarone orally for now (2) CHF (NYHA class II, ACC/AHA stage C): PLAN: He appears to have congestive heart failure with pedal edema likely diastolic in origin. His echocardiogram demonstrated preserved ejection fraction with mild aortic stenosis and sclerosis. * Would recommend a dose of intravenous diuretics today and follow-up with oral diuretics.
[2022-03-07 08:01] LABS: Absolute Lymphocyte Count 0.36 X10^3/uL (0.83-4.51); Absolute Neutrophil Count 4.3 X10^3/uL (2.0-7.7); Basophil# 0.02 X10^3/uL; Basophil% 0.4 % (0-1); Eosinophil# 0.07 X10^3/uL; Eosinophils% 1.4 % (0-5); Hematocrit 37.4 % (40-54); Hemoglobin 11.6 g/dL (13.0-16.5); Lymphocyte # 0.36 X10^3/ul (0.83-4.51); Lymphocyte % 7.2 % (19-41); Mean Corpuscular Hgb 27.2 pg (27.0-32.0); Mean Corpuscular Volume 87.6 fL (80-94); Mean Platelet Vol. 9.4 fl (6.2-12.0); Monocyte# 0.22 X10^3/uL; Monocyte% 4.4 % (0-10); NRBC Flagged by Analyzer 0 % (0-5); Neutrophil # 4.27 X10^3/uL (2.7-7.7); Neutrophil % 85.8 % (47-70); POSITIVE DIFFERENTIAL YES; POSITIVE MORPHOLOGY YES; Platelet Count 154 K/mm3 (150-450); RBC Distribution Width SD 72.8 fl (35.1-43.9); Red Blood Count 4.27 M/mm3 (4.6-6.2)
[2022-03-07 08:03] LABS: Differential Indicated SCAN CRITERIA MET
[2022-03-07 08:20] LABS: Bedside Glucose 125 mg/dL (74-106)
[2022-03-07] MEDS: Amiodarone 200 MG Tablet PO ×2 (08:26→20:39)
[2022-03-07] MEDS: Metoprolol Tartrate 50 MG Tablet PO (08:26)
[2022-03-07] MEDS: Menthol/Lanolin/Calamine/Znox 113 GM Tube 1 APPLIC TOPICAL ×2 (08:27→20:30)
[2022-03-07] MEDS: Nystatin Powder 15gm Bottle 1 APPLIC TOPICAL ×2 (08:27→20:39)
[2022-03-07] MEDS: APIXABAN 2.5 MG TABLET PO ×2 (08:27→20:39)
[2022-03-07 08:32] LABS: Anisocytosis RARE
[2022-03-07] MEDS: Furosemide 40 MG/4 ML Vial IV (08:34)
[2022-03-07 08:38] LABS: Anion Gap 6 (5-15); BUN 10 mg/dL (7-18); BUN/Creat Ratio 30.3 RATIO (10-20); Calcium,Total 7.9 mg/dL (8.5-10.1); Chloride 105 mmol/L (98-107); Creatinine, Serum 0.33 mg/dL (0.70-1.30); EST Glomerular Filtration Rate 273 mL/min (>60); Est Glom Filt Rate - Afr Amer 331 mL/min (>60); Estimated Creatinine Clearance 56.95 ml/min; Glucose 133 mg/dL (74-106); Sodium Level 137 mmol/L (136-145)
[2022-03-07] MEDS: Ceftriaxone 1 GM/50 ML BAG IV (10:44)
[2022-03-07 11:15] LABS: Bedside Glucose 122 mg/dL (74-106)
[2022-03-07 12:37] LABS: Pathologist Review Reviewed
[2022-03-07 12:56] LABS: Pathologist Review Reviewed
--- NOTE | 2022-03-07 14:10 | PN.HOSP_ITS ---
Subjective Subjective Patient seen and examined. He said he felt a bit better today, but still felt quite frail. He denied any chest pain, palpitations, dizziness, nausea, vomiting or diarrhea. Review of systems was otherwise negative. Heart rate is much better controlled today. Objective Data Objective Data Vital Signs: Vital Signs Temp Pulse Resp BP Pulse Ox O2 Del Method O2 Flow Rate 98.1 F 96 18 110/62 97 Nasal Cannula 2 03/07/22 13:29 03/07/22 13:29 03/07/22 13:29 03/07/22 13:29 03/07/22 13:29 03/07/22 13:29 03/07/22 13:29 Oxygen Flow Rate (L/min) 2 Oxygen Delivery Method Nasal Cannula Weight: 173 lb 15.115 oz Body Mass Index (BMI) 24.2 Intake & Output: Intake and Output for Last 24 Hours 03/06/22 03/06/22 03/07/22 00:59 23:59 23:59 Intake Total 1828.33 / 1828.33 Output Total 750 / 750 Balance 1078.33 / 1078.33 Medical Nutrition Assessment Dietitian: Malnutrition Criteria Met Start: 03/05/22 12 :03 Freq: Status: Active Protocol: Document 03/05/22 12:06 SULEMAN (Rec: 03/05/22 12:06 SULEMAN [id number]) Nutrition Malnutrition Evidence of Malnutrition Exists Yes Malnutrition (severe): Chronic Evidenced By Suboptimal Energy Intake ( Severe),Weight Loss (Severe), Physical Changes (Moderate) Clinical Problem Chronic Disease or Condition Related Malnutrition Etiology related to esophageal cancer and issues w/ chewing/ swallowing making it difficult to meet est energy / protein needs Signs/Symptoms as evidenced by need for [facility], [place] altered diet, 13.4% wt loss and consuming <50% of est nutritional needs x 6 mo. Pt has fat/muscle loss per NFPA Status Active Problem Recommendation Dietitian Recommendations/Changes Will order 120 ml ensure plus high protein 4x/day w/ medpass . Will continue regular diet - consistency per RELIABILITY SPECIALIST - d/t signs and symptoms of malnutrition. Will provide fortified foods w / all meals and ensure pudding or magic cup w/ lunch and dinner. Rec consider appetite stimulant. May need to consider enteral nutrition support if continued poor po intake and / or wt loss to help prevent additional decline in pt nutrition status - if in accordance w/ pt/family wishes Lab / Micro Data Result Diagrams: 03/07/22 07:34 03/07/22 07:34 Labs: Laboratory Results - last 24 hr 03/04/22 13:45: Diff Path Review Reviewed 03/06/22 05:30: Diff Path Review Reviewed 03/06/22 16:29: POC Glucose 168 H 03/06/22 21:33: POC Glucose 145 H 03/07/22 07:34: WBC 5.0, RBC 4.27 L, Hgb 11.6 L, Hct 37.4 L, MCV 87.6, MCH 27.2, MCHC 31.0 L, RDW Std Deviation 72.8 H, RDW Coeff of Rey 23.0 H, Plt Count 154, MPV 9.4, Immature Gran % (Auto) 0.800, Neut % (Auto) 85.8 H, Lymph % (Auto) 7.2 L, [place] % (Auto) 4.4, Eos % (Auto) 1.4, Baso % (Auto) 0.4, Absolute Neuts (auto) 4.3, Absolute Lymphs (auto) 0.36 L, Nucleated RBC % 0, Anisocytosis RARE 03/07/22 07:34: Sodium 137, Potassium 4.0, Chloride 105, Carbon Dioxide 26.0, Anion Gap 6, BUN 10, Creatinine 0.33 L, Estim Creat Clear Calc 56.95, Est GFR (MDRD) Af Amer 331, Est GFR (MDRD) Non-Af 273, BUN/Creatinine Ratio 30.3 H, Glucose 133 H, Calcium 7.9 L 03/07/22 07:58: POC Glucose 125 H 03/07/22 10:53: POC Glucose 122 H Micro: Microbiology 03/04/22 14:41 Urine, Catheterized Urine Culture - Final Culture exhibits no growth. 03/04/22 15:18 Mucosa - Nose Respiratory Panel (PCR) - Final Rhinovirus 03/04/22 13:40 Blood Culture (Wb) - Anticubital Right Blood Culture - Preliminary No growth in 48 hours. 03/04/22 13:45 Blood Culture (Wb) - Port Blood Culture - Preliminary No growth in 48 hours. 03/04/22 14:41 Urine Catheter - Catheter Legionella Antigen - Final 03/04/22 14:41 Urine Catheter - Catheter Streptococcus pneumoniae Antigen (M - Final 03/04/22 13:45 Nasal Secretion SARS-CoV-2 & FLU Antigen (Rapid) - Final Physical Exam Const alert, oriented x3 and no apparent distress Constitutional Narrative: frail HEENT head/scalp atraumatic, moist oral mucous membranes and oropharynx normal Head and Scalp: normocephalic Mouth: oral and palatal mucosa normal Eyes PERRL, EOMs intact bilaterally and conjunctivae normal Neck no lymphadenopathy and supple Resp Resp Narrative: mildly diminished breath sounds bibasally, no wheezes or crackles. On 2L of oxygen by nasal canula Cardio regular rate, regular rhythm, S1 normal heart sound, S2 normal heart sound and no murmurs Cardio Narrative: tachycardia has resolved GI normal to inspection, nondistended, normoactive bowel sounds, soft to palpation, non-tender and non-distended Extremity normal to inspection, full ROM and no clubbing, cyanosis or edema Neuro oriented x3, CN's II-XII intact bilaterally, moves all extremities and no focal motor deficits Sensorium / Orientation: awake and alert Motor Exam: strength 5/5 throughout Psych affect normal Assessment & Plan Assessment/Plan (1) Aspiration pneumonia: (2) Atrial fibrillation with RVR: PLAN: Plan #Recurrent aspiration pneumonia * Feels his breathing is improving. On 2 L of oxygen by nasal cannula. * On IV vancomycin as well as Flagyl and Rocephin. * respiratory panel positive for rhinovirus * Sputum cultures pending. Aspiration precautions. * Breathing treatments bronchodilators. Titrate oxygen to maintain saturation above 90%. * will dc antibiotics #Paroxysmal A. fib * RVR has resolved * on PO amiodarone and metoprolol * on eliquis 2.5mg bid * used to be on sotalol but was switched to metoprolol o/a of sotalol interacting with his chemotherapy drug. He says his heart rate hasnt been very well controlled since then. * #History of esophageal cancer * Follows with Dr. Cook. Was recently started on a new chemotherapy agent. * Has port in place. #Asthma: Not in exacerbation. Breathing treatments with bronchodilators. #Hypertension: On losartan and metoprolol #Severe protein calorie malnutrition: Likely due to esophageal cancer. Nutrition on board. #DVT prophylaxis: eliquis 2.5mg bid Charges/Coding Visit Charges Inpatient E&M: 00782 Subs Hosp L2
[2022-03-07] MEDS: Glucerna Shake 120 ML LIQUID PO (16:16)
[2022-03-07] MEDS: Atorvastatin Calcium 20 MG Tablet PO (16:16)
[2022-03-07 16:31] LABS: Bedside Glucose 136 mg/dL (74-106)
--- NOTE | 2022-03-07 16:36 | CHAPLAIN ---
Type of Pastoral Visit _x__ Initial Visit ___ Follow-up Visit ___ On-call Visit ___ General Patient Visit ___ Spiritual Assessment ___ Family Conference ___ Bereavement ___ Rapid Response ___ Code Blue ___ Other (describe below) Pastoral Care Referral From __x_ Patient ___ Family ___ Nurse ___ Physician ___ Patient Educator ___ Stone Processing Machine Operator ___ Other (describe below) Sacrament/Intervention _x__ Active listening ___ Anointing ___ Mormonism ___ Bereavement ___ Communion _x__ Kirsty exploration ___ ___ Life review _x__ Prayer ___ Reconciliation ___ Sacrament of Sick _x__ Supportive presence ___ Wedding ___ Other (describe below) Pastoral Comments patient has been seen before in a previous admission; pt remembers this hazard mitigation officer and welcomes the spiritual care support; pt and spouse both speak of reasons for return to hospital; pt admits to concerns for his family when asked about his needs; pt says that yesterday was a good day because my son and his family came to visit me; pt also has other children and grandchildren in the area that are supportive; pt has a hoahaoism connection with an interim wheat grower; pt specifically asks for prayer
[2022-03-07] MEDS: Metoprolol Tartrate 100 MG Tablet PO (20:32)
[2022-03-07] MEDS: Aspirin E.C. 81 MG Tablet PO (20:39)
[2022-03-07] MEDS: OFLOXACIN 5 ML DROPS OPHTHALMIC (20:40)
[2022-03-07 21:26] LABS: Bedside Glucose 119 mg/dL (74-106)
[2022-03-08] VITALS (22 sets, daily range): BP systolic 99–116; BP diastolic 53–64; PULSE 78–121; RESP 16–24; TEMP 36.7–37.2; O2SAT 84–99
[2022-03-08] MEDS: 0.9% Saline Lock 10 ML Syringe IV (03:24)
[2022-03-08] MEDS: Furosemide 20 MG/2 ML VIAL IV (03:24)
[2022-03-08 06:40] LABS: Bedside Glucose 116 mg/dL (74-106)
[2022-03-08] MEDS: Budesonide Respules 0.5 MG/2 ML AMPUL.NEB. INHALATION ×2 (07:21→18:50)
[2022-03-08 07:24] LABS: Absolute Lymphocyte Count 0.47 X10^3/uL (0.83-4.51); Absolute Neutrophil Count 6.3 X10^3/uL (2.0-7.7); Basophil# 0.02 X10^3/uL; Basophil% 0.3 % (0-1); Eosinophil# 0.05 X10^3/uL; Eosinophils% 0.7 % (0-5); Hematocrit 32.1 % (40-54); Hemoglobin 10.1 g/dL (13.0-16.5); Lymphocyte # 0.47 X10^3/ul (0.83-4.51); Lymphocyte % 6.4 % (19-41); Mean Corp Hgb Conc 31.5 g/dL (32-36); Mean Corpuscular Hgb 27.2 pg (27.0-32.0); Mean Corpuscular Volume 86.3 fL (80-94); Mean Platelet Vol. 8.7 fl (6.2-12.0); Monocyte# 0.43 X10^3/uL; Monocyte% 5.9 % (0-10); NRBC Flagged by Analyzer 0 % (0-5); Neutrophil # 6.29 X10^3/uL (2.7-7.7); POSITIVE DIFFERENTIAL YES; POSITIVE MORPHOLOGY YES; Platelet Count 167 K/mm3 (150-450); RBC Distribution Width CV 22.8 % (11.6-14.6); RBC Distribution Width SD 72.7 fl (35.1-43.9); Red Blood Count 3.72 M/mm3 (4.6-6.2); White Blood Count 7.3 K/mm3 (4.4-11.0)
[2022-03-08 07:52] LABS: Anion Gap 6 (5-15); BUN 9 mg/dL (7-18); BUN/Creat Ratio 30.8 RATIO (10-20); Calcium,Total 7.5 mg/dL (8.5-10.1); Chloride 103 mmol/L (98-107); Creatinine, Serum 0.29 mg/dL (0.70-1.30); EST Glomerular Filtration Rate 315 mL/min (>60); Est Glom Filt Rate - Afr Amer 381 mL/min (>60); Estimated Creatinine Clearance 56.95 ml/min; Glucose 119 mg/dL (74-106); Potassium 3.4 mmol/L (3.5-5.1); Sodium Level 137 mmol/L (136-145)
[2022-03-08] MEDS: APIXABAN 2.5 MG TABLET PO ×2 (08:07→20:50)
[2022-03-08] MEDS: Metoprolol Tartrate 100 MG Tablet PO ×2 (08:07→20:37)
[2022-03-08] MEDS: oxyCODONE 5 MG Tablet PO ×3 (08:08→20:49)
[2022-03-08] MEDS: Amiodarone 200 MG Tablet PO ×2 (08:08→20:37)
[2022-03-08] MEDS: Nystatin Powder 15gm Bottle 1 APPLIC TOPICAL ×2 (08:09→20:50)
[2022-03-08] MEDS: Menthol/Lanolin/Calamine/Znox 113 GM Tube 1 APPLIC TOPICAL ×2 (08:09→20:36)
[2022-03-08 08:17] LABS: Differential Indicated SCAN CRITERIA MET
[2022-03-08] MEDS: Potassium Chloride Oral Tablet 20 MEQ 40 MEQ PO (08:23)
[2022-03-08 08:37] LABS: Differential Comment SCANNED
[2022-03-08 08:38] LABS: Anisocytosis 2+; Macrocytosis 1+; Microcytosis 1+
--- NOTE | 2022-03-08 10:33 | PN.HOSP_ITS ---
Subjective Subjective Patient seen and examined. He says he feels better today. He has no active complaints. Review of systems is otherwise negative. He is on 2L of oxygen by nasal canula. Objective Data Objective Data Vital Signs: Vital Signs Temp Pulse Resp BP Pulse Ox O2 Del Method O2 Flow Rate 98.6 F 92 20 H 116/63 97 Nasal Cannula 2 03/08/22 10:04 03/08/22 10:04 03/08/22 10:04 03/08/22 10:04 03/08/22 10:32 03/08/22 10:32 03/08/22 10:32 Oxygen Flow Rate (L/min) 2 Oxygen Delivery Method Nasal Cannula Weight: 175 lb 7.807 oz Body Mass Index (BMI) 24.2 Intake & Output: Intake and Output for Last 24 Hours 03/06/22 03/07/22 03/08/22 23:59 23:59 23:59 Intake Total 3366.66 / 3366.66 236.67 / 236.67 Output Total 1350 / 1350 1150 / 1150 Balance -913.33 / -913.33 Medical Nutrition Assessment Dietitian: Malnutrition Criteria Met Start: 03/05/22 12:03 Freq: Status: Active Protocol: Document 03/05/22 12:06 SULEMAN (Rec: 03/05/22 12:06 SULEMAN [id number]) Nutrition Malnutrition Evidence of Malnutrition Exists Yes Malnutrition (severe): Chronic Evidenced By Suboptimal Energy Intake ( Severe),Weight Loss (Severe), Physical Changes (Moderate) Clinical Problem Chronic Disease or Condition Related Malnutrition Etiology related to esophageal cancer and issues w/ chewing/ swallowing making it difficult to meet est energy / protein needs Signs/Symptoms as evidenced by need for mech altered diet, 13.4% wt loss and consuming <50% of est nutritional needs x 6 mo. Pt has fat/muscle loss per NFPA Status Active Problem Recommendation Dietitian Recommendations/Changes Will order 120 ml ensure plus high protein 4x/day w/ medpass . Will continue regular diet - consistency per [employer]ANG[employer] - d/t signs and symptoms of malnutrition. Will provide fortified foods w / all meals and ensure pudding or magic cup w/ lunch and dinner. Rec consider appetite stimulant. May need to consider enteral nutrition support if continued poor po intake and / or wt loss to help prevent additional decline in pt nutrition status - if in accordance w/ pt/family wishes Lab / Micro Data Result Diagrams: 03/08/22 06:50 03/08/22 06:50 Labs: Laboratory Results - last 24 hr 03/04/22 13:45: Diff Path Review Reviewed 03/06/22 05:30: Diff Path Review Reviewed 03/07/22 10:53: POC Glucose 122 H 03/07/22 16:00: POC Glucose 136 H 03/07/22 20:27: POC Glucose 119 H 03/08/22 06:13: POC Glucose 116 H 03/08/22 06:50: WBC 7.3, RBC 3.72 L, Hgb 10.1 L, Hct 32.1 L, MCV 86.3, MCH 27.2, MCHC 31.5 L, RDW Std Deviation 72.7 H, RDW Coeff of Rey 22.8 H, Plt Count 167, MPV 8.7, Immature Gran % (Auto) 0.700, Neut % (Auto) 86.0 H, Lymph % (Auto) 6.4 L, [place] % (Auto) 5.9, Eos % (Auto) 0.7, Baso % (Auto) 0.3, Absolute Neuts (auto) 6.3, Absolute Lymphs (auto) 0.47 L, Nucleated RBC % 0, Differential Comment SCANNED, Anisocytosis 2+, Microcytosis 1+, Macrocytosis 1+ 03/08/22 06:50: Sodium 137, Potassium 3.4 L, Chloride 103, Carbon Dioxide 28.0, Anion Gap 6, BUN 9, Creatinine 0.29 L, Estim Creat Clear Calc 56.95, Est GFR (MDRD) Af Amer 381, Est GFR (MDRD) Non-Af 315, BUN/Creatinine Ratio 30.8 H, Glucose 119 H, Calcium 7.5 L Micro: Microbiology 03/04/22 14:41 Urine, Catheterized Urine Culture - Final Culture exhibits no growth. 03/04/22 15:18 Mucosa - Nose Respiratory Panel (PCR) - Final Rhinovirus 03/04/22 13:40 Blood Culture (Wb) - Anticubital Right Blood Culture - Preliminary No growth in 48 hours. 03/04/22 13:45 Blood Culture (Wb) - Port Blood Culture - Preliminary No growth in 48 hours. 03/04/22 14:41 Urine Catheter - Catheter Legionella Antigen - Final 03/04/22 14:41 Urine Catheter - Catheter Streptococcus pneumoniae Antigen (M - Final 03/04/22 13:45 Nasal Secretion SARS-CoV-2 & FLU Antigen (Rapid) - Final Physical Exam Const alert, oriented x3 and no apparent distress Constitutional Narrative: frail HEENT head/scalp atraumatic, moist oral mucous membranes and oropharynx normal Head and Scalp: normocephalic Mouth: oral and palatal mucosa normal Eyes PERRL, EOMs intact bilaterally and conjunctivae normal Neck no lymphadenopathy and supple Resp Resp Narrative: mildly diminished breath sounds bibasally, no wheezes or crackles. On 2L of oxygen by nasal canula Cardio regular rate, regular rhythm, S1 normal heart sound, S2 normal heart sound and no murmurs Cardio Narrative: tachycardia has resolved GI normal to inspection, nondistended, normoactive bowel sounds, soft to palpation, non-tender and non-distended Extremity normal to inspection, full ROM and no clubbing, cyanosis or edema Neuro oriented x3, CN's II-XII intact bilaterally, moves all extremities and no focal motor deficits Sensorium / Orientation: awake and alert Motor Exam: strength 5/5 throughout Psych affect normal Assessment & Plan Assessment/Plan (1) Aspiration pneumonia: (2) Atrial fibrillation with RVR: PLAN: Plan #Recurrent aspiration pneumonia * Oxygen requirements increased to 4L overnight, but now on 2 L of oxygen by nasal cannula. * respiratory panel positive for rhinovirus * Sputum cultures pending. Aspiration precautions. * Breathing treatments bronchodilators. Titrate oxygen to maintain saturation above 90%. * antibiotics discontinued #Paroxysmal A. fib * RVR has resolved * on PO amiodarone and metoprolol * on eliquis 2.5mg bid * used to be on sotalol but was switched to metoprolol o/a of sotalol interactin g with his chemotherapy drug. He says his heart rate hasnt been very well controlled since then. * #History of esophageal cancer * Follows with Dr. Cook. * Was recently started on a new chemotherapy agent. * Has port in place. #Asthma: Not in exacerbation. Breathing treatments with bronchodilators. #Hypertension: On losartan and metoprolol #Severe protein calorie malnutrition: Likely due to esophageal cancer. Nutrition on board. #DVT prophylaxis: eliquis 2.5mg bid Charges/Coding Visit Charges Inpatient E&M: 65848 Subs Hosp L2
[2022-03-08 11:15] LABS: Bedside Glucose 101 mg/dL (74-106)
[2022-03-08 11:54] LABS: Magnesium 1.4 mg/dL (1.6-2.6)
[2022-03-08] MEDS: Acetaminophen 325 MG Tablet 650 MG PO ×2 (12:50→20:49)
--- NOTE | 2022-03-08 14:02 | CASEMGMT ---
Therapy is still recommending HHC for pt and pt will likely need home oxygen at discharge. CM to follow. Keyshawn PERALTA CM
[2022-03-08] MEDS: Atorvastatin Calcium 20 MG Tablet PO (16:52)
[2022-03-08 17:16] LABS: Bedside Glucose 154 mg/dL (74-106)
[2022-03-08] MEDS: Magnesium Sulfate 4gm/100mL 4 GM/100 ML IV.SOLN. IV (17:37)
--- NOTE | 2022-03-08 17:40 | PN.CARD_ITS ---
Subjective Subjective Patient seen and evaluated. Appears to be doing better. Objective Data Vital Signs: Vital Signs Temp Pulse Resp BP Pulse Ox O2 Del Method O2 Flow Rate 98.1 F 81 18 99/56 L 96 Nasal Cannula 2 03/08/22 16:51 03/08/22 16:51 03/08/22 16:51 03/08/22 16:51 03/08/22 16:51 03/08/22 16:51 03/08/22 16:51 Oxygen Flow Rate (L/min) [ 8 AMBULATING with Oxygen #3] Oxygen Flow Rate (L/min) [ 6 AMBULATING with Oxygen #2] Oxygen Flow Rate (L/min) [ 4 AMBULATING with Oxygen #1] Oxygen Flow Rate (L/min) [At 2 REST with Oxygen] Oxygen Flow Rate (L/min) 2 Oxygen Delivery Method Nasal Cannula Weight: 175 lb 7.807 oz Body Mass Index (BMI) 24.2 Intake & Output: Intake and Output for Last 24 Hours 03/06/22 03/07/22 03/08/22 23:59 23:59 23:59 Intake Total 3366.66 / 3366.66 236.67 / 236.67 Output Total 1350 / 1350 1150 / 1150 Balance 2016 / -913.33 / -913.33 Lab / Micro Data Result Diagrams: 03/08/22 06:50 03/08/22 06:50 Labs: Laboratory Results - last 24 hr 03/07/22 20:27: POC Glucose 119 H 03/08/22 06:13: POC Glucose 116 H 03/08/22 06:50: WBC 7.3, RBC 3.72 L, Hgb 10.1 L, Hct 32.1 L, MCV 86.3, MCH 27.2, MCHC 31.5 L, RDW Std Deviation 72.7 H, RDW Coeff of Rey 22.8 H, Plt Count 167, MPV 8.7, Immature Gran % (Auto) 0.700, Neut % (Auto) 86.0 H, Lymph % (Auto) 6.4 L, [place] % (Auto) 5.9, Eos % (Auto) 0.7, Baso % (Auto) 0.3, Absolute Neuts (auto) 6.3, Absolute Lymphs (auto) 0.47 L, Nucleated RBC % 0, Differential Comment SCANNED, Anisocytosis 2+, Microcytosis 1+, Macrocytosis 1+ 03/08/22 06:50: Sodium 137, Potassium 3.4 L, Chloride 103, Carbon Dioxide 28.0, Anion Gap 6, BUN 9, Creatinine 0.29 L, Estim Creat Clear Calc 56.95, Est GFR (MDRD) Af Amer 381, Est GFR (MDRD) Non-Af 315, BUN/Creatinine Ratio 30.8 H, Glucose 119 H, Calcium 7.5 L 03/08/22 06:50: Magnesium 1.4 L 03/08/22 10:54: POC Glucose 101 03/08/22 16:56: POC Glucose 154 H Cardiology Labs/Tests 03/08/22 06:50: WBC 7.3, RBC 3.72 L, Hgb 10.1 L, Hct 32.1 L, MCV 86.3, MCH 27.2, MCHC 31.5 L, Plt Count 167, MPV 8.7, Immature Gran % (Auto) 0.700, Neut % (Auto) 86.0 H, Lymph % (Auto) 6.4 L, [place] % (Auto) 5.9, Eos % (Auto) 0.7, Baso % (Auto) 0.3, Absolute Neuts (auto) 6.3, Nucleated RBC % 0 03/08/22 06:50: Sodium 137, Potassium 3.4 L, Chloride 103, Carbon Dioxide 28.0, Anion Gap 6, BUN 9, Creatinine 0.29 L, Est GFR (MDRD) Af Amer 381, Est GFR (MDRD) Non-Af 315, BUN/Creatinine Ratio 30.8 H, Glucose 119 H, Calcium 7.5 L 03/08/22 06:50: Magnesium 1.4 L Rhythm: EKG: ECHO: Stress Test: Cardiac Cath: PCI: CT Surgery: Holter monitor: EPS: PPM: CXR: Chest CT Scan: Physical Exam Const alert, oriented x3 and no apparent distress Constitutional Narrative: frail HEENT head/scalp atraumatic, moist oral mucous membranes and oropharynx normal Head and Scalp: normocephalic Mouth: oral and palatal mucosa normal Eyes PERRL, EOMs intact bilaterally and conjunctivae normal Neck no lymphadenopathy and supple Resp Resp Narrative: mildly diminished breath sounds bibasally, no wheezes or crackles. On 2L of oxygen by nasal canula Cardio regular rate, regular rhythm, S1 normal heart sound, S2 normal heart sound and no murmurs Cardio Narrative: tachycardia has resolved GI normal to inspection, nondistended, normoactive bowel sounds, soft to palpation, non-tender and non-distended Extremity normal to inspection, full ROM and no clubbing, cyanosis or edema Neuro oriented x3, CN's II-XII intact bilaterally, moves all extremities and no focal motor deficits Sensorium / Orientation: awake and alert Motor Exam: strength 5/5 throughout Psych affect normal Assessment & Plan Assessment/Plan (1) Atrial fibrillation with RVR: PLAN: Patient appears to have been in atrial fibrillation with a rapid ventricular response rate. It is not clear whether this is his first episode or not. He is currently in sinus rhythm. * Recommendation will be to continue him on the anticoagulation with low-dose Eliquis * Continue beta-robert at the new dose. * Continue amiodarone orally for now (2) CHF (NYHA class II, ACC/AHA stage C): PLAN: He appears to have congestive heart failure with pedal edema likely diastolic in origin. His echocardiogram demonstrated preserved ejection fraction with mild aortic stenosis and sclerosis. * Would recommend a dose of intravenous diuretics today and follow-up with oral diuretics.
[2022-03-08] MEDS: OFLOXACIN 5 ML DROPS OPHTHALMIC (20:53)
[2022-03-08] MEDS: ChlorproMAZINE 25 MG Tablet PO (22:52)
[2022-03-09] VITALS (13 sets, daily range): BP systolic 101–121; BP diastolic 53–65; PULSE 80–108; RESP 16–22; TEMP 36.6–37.2; O2SAT 90–97
[2022-03-09] MEDS: Aspirin E.C. 81 MG Tablet PO (00:46)
[2022-03-09 01:05] LABS: Bedside Glucose 149 mg/dL (74-106)
[2022-03-09 05:23] LABS: Absolute Lymphocyte Count 0.49 X10^3/uL (0.83-4.51); Absolute Neutrophil Count 5.1 X10^3/uL (2.0-7.7); Basophil# 0.02 X10^3/uL; Basophil% 0.3 % (0-1); Eosinophil# 0.02 X10^3/uL; Eosinophils% 0.3 % (0-5); Hematocrit 31.7 % (40-54); Hemoglobin 9.9 g/dL (13.0-16.5); Lymphocyte # 0.49 X10^3/ul (0.83-4.51); Lymphocyte % 7.8 % (19-41); Mean Corp Hgb Conc 31.2 g/dL (32-36); Mean Corpuscular Hgb 26.9 pg (27.0-32.0); Mean Corpuscular Volume 86.1 fL (80-94); Monocyte# 0.58 X10^3/uL; Monocyte% 9.3 % (0-10); NRBC Flagged by Analyzer 0 % (0-5); Neutrophil # 5.09 X10^3/uL (2.7-7.7); Neutrophil % 81.3 % (47-70); POSITIVE DIFFERENTIAL YES; POSITIVE MORPHOLOGY YES; Platelet Count 138 K/mm3 (150-450); RBC Distribution Width SD 72.5 fl (35.1-43.9); Red Blood Count 3.68 M/mm3 (4.6-6.2); White Blood Count 6.3 K/mm3 (4.4-11.0)
[2022-03-09 05:28] LABS: Differential Indicated SCAN CRITERIA MET
[2022-03-09 05:58] LABS: Anion Gap 8 (5-15); BUN 12 mg/dL (7-18); BUN/Creat Ratio 30.5 RATIO (10-20); Calcium,Total 7.5 mg/dL (8.5-10.1); Chloride 99 mmol/L (98-107); Creatinine, Serum 0.39 mg/dL (0.70-1.30); EST Glomerular Filtration Rate 223 mL/min (>60); Est Glom Filt Rate - Afr Amer 270 mL/min (>60); Estimated Creatinine Clearance 56.95 ml/min; Glucose 146 mg/dL (74-106); Potassium 3.8 mmol/L (3.5-5.1); Sodium Level 135 mmol/L (136-145)
[2022-03-09 06:15] LABS: Anisocytosis 1+; Differential Comment SCANNED; Macrocytosis RARE; Microcytosis RARE
[2022-03-09 06:30] LABS: Bedside Glucose 145 mg/dL (74-106)
[2022-03-09] MEDS: Budesonide Respules 0.5 MG/2 ML AMPUL.NEB. INHALATION (06:50)
--- NOTE | 2022-03-09 07:34 | NURSING ---
patient uptitrated to 3L- sats at 93-94%
[2022-03-09] MEDS: Amiodarone 200 MG Tablet PO (09:47)
[2022-03-09] MEDS: APIXABAN 2.5 MG TABLET PO (09:47)
[2022-03-09] MEDS: Furosemide 40 MG Tablet PO (09:47)
[2022-03-09] MEDS: Metoprolol Tartrate 100 MG Tablet PO (09:47)
[2022-03-09] MEDS: Menthol/Lanolin/Calamine/Znox 113 GM Tube 1 APPLIC TOPICAL (09:48)
[2022-03-09] MEDS: Nystatin Powder 15gm Bottle 1 APPLIC TOPICAL (09:50)
[2022-03-09] MEDS: Acetaminophen 325 MG Tablet 650 MG PO ×2 (09:53→15:46)
[2022-03-09] MEDS: oxyCODONE 5 MG Tablet PO ×2 (09:53→15:46)
--- NOTE | 2022-03-09 10:00 | CASEMGMT ---
would now like pt to go to SNF at discharge, so Darling at [facility] updated, voices understanding. Keyshawn PERALTA CM
--- NOTE | 2022-03-09 10:26 | CASEMGMT ---
Addendum entered by Keerthi Ulloa 03/09/22 11:03: ANNA went back to patient's room. ANNA gave a list of nursing home facility providers including quality and resource use data and consistent with patient?s preferred geographic region, medical needs, and insurance network were provided from the [employer] Guide. ANNA explained that ANNA could check with other facilities as some do allow patient's to get chemo. They declined, but did accept the list. ANNA let them know ANNA sent patient's information to insurance. Plan: d/c to TCU pending insurance approval Keerthi DEGROOT Original Note: RN notified ANNA that patient's would like patient to go to TCU. ANNA met with patient and his . Introduced self and role at [facility]. Both confirmed they are interested in TCU. ANNA explained TCU does have beds, but patient's insurance will have to approve. Patient's said patient has chemo next week will he be able to go. ANNA told them both, patient will not be able to get chemo while on TCU. ANNA let them know ANNA will contact Dr Cook's office. ANNA asked Devora in TCU to look at patient. ANNA called Dr Cook's office, but was only able to speak with scheduling. The communication clerk asked ANNA what this was regarding. ANNA explained patient is supposed to have chemo next week, but he will not be able to get it as [facility]. The communication clerk put ANNA on hold and notified Dr Cook's nurse. When the communication clerk got back on the phone she told ANNA she delivered the message and there is no reason the nurse needs to talk with ANNA. She made note of message. They will keep his appointment in case something changes. Devora said they can take patient as long as he is aware he cannot get chemo while there. ANNA will check back with patient and his to make sure they understand. ANNA can also offer to call other facilities that may allow patient to get his chemo. Plan: SNF pending insurance approval Keerthi DEGROOT
--- NOTE | 2022-03-09 10:52 | PN.HOSP_ITS ---
Subjective Subjective Doing well, no issues overnight. Feels little bit better now that his heart rate is under control. States that he was just recently diagnosed with esophageal cancer and he was getting his first round of chemotherapy now. Objective Data Objective Data Vital Signs: Vital Signs Temp Pulse Resp BP Pulse Ox O2 Del Method O2 Flow Rate 97.8 F 88 18 111/54 L 90 Room Air 3 03/09/22 08:20 03/09/22 09:47 03/09/22 08:28 03/09/22 09:47 03/09/22 08:28 03/09/22 09:43 03/09/22 08:28 Oxygen Flow Rate (L/min) [ 8 AMBULATING with Oxygen #3] Oxygen Flow Rate (L/min) [ 6 AMBULATING with Oxygen #2] Oxygen Flow Rate (L/min) [ 4 AMBULATING with Oxygen #1] Oxygen Flow Rate (L/min) [At 2 REST with Oxygen] Oxygen Flow Rate (L/min) 3 Oxygen Delivery Method Room Air Weight: 187 lb 6.287 oz Body Mass Index (BMI) 24.2 Intake & Output: Intake and Output for Last 24 Hours 03/08/22 03/09/22 03/10/22 03:59 03:59 03:59 Intake Total 3503.33 / 3503.33 1100 / 1100 Output Total 1350 / 1350 1700 / 1700 100 / 100 Balance 2153.33 / 2153.33 -600 / -600 -100 / -100 Medical Nutrition Assessment Dietitian: Malnutrition Criteria Met Start: 03/05/22 12:03 Freq: Status: Active Protocol: Document 03/05/22 12:06 SULEMAN (Rec: 03/05/22 12:06 SULEMAN [id number]) Nutrition Malnutrition Evidence of Malnutrition Exists Yes Malnutrition (severe): Chronic Evidenced By Suboptimal Energy Intake ( Severe),Weight Loss (Severe), Physical Changes (Moderate) Clinical Problem Chronic Disease or Condition Related Malnutrition Etiology related to esophageal cancer and issues w/ chewing/ swallowing making it difficult to meet est energy / protein needs Signs/Symptoms as evidenced by need for mech altered diet, 13.4% wt loss and consuming <50% of est nutritional needs x 6 mo. Pt has fat/muscle loss per NFPA Status Active Problem Recommendation Dietitian Recommendations/Changes Will order 120 ml ensure plus high protein 4x/day w/ medpass . Will continue regular diet - consistency per [employer] - d/t signs and symptoms of malnutrition. Will provide fortified foods w / all meals and ensure pudding or magic cup w/ lunch and dinner. Rec consider appetite stimulant. May need to consider enteral nutrition support if continued poor po intake and / or wt loss to help prevent additional decline in pt nutrition status - if in accordance w/ pt/family wishes Lab / Micro Data Result Diagrams: 03/09/22 04:35 03/09/22 04:35 Labs: Laboratory Results - last 24 hr 03/08/22 06:50: Magnesium 1.4 L 03/08/22 10:54: POC Glucose 101 03/08/22 16:56: POC Glucose 154 H 03/08/22 21:58: POC Glucose 149 H 03/09/22 04:35: WBC 6.3, RBC 3.68 L, Hgb 9.9 L, Hct 31.7 L, MCV 86.1, MCH 26.9 L , MCHC 31.2 L, RDW Std Deviation 72.5 H, RDW Coeff of Rey 23.0 H, Plt Count 138 L, MPV 9.0, Immature Gran % (Auto) 1.000 H, Neut % (Auto) 81.3 H, Lymph % (Auto) 7.8 L, [place] % (Auto) 9.3, Eos % (Auto) 0.3, Baso % (Auto) 0.3, Absolute Neuts (auto) 5.1, Absolute Lymphs (auto) 0.49 L, Nucleated RBC % 0, Differential Comment SCANNED, Anisocytosis 1+, Microcytosis RARE, Macrocytosis RARE 03/09/22 04:35: Sodium 135 L, Potassium 3.8, Chloride 99, Carbon Dioxide 28.0, Anion Gap 8, BUN 12, Creatinine 0.39 L, Estim Creat Clear Calc 56.95, Est GFR (MDRD) Af Amer 270, Est GFR (MDRD) Non-Af 223, BUN/Creatinine Ratio 30.5 H, Glucose 146 H, Calcium 7.5 L 03/09/22 06:09: POC Glucose 145 H Micro: Microbiology 03/04/22 14:41 Urine, Catheterized Urine Culture - Final Culture exhibits no growth. 03/04/22 15:18 Mucosa - Nose Respiratory Panel (PCR) - Final Rhinovirus 03/04/22 13:40 Blood Culture (Wb) - Anticubital Right Blood Culture - Preliminary No growth in 48 hours. 03/04/22 13:45 Blood Culture (Wb) - Port Blood Culture - Preliminary No growth in 48 hours. 03/04/22 14:41 Urine Catheter - Catheter Legionella Antigen - Final 03/04/22 14:41 Urine Catheter - Catheter Streptococcus pneumoniae Antigen (M - Final 03/04/22 13:45 Nasal Secretion SARS-CoV-2 & FLU Antigen (Rapid) - Final Physical Exam Narrative General: Alert, Oriented x3, Cooperative, No apparent distress HEENT: Atraumatic, PERRLA, EOMI, Normocephalic Oral: Moist Mucosa Neck: Supple, No JVD Lungs: Clear to auscultation, Normal air movement, No rhonchi, No wheeze, No rales Cardiovascular: Regular rate, regular rhythm, Normal S1, Normal S2, No murmurs Abdomen: Soft, Non Tender, Non-Distended, No Hepato-splenomegaly Extremities: No edema, Capillary Refill Less than 3 Seconds Skin: No rashes, No breakdown Musculoskeletal: No Tenderness to Palpation of Joints or Extremities Neurological: Cranial nerves II-XII grossly intact, Motor Exam 5/5 strength thr oughout, Sensory exam intact to light touch and pain Psych/Mental Status: Normal Affect, Appropriate Assessment & Plan Assessment/Plan (1) Aspiration pneumonia: (2) Atrial fibrillation with RVR: (3) Rhinovirus infection: PLAN: Plan 1. Acute hypoxic respiratory failure secondary to rhinovirus versus possible aspiration * Still requiring oxygen, he does not wear any oxygen at home * respiratory panel positive for rhinovirus, therefore antibiotics discontinued * Sputum cultures pending. Aspiration precautions. * Breathing treatments bronchodilators. Titrate oxygen to maintain saturation above 90%. 2. Paroxysmal A. fib/HTN * RVR has resolved * on PO amiodarone and metoprolol * Continue with Lasix * Echo with an EF of 55 to 60% with mild aortic stenosis * on eliquis 2.5mg bid * used to be on sotalol but was switched to metoprolol o/a of sotalol interacting with his chemotherapy drug. He says his heart rate hasnt been very well controlled since then. 3. History of esophageal cancer * Follows with Dr. Cook. * Was recently started on a new chemotherapy agent. * Has port in place. 4. Asthma: Not in exacerbation. Breathing treatments with bronchodilators. 5. Severe protein calorie malnutrition: Likely due to esophageal cancer. Nutrition on board. DVT: eliquis 2.5mg bid Charges/Coding Visit Charges Inpatient E&M: 41312 Subs Hosp L2
[2022-03-09] MEDS: Insulin Lispro 100 UNIT/ML INSULN.PEN SC (12:13)
[2022-03-09 12:35] LABS: Bedside Glucose 160 mg/dL (74-106)
--- NOTE | 2022-03-09 13:24 | CASEMGMT ---
ANNA received a call from [facility] with [employer] insurance. Patient was approved for [facility] facility. Authorization number is: [id number]. ANNA notified physician, patient, his , and Devora in TCU. Plan: d/c to [facility] TCU Keerthi DEGROOT
--- NOTE | 2022-03-09 13:47 | TREXTCAR_ITS ---
Diet Diet Order/Speech Therapy: 03/05/22 08:35 Diet: Regular - General Food consistency:: Easy to Chew Liquid Consistency:: Regular/Thin Type of Dietary Supplement:: fort foods; MC @L, EP @D Is pt able to select menu?: Yes Diet Comments: single sips,meds whole w/ thins,intermittent double swallow: MC w/L, EP w/D Routine Orders/Code Status Routine Lab Work: CBC and BMP Code Status: Full Code Wound(s) coccyx: Wound Type: Pressure Injury LFA: Wound Type: Abrasion Problem/Diagnosis (1) Aspiration pneumonia: Status: Acute Code(s): J69.0 - Pneumonitis due to inhalation of food and vomit (2) Atrial fibrillation with RVR: Status: Acute Code(s): I48.91 - Unspecified atrial fibrillation (3) Rhinovirus infection: Status: Acute Code(s): B34.8 - Other viral infections of unspecified site Plan 1. Acute hypoxic respiratory failure secondary to rhinovirus versus possible aspiration * Still requiring oxygen, he does not wear any oxygen at home * respiratory panel positive for rhinovirus, therefore antibiotics discontinued * Sputum cultures pending. Aspiration precautions. * Breathing treatments bronchodilators. Titrate oxygen to maintain saturation above 90%. 2. Paroxysmal A. fib/HTN * RVR has resolved * on PO amiodarone and metoprolol * Continue with Lasix * Echo with an EF of 55 to 60% with mild aortic stenosis * on eliquis 2.5mg bid * used to be on sotalol but was switched to metoprolol o/a of sotalol interacting with his chemotherapy drug. He says his heart rate hasnt been very well controlled since then. 3. History of esophageal cancer * Follows with Dr. Cook. * Was recently started on a new chemotherapy agent. * Has port in place. 4. Asthma: Not in exacerbation. Breathing treatments with bronchodilators. 5. Severe protein calorie malnutrition: Likely due to esophageal cancer. Nutrition on board. DVT: eliquis 2.5mg bid Allergies/Procedures Done in Hospital Allergies albuterol Allergy (Verified 03/04/22 13:01) Other CAN'T BREATHE amoxicillin Allergy (Verified 03/04/22 13:01) Other CANT BREATHE levofloxacin [From Levaquin] Allergy (Verified 03/04/22 13:01) Other CANT BREATHE moxifloxacin [From Avelox] Allergy (Verified 03/04/22 13:01) Other CANT BREATHE sulfamethoxazole [From Bactrim] Allergy (Verified 03/04/22 13:01) Rash trimethoprim [From Bactrim] Allergy (Verified 03/04/22 13:01) Rash Procedures: 2-D Echocardiogram Type of Care/Length of Stay Estimated LOS: Convalescent Care Less Than 30 days Type of Care Needed: Skilled Rehab Potential: Good Prognosis: Good Additional Orders/Day of Discharge Day of Discharge: 03/09/22 Dietary and Speech Recommendations Dietitian Recommendations/Changes: regular diet- texture/consistency per [employer]; fortified foods, ensure pudding w/ dinner, magic cup w/ lunch for additional calories if consumed. Refusing glucerna- will d/c. Discharge Plan Admission Admit Date/Time: 03/04/22 14:54 Attending Provider: Scooter Montano Primary Care Provider: Eran Moeller Consulting Providers: Kelly Phillips ; Ascencion Austin ; Lisa Garrett Discharge Orders/Prescriptions Prescriptions: New amiodarone 200 mg Tablet 200 mg PO BID Qty: 0 0RF Eliquis 2.5 mg Tablet 2.5 mg PO BID Qty: 0 0RF furosemide 40 mg Tablet 40 mg PO DAILY Qty: 0 0RF metoprolol tartrate 100 mg Tablet 100 mg PO BID Qty: 0 0RF budesonide 0.5 mg/2 mL Suspension For Nebulization 0.5 mg inhalation BID.RT Qty: 0 0RF oxycodone 5 mg Tablet 5 mg PO Q6H PRN PRN (Reason: Pain Score 4-10) 1 Days Qty: 0 0RF Continued aspirin 81 MG tablet 81 mg PO QHS simvastatin 40 MG tablet 40 mg PO DINNER cholecalciferol (vitamin D3) [Vitamin D3] 2,000 UNIT capsule 2,000 unit PO DAILY ofloxacin 0.3 % drops 1 drp EACH EYE QHS PRN (Reason: Eye Irritation) acetaminophen 650 mg Tablet Extended Release 1,300 mg PO Q8H pioglitazone-metformin 15-500 mg tablet 1 tab PO BID Discontinued metoprolol tartrate 50 mg tablet 50 mg PO BID Referrals / Follow Up: Eran Moeller DO [Primary Care Provider] - Disposition Disposition (needs filled in before D/C Order can be placed): [facility]
--- NOTE | 2022-03-09 13:52 | DS.PCM_ITS ---
Providers Date of Admission: 03/04/22 Primary Care Physician: Dr. Eran Moeller, DO Consultations 03/05/22 19:00 Consult: Cardiology Routine Consulting Provider: [facility] Austin Reason for Consult: a-fib RVR EMERGENT Consult: No MD Notified: Yes Date Notified: 03/06/22 Time Notified: 07:50 Method of Notification: Text Reason For Visit: HYPOXIA, ASP PNA, AFIB W/ RVR Diagnosis Discharge Diagnosis (1) Aspiration pneumonia: Status: Acute Code(s): J69.0 - Pneumonitis due to inhalation of food and vomit (2) Atrial fibrillation with RVR: Status: Acute Code(s): I48.91 - Unspecified atrial fibrillation (3) Rhinovirus infection: Status: Acute Code(s): B34.8 - Other viral infections of unspecified site Plan 1. Acute hypoxic respiratory failure secondary to rhinovirus versus possible aspiration * Still requiring oxygen, he does not wear any oxygen at home * respiratory panel positive for rhinovirus, therefore antibiotics discontinued * Sputum cultures pending. Aspiration precautions. * Breathing treatments bronchodilators. Titrate oxygen to maintain saturation above 90%. 2. Paroxysmal A. fib/HTN * RVR has resolved * on PO amiodarone and metoprolol * Continue with Lasix * Echo with an EF of 55 to 60% with mild aortic stenosis * on eliquis 2.5mg bid * used to be on sotalol but was switched to metoprolol o/a of sotalol interacting with his chemotherapy drug. He says his heart rate hasnt been very well controlled since then. 3. History of esophageal cancer * Follows with Dr. Cook. * Was recently started on a new chemotherapy agent. * Has port in place. 4. Asthma: Not in exacerbation. Breathing treatments with bronchodilators. 5. Severe protein calorie malnutrition: Likely due to esophageal cancer. Nutrition on board. DVT: eliquis 2.5mg bid Medications at Discharge Home Medications aspirin 81 mg tablet,delayed release 81 mg PO QHS HEALTH MAINTENANCE 11/08/16 cholecalciferol (vitamin D3) 50 mcg (2,000 unit) capsule (Vitamin D3) 2,000 unit PO DAILY SUPPLEMENT 11/08/16 simvastatin 40 mg tablet 40 mg PO DINNER CHOLESTEROL 11/08/16 ofloxacin 0.3 % eye drops 1 drp EACH EYE QHS PRN Eye Irritation 02/12/22 acetaminophen 650 mg tablet,extended release 1,300 mg PO Q8H pain 03/04/22 pioglitazone 15 mg-metformin 500 mg tablet 1 tab PO BID dm 03/04/22 amiodarone 200 mg tablet 200 mg PO BID #0 tabs 03/09/22 apixaban 2.5 mg tablet (Eliquis) 2.5 mg PO BID #0 tabs 03/09/22 budesonide 0.5 mg/2 mL suspension for nebulization 0.5 mg (2 mL) inhalation BID.RT #0 mL 03/09/22 furosemide 40 mg tablet 40 mg PO DAILY #0 tabs 03/09/22 metoprolol tartrate 100 mg tablet 100 mg PO BID #0 tabs 03/09/22 oxycodone 5 mg tablet 5 mg PO Q6H PRN PRN Pain Score 4-10 1 day #0 tabs 03/09/22 Hospital Course Operations None Procedures 2-D Echocardiogram Summary of Care Provided Minutes Spent on Discharge: 40 Hospital Course: Per HPI: The patient is an 82 y/o M w/ PMHx: Asthma, Chronic anemia/Fe deficiency anemia on IV Fe, HTN, HLD, PAF, Asthma, Diabetes mellitus type II, Esophageal CA s/p surgical intervention/stent placement with ongoing chemo therapy following w/ Dr. Cook, recent 02/12/22 admission for Aspiration PNA treatment who now re-presents to the [facility] ED on 03/04/22 with history of increased fatigue and malaise as well as confusion with recent transition to a newer chemotherapeutic agent 2 days prior to current presentation with specifically a chemotherapeutic pump that accessed through his port and ran until this morning with the pump removed at his visit today with his blood pressure noted to be lower there with 1 L of IV fluids administered and upon arriving back home inability to even get out of the house because of weakness with no recent fever or chills and ongoing significantly decreased oral intake prompting ED eval uation.? In regard to his confusion specifically she noted that some of the comments and statements he made earlier in the day were off and not at his baseline.? Of note patient at recent discharge was transitioned to room air and was 92 to 94% on room air at that time on 02/14/2022. Work-up in the ED included T1 100.3, heart rate initially 120 with increased up to 146, respiratory rate 14 with increase up to 32, initially 86% on room air with improvement to 95% on 3 L nasal cannula, CBC with WC 3.9, hemoglobin 10, MCV 86.3, platelet 179 with lymphopenia, coags unremarkable, CMP with sodium 133, chloride 96, BUN/creatinine 17/0.44, glucose 212, lactic acid 1.1, hepatic profile not marked appearing, chest x-ray with bibasilar pulmonary infiltrates worse on the right lung base with blunting of the left costophrenic angle, urinalysis/urine culture pending per ED, blood culture x2 pending per ED, rapid COVID antigen and influenza negative.? In the ED patient ministered normal saline bolus, Tylenol 1000 mg p.o. x1 as well as Rocephin and Flagyl for concern for recurrent aspiration pneumonia. Hospital Course: 1.? Acute hypoxic respiratory failure secondary to rhinovirus versus possible aspiration * Still requiring oxygen, he does not wear any oxygen at home weaning as able * respiratory panel positive for rhinovirus, therefore antibiotics discontinued * Aspiration precautions. Speech therapy recommends return to regular textures with thin liquids and distant supervision * Breathing treatments bronchodilators.? Titrate oxygen to maintain saturation above 90%. 2.? Paroxysmal A. fib/HTN * RVR has resolved * on PO amiodarone and metoprolol, can continue with his twice daily amiodarone for 7 days and then transition to daily dosing * Continue with Lasix * Echo with an EF of 55 to 60% with mild aortic stenosis * on eliquis 2.5mg bid * used to be on sotalol but was switched to metoprolol o/a of sotalol interacting with his chemotherapy drug. He says his heart rate hasnt been very well controlled since then. 3.? History of esophageal cancer * Follows with Dr. Cook.? * Was recently started on a new chemotherapy agent. * Has port in place. 4.? Asthma: Not in exacerbation.? Breathing treatments with bronchodilators. 5.? Severe protein calorie malnutrition: Likely due to esophageal cancer.? Nutrition on board. Disposition: Discussed with him the plan for discharge today to SNF, he expressed understanding of the risk benefits of going to SNF and would like to go today. Medical Records Data Medical Nutrition Assessment Dietitian: Malnutrition Criteria Met Start: 03/05/22 12:03 Freq: Status: Active Protocol: Document 03/05/22 12:06 [facility] (Rec: 03/05/22 12:06 [facility] [id number]) Nutrition Malnutrition Evidence of Malnutrition Exists Yes Malnutrition (severe): Chronic Evidenced By Suboptimal Energy Intake ( Severe),Weight Loss (Severe), Physical Changes (Moderate) Clinical Problem Chronic Disease or Condition Related Malnutrition Etiology related to esophageal cancer and issues w/ chewing/ swallowing making it difficult to meet est energy / protein needs Signs/Symptoms as evidenced by need for mech altered diet, 13.4% wt loss and consuming <50% of est nutritional needs x 6 mo. Pt has fat/muscle loss per NFPA Status Active Problem Recommendation Dietitian Recommendations/Changes Will order 120 ml ensure plus high protein 4x/day w/ medpass . Will continue regular diet - consistency per PHYS ASSISTANT - d/t signs and symptoms of malnutrition. Will provide fortified foods w / all meals and ensure pudding or magic cup w/ lunch and dinner. Rec consider appetite stimulant. May need to consider enteral nutrition support if continued poor po intake and / or wt loss to help prevent additional decline in pt nutrition status - if in accordance w/ pt/family wishes Weight / BMI Weight Weight: 187 lb 6.287 oz Body Mass Index (BMI) 24.2 ABG / Lab / Microbiology Data Result Diagrams: 03/09/22 04:35 03/09/22 04:35 Laboratory: Laboratory Results - last 24 hr 03/08/22 16:56: POC Glucose 154 H 03/08/22 21:58: POC Glucose 149 H 03/09/22 04:35: WBC 6.3, RBC 3.68 L, Hgb 9.9 L, Hct 31.7 L, MCV 86.1, MCH 26.9 L , MCHC 31.2 L, RDW Std Deviation 72.5 H, RDW Coeff of Rey 23.0 H, Plt Count 138 L, MPV 9.0, Immature Gran % (Auto) 1.000 H, Neut % (Auto) 81.3 H, Lymph % (Auto) 7.8 L, Cameron % (Auto) 9.3, Eos % (Auto) 0.3, Baso % (Auto) 0.3, Absolute Neuts (auto) 5.1, Absolute Lymphs (auto) 0.49 L, Nucleated RBC % 0, Differential Comment SCANNED, Anisocytosis 1+, Microcytosis RARE, Macrocytosis RARE 03/09/22 04:35: Sodium 135 L, Potassium 3.8, Chloride 99, Carbon Dioxide 28.0, Anion Gap 8, BUN 12, Creatinine 0.39 L, Estim Creat Clear Calc 56.95, Est GFR (MDRD) Af Amer 270, Est GFR (MDRD) Non-Af 223, BUN/Creatinine Ratio 30.5 H, Glucose 146 H, Calcium 7.5 L 03/09/22 06:09: POC Glucose 145 H 03/09/22 12:12: POC Glucose 160 H Microbiology: Microbiology 03/04/22 14:41 Urine, Catheterized Urine Culture - Final Culture exhibits no growth. 03/04/22 15:18 Mucosa - Nose Respiratory Panel (PCR) - Final Rhinovirus 03/04/22 13:40 Blood Culture (Wb) - Anticubital Right Blood Culture - Preliminary No growth in 48 hours. 03/04/22 13:45 Blood Culture (Wb) - Port Blood Culture - Preliminary No growth in 48 hours. 03/04/22 14:41 Urine Catheter - Catheter Legionella Antigen - Final 03/04/22 14:41 Urine Catheter - Catheter Streptococcus pneumoniae Antigen (M - Final 03/04/22 13:45 Nasal Secretion SARS-CoV-2 & FLU Antigen (Rapid) - Final Meaningful Use Info Meaningful Use Diagnoses (Choose all that apply): None applicable Discharge Plan Admission Admit Date/Time: 03/04/22 14:54 Attending Provider: Scooter Montano Primary Care Provider: Eran Moeller Consulting Providers: Kelly Phillips ; [facility] Austin ; Lisa Garrett Discharge Orders/Prescriptions Prescriptions: New amiodarone 200 mg Tablet 200 mg PO BID Qty: 0 0RF Eliquis 2.5 mg Tablet 2.5 mg PO BID Qty: 0 0RF furosemide 40 mg Tablet 40 mg PO DAILY Qty: 0 0RF metoprolol tartrate 100 mg Tablet 100 mg PO BID Qty: 0 0RF budesonide 0.5 mg/2 mL Suspension For Nebulization 0.5 mg inhalation BID.RT Qty: 0 0RF oxycodone 5 mg Tablet 5 mg PO Q6H PRN PRN (Reason: Pain Score 4-10) 1 Days Qty: 0 0RF Continued aspirin 81 MG tablet 81 mg PO QHS simvastatin 40 MG tablet 40 mg PO DINNER cholecalciferol (vitamin D3) [Vitamin D3] 2,000 UNIT capsule 2,000 unit PO DAILY ofloxacin 0.3 % drops 1 drp EACH EYE QHS PRN (Reason: Eye Irritation) acetaminophen 650 mg Tablet Extended Release 1,300 mg PO Q8H pioglitazone-metformin 15-500 mg tablet 1 tab PO BID Discontinued metoprolol tartrate 50 mg tablet 50 mg PO BID Referrals / Follow Up: Eran Moeller DO [Primary Care Provider] - Disposition Disposition (needs filled in before D/C Order can be placed): [facility] Facility Charges/Coding Visit Charges Inpatient E&M: 16620 Disch Hosp
[2022-03-09] MEDS: 0.9% Saline Lock 10 ML Syringe IV (15:46)
--- NOTE | 2022-03-09 15:50 | CASEMGMT ---
SW spoke with patient and his letting them know patient was approved and he will be going to [facility] TCU today. Plan: d/c to [facility] TCU under skilled level of care. Keerthi DEGROOT
== END 2022-03-09 16:13 | DRG 177 ==
LOC: ED 15:04 → PCU 15:18
PROVIDERS: Student in an Organized Health Care Education/Training Program; Admitting Provider Family Medicine; Emergency Provider Emergency Medicine; Visit Provider Family Medicine
DX: J69.0 Pneumonitis due to inhalation of food and vomit (principal); E43 Unspecified severe protein-calorie malnutrition; J96.01 Acute respiratory failure with hypoxia; I50.33 Acute on chronic diastolic (congestive) heart failure; C15.9 Malignant neoplasm of esophagus, unspecified; E11.9 Type 2 diabetes mellitus without complications; D50.9 Iron deficiency anemia, unspecified; B97.89 Other viral agents as the cause of diseases classified elsewhere; I48.0 Paroxysmal atrial fibrillation; I11.0 Hypertensive heart disease with heart failure; E78.5 Hyperlipidemia, unspecified; J45.909 Unspecified asthma, uncomplicated; I35.0 Nonrheumatic aortic (valve) stenosis; Z68.24 Body mass index [BMI] 24.0-24.9, adult; Z79.2 Long term (current) use of antibiotics; Z79.01 Long term (current) use of anticoagulants; Z79.84 Long term (current) use of oral hypoglycemic drugs; Z79.82 Long term (current) use of aspirin; Z92.21 Personal history of antineoplastic chemotherapy; Z20.822 Contact with and (suspected) exposure to COVID-19
CPT/HCPCS: 36415; 36591; 71045; 80048; 80053; 80202; 81001; 82962; 83605; 83735; 84100; 84443; 84484; 85025; 85610; 85730; 87040; 87086; 87426; 87428; 87449; 87633; 87641; 92507; 92526; 92610; 93005; 93306; 94640; 94762; 97110; 97162; 97166; 97530; 97535; 97802; 97803; 99251; 99284; J7030; J7040; J7050; Q9957; A4216; G0463; J1940

== ENCOUNTER 2022-03-09 16:30 | Inpatient (IN) | payer MEDICARE, SELFPAY ==
[2022-03-09 16:58] VITALS: BP 93/54; PULSE 91; RESP 18; TEMP 36.8; O2SAT 96; BMI 26.9
[2022-03-09 19:20] VITALS: PULSE 79; RESP 18; O2SAT 98
[2022-03-09] MEDS: Budesonide Respules 0.5 MG/2 ML AMPUL.NEB. INHALATION (19:20)
--- NOTE | 2022-03-09 20:02 | HP.PCM_ITS ---
HPI - General General Date of Admission: 03/09/22 Date of Service: 03/09/22 Chief Complaint: Here for rehab. HPI Narrative 03/04/2022 LUKASZ PIERRE, is a 82 Male who presents to [facility] Emergency Department with confusion. 03/04/2022 EKG atrial fibrillation with rapid ventricular response with premature ventricular or aberrantly conducted complexes, low voltage qrs, inferior infarct, age undetermined. Confusion, weakness, history of esophageal cancer, sees Dr. Cook. Recent port placement, started chemo 2 days ago. Saw Oncology, blood pressure low, given normal saline 1 liter. Too weak to get ouf of car, poor intake. Heart rate 112 to 140, IV fluid bolus given. Chest X-ray showed bilateral infiltrates, pancultured. Ceftriaxone, Metronidazole given for pneumonia. 03/04/2022 Admit to Hospital. Ceftriaxone, Metronidazole, Vancomycin given for aspiration pneumonia. PT/OT/ST for debility. Metoprolol given for atrial fibrillation with rapid ventricular response. 03/04/2022 Echo normal left ventricular systolic function. EF 55-60%. 03/05/2022 Feels better, oxygen 2 liters per nasal cannula. Ceftriaxone, Metronidazole, Vancomycin given for aspiration pneumonia. Atrial fibrillation with rapid ventricular response resolved, Troponins negative. 03/06/2022 Amiodarone drip, Digoxin 250mcg x 1 dose for atrial fibrillation with rapid ventricular response. 03/06/2022 Tachycardia. Metoprolol, Amiodarone drip, Eliquis 2.5mg twice daily for atrial fibrillation. 03/07/2022 Atrial fibrillation with rapid ventricular response resolved. 03/08/2022 Feels better, oxygen 2 liters per nasal cannula. Respiratory panel positive rhinovirus. 03/09/2022 Antibiotics stopped due to rhinovirus pneumonia. Sputum culture pending. Metoprolol, amiodarone, eliquis for atrial fibrillation. 03/09/2022 Admit to TCU with debility, here for rehabilitation, strengthening, prior to discharge home with . [facility] Medical History Aspiration pneumonia Asthma Chronic anemia Diabetes mellitus, type 2 Esophageal carcinoma HLD (hyperlipidemia) HTN (hypertension) Iron deficiency anemia PAF (paroxysmal atrial fibrillation) Home Medications aspirin 81 mg tablet,delayed release 81 mg PO QHS HEALTH MAINTENANCE 11/08/16 [History Last Taken 03/03/22] cholecalciferol (vitamin D3) 50 mcg (2,000 unit) capsule (Vitamin D3) 2,000 unit PO DAILY SUPPLEMENT 11/08/16 [History Last Taken 1 Month Ago ~02/01/22] simvastatin 40 mg tablet 40 mg PO DINNER CHOLESTEROL 11/08/16 [History Last Taken 03/03/22] ofloxacin 0.3 % eye drops 1 drp EACH EYE QHS PRN Eye Irritation 02/12/22 [History Last Taken 03/02/22] acetaminophen 650 mg tablet,extended release 1,300 mg PO Q8H pain 03/04/22 [History Last Taken 03/04/22 07:30] pioglitazone 15 mg-metformin 500 mg tablet 1 tab PO BID dm 03/04/22 [History Last Taken 03/03/22] amiodarone 200 mg tablet 200 mg PO BID heart 03/09/22 [History Last Taken Unknown] amiodarone 200 mg tablet 200 mg PO DAILY heart 03/09/22 [History Last Taken Unknown] apixaban 2.5 mg tablet (Eliquis) 2.5 mg PO BID blood thinner 03/09/22 [History Last Taken Unknown] budesonide 0.5 mg/2 mL suspension for nebulization 0.5 mg inhalation BID.RT respiratory 03/09/22 [History Last Taken Unknown] furosemide 40 mg tablet 40 mg PO DAILY fluid pill 03/09/22 [History Last Taken Unknown] metoprolol tartrate 100 mg tablet 100 mg PO BID heart 03/09/22 [History Last Taken Unknown] oxycodone 5 mg tablet 5 mg PO Q6H PRN PRN Pain Score 4-10 1 day #0 tabs 03/09/22 [Rx Last Taken Unknown] Allergy/AdvReac Type Severity Reaction Status Date / Time albuterol Allergy Other Verified 03/04/22 13:01 amoxicillin Allergy Other Verified 03/04/22 13:01 levofloxacin [From Levaquin] Allergy Other Verified 03/04/22 13:01 moxifloxacin [From Avelox] Allergy Other Verified 03/04/22 13:01 sulfamethoxazole Allergy Rash Verified 03/04/22 13:01 [From Bactrim] trimethoprim [From Bactrim] Allergy Rash Verified 03/04/22 13:01 Family History Father Hypertension Diabetes Heart disease CAD (coronary artery disease) Sister Hypertension Diabetes Mother Hypertension Surgical History H/O sinus surgery History of esophageal surgery Status post myringotomy with tube placement of both ears Social History household members: spouse Smoking Status: Never smoker alcohol intake: current alcohol intake frequency: a few times a month substance use type: does not use ROS Constitutional Constitutional: Denies chills, fever(s) or weight gain ENT HEENT: Denies headache(s), nasal congestion or nasal discharge Cardiovascular Cardiovascular: Denies chest pain or palpitations Respiratory/Chest Respiratory/Chest: Denies cough, excessive phlegm production or shortness of breath with exertion Gastrointestinal Gastrointestinal: Denies abdominal pain, nausea or vomiting Genitourinary Genitourinary: Denies dysuria Musculoskeletal Musculoskeletal: Denies joint pain or joint swelling Integumentary Integumentary: Denies rash or wounds Neurologic Neurologic: Denies focal weakness, numbness or tingling Psychiatric Psychiatric: Denies anxiety, auditory hallucinations, depression, homicidal ideation or suicidal ideation Vital Signs Vital Signs Vital Signs: 03/09/22 16:58 Temperature 98.2 F Temperature Source Temporal Pulse Rate 91 Respiratory Rate 18 Blood Pressure 93/54 L Blood Pressure Mean 67 Blood Pressure Source Monitor Blood Pressure Position Sitting Blood Pressure Location Right Arm Pulse Ox 96 Oxygen Delivery Method Nasal Cannula Oxygen Flow Rate (L/min) 3 Physical Exam Const alert General Appearance: cooperative HEENT normocephalic Eyes PERRL and EOMs intact bilaterally Neck supple, no JVD and no carotid bruits Chest Chest Narrative: Left upper chest port. Resp normal respiratory effort, normal air movement and clear to auscultation bilaterally Cardio regular rate and regular rhythm GI normal to inspection, nondistended, normoactive bowel sounds, non-tender and non-distended Extremity normal capillary refill General Extremity: Negative for edema Skin no rashes or lesions noted General Skin Exam: no breakdown Psych affect normal Appearance: appropriate Assessment & Plan Assessment/Plan (1) Debility: (2) Rhinovirus infection: (3) Atrial fibrillation with RVR: (4) Acute respiratory failure with hypoxia: (5) Esophageal cancer: (6) Diabetes mellitus: (7) Hypertension: (8) Hyperlipidemia: (9) Asthma: PLAN: Plan 82 year old male with below past medical history significant for esophageal cancer, hospitalized for acute respiratory failure with hypoxia secondary to rhinovirus, complicated by atrial fibrillation with rapid ventricular response, admitted to TCU with debility, here for rehabilitation, strengthening, prior to discharge home with . * Debility - PT/OT. * Pain - Tylenol 1300mg q8, Oxycodone 5mg q4h prn pain (4-10). * Bowel - senna/colace 2 tablets bid, MOM 30ml daily prn. * Adult immunization - Administer pneumonia vaccine, covid19 vaccine, flu vaccine as appropriate. * DVT prophylaxis - Not necessary, already on Eliquis. * Atrial fibrillation - Metoprolol 100mg bid, Amiodarone 200mg bid thru 03/16/2022, then 200mg daily, Eliquis 2.5mg bid. * Hyperlipidemia - Atorvastatin 20mg with dinner. * Asthma Budesonide 0.5mg inhaled bid. * Edema - Furosemide 40mg daily. * Skin irritation - Calmoseptine topical bid, Petrolatum topical bid. * Diabetes Mellitus II - Metformin 500mg bidcm, Geovanni 15mg bidcm. * Tinea Corporis - Nystatin powder topical bid. * Conjunctivitis - Ofloxacin 1gtt ou qhs. * Vitamin D deficiency - D3 50mcg daily. * Esophageal cancer - Resume treatment with Dr. Cook/Dr. Billings once discharged from TCU.
--- NOTE | 2022-03-09 20:35 | NURSING ---
Admission papers signed by patient with Daughter present. Code status discussed and patient educated. Patient chose DNRCC-A, no intubation. Booklet also given to daughter.
[2022-03-09] MEDS: oxyCODONE 5 MG Tablet PO (20:59)
[2022-03-09 21:00] VITALS: BP 131/65; PULSE 88; RESP 18; TEMP 36.8; O2SAT 94
[2022-03-09] MEDS: Metoprolol Tartrate 100 MG Tablet PO (21:00)
[2022-03-09] MEDS: Amiodarone 200 MG Tablet PO (21:00)
[2022-03-09] MEDS: Acetaminophen 325 MG Tablet 1300 MG PO (21:01)
[2022-03-09] MEDS: APIXABAN 2.5 MG TABLET PO (21:14)
[2022-03-09] MEDS: Menthol/Lanolin/Calamine/Znox 113 GM Tube 1 APPLIC TOPICAL (21:23)
[2022-03-09] MEDS: Nystatin Powder 15gm Bottle 1 APPLIC TOPICAL (21:23)
[2022-03-09] MEDS: Petrolatum 33% Tube 1 APPLIC TOPICAL (23:22)
[2022-03-09] MEDS: OFLOXACIN 0.3% 1 DRP OTIC (23:23)
[2022-03-09] MEDS: CLARIFY ORDER NOTE (23:27)
[2022-03-10] MEDS: oxyCODONE 5 MG Tablet PO ×2 (02:04→06:16)
[2022-03-10 05:00] VITALS: BP 104/53; PULSE 99; RESP 18; TEMP 36.6; O2SAT 94
[2022-03-10 06:14] VITALS: BP 104/53; PULSE 99
[2022-03-10] MEDS: Acetaminophen 325 MG Tablet 1300 MG PO ×3 (06:14→21:11)
[2022-03-10] MEDS: Furosemide 40 MG Tablet PO (06:14)
[2022-03-10] MEDS: Metoprolol Tartrate 100 MG Tablet PO ×2 (06:14→17:58)
[2022-03-10] MEDS: Cholecalciferol (VIT D3) 25 MCG TABLET (1,000 UNITS) 50 MCG PO (06:14)
[2022-03-10] MEDS: Amiodarone 200 MG Tablet PO ×2 (06:16→17:59)
[2022-03-10] MEDS: APIXABAN 2.5 MG TABLET PO ×2 (06:16→17:59)
[2022-03-10 07:00] VITALS: PULSE 94; RESP 18; O2SAT 98
[2022-03-10] MEDS: Budesonide Respules 0.5 MG/2 ML AMPUL.NEB. INHALATION ×2 (07:00→19:55)
[2022-03-10 07:41] LABS: Absolute Lymphocyte Count 0.57 X10^3/uL (0.83-4.51); Absolute Neutrophil Count 4.1 X10^3/uL (2.0-7.7); Basophil# 0.02 X10^3/uL; Basophil% 0.4 % (0-1); Eosinophil# 0.01 X10^3/uL; Eosinophils% 0.2 % (0-5); Hematocrit 28.6 % (40-54); Hemoglobin 8.9 g/dL (13.0-16.5); Lymphocyte # 0.57 X10^3/ul (0.83-4.51); Lymphocyte % 10.8 % (19-41); Mean Corp Hgb Conc 31.1 g/dL (32-36); Mean Corpuscular Hgb 26.8 pg (27.0-32.0); Mean Corpuscular Volume 86.1 fL (80-94); Mean Platelet Vol. 9.2 fl (6.2-12.0); Monocyte% 11.3 % (0-10); NRBC Flagged by Analyzer 0 % (0-5); Neutrophil # 4.07 X10^3/uL (2.7-7.7); Neutrophil % 76.7 % (47-70); POSITIVE DIFFERENTIAL YES; POSITIVE MORPHOLOGY YES; Platelet Count 135 K/mm3 (150-450); RBC Distribution Width CV 22.5 % (11.6-14.6); Red Blood Count 3.32 M/mm3 (4.6-6.2); White Blood Count 5.3 K/mm3 (4.4-11.0)
[2022-03-10 07:43] LABS: Differential Indicated SCAN CRITERIA MET
[2022-03-10 08:16] LABS: Anion Gap 7 (5-15); BUN 13 mg/dL (7-18); BUN/Creat Ratio 34.5 RATIO (10-20); Calcium,Total 7.8 mg/dL (8.5-10.1); Chloride 99 mmol/L (98-107); Creatinine, Serum 0.38 mg/dL (0.70-1.30); EST Glomerular Filtration Rate 234 mL/min (>60); Est Glom Filt Rate - Afr Amer 284 mL/min (>60); Estimated Creatinine Clearance 56.95 ml/min; Glucose 166 mg/dL (74-106); Potassium 3.8 mmol/L (3.5-5.1); Sodium Level 134 mmol/L (136-145)
[2022-03-10 08:40] LABS: Anisocytosis 2+; Hypochromasia 1+
[2022-03-10 08:41] LABS: Reactive Lymphocyte 1+
[2022-03-10] MEDS: metFORMIN HCl 500 MG Tablet PO ×2 (09:05→17:59)
[2022-03-10] MEDS: Pioglitazone Hydrochloride 15 MG Tablet PO ×2 (09:05→17:59)
[2022-03-10] MEDS: Petrolatum 33% Tube 1 APPLIC TOPICAL ×2 (09:06→21:21)
[2022-03-10] MEDS: Menthol/Lanolin/Calamine/Znox 113 GM Tube 1 APPLIC TOPICAL ×2 (09:06→21:11)
[2022-03-10] MEDS: Nystatin Powder 15gm Bottle 1 APPLIC TOPICAL ×2 (09:07→21:20)
[2022-03-10] MEDS: Tuberculin,Purif.prot.deriv. 50 TU/ML Vial 0.1 ML ID (11:07)
[2022-03-10] MEDS: FLU VACC QS2022-23(6MOS UP)/PF 60 MCG/0.5 ML SYRINGE IM (11:10)
--- NOTE | 2022-03-10 13:08 | NURSING ---
Railroad Track Inspector Note; Activity Asset: Complete
[2022-03-10 15:15] VITALS: BP 103/63; PULSE 89; RESP 18; TEMP 36.4; O2SAT 93
[2022-03-10 17:58] VITALS: PULSE 127
[2022-03-10] MEDS: Ensure Plus High Protein 120 ML LIQUID PO ×2 (17:58→21:10)
[2022-03-10] MEDS: Senna/Docusate Sodium 1 Tablet 2 TABLET PO (17:58)
[2022-03-10] MEDS: Atorvastatin Calcium 20 MG Tablet PO (17:59)
[2022-03-11 05:00] VITALS: BP 113/60; PULSE 87; RESP 16; TEMP 36.6; O2SAT 95
[2022-03-11] MEDS: Amiodarone 200 MG Tablet PO ×2 (06:15→17:46)
[2022-03-11] MEDS: APIXABAN 2.5 MG TABLET PO (06:15)
[2022-03-11] MEDS: Furosemide 40 MG Tablet PO ×2 (06:16→22:11)
[2022-03-11] MEDS: Acetaminophen 325 MG Tablet 1300 MG PO ×3 (06:16→22:11)
[2022-03-11 06:17] VITALS: BP 113/60; PULSE 87
[2022-03-11] MEDS: Metoprolol Tartrate 100 MG Tablet PO ×2 (06:17→17:55)
[2022-03-11] MEDS: Cholecalciferol (VIT D3) 25 MCG TABLET (1,000 UNITS) 50 MCG PO (06:17)
[2022-03-11] MEDS: CLARIFY ORDER NOTE (07:31)
--- NOTE | 2022-03-11 07:35 | NURSING ---
Patient up in chair, states he feels SOB when he lays down in bed. Daughter at bedside. Very involved and concerned about all aspects of care.
[2022-03-11 07:40] VITALS: PULSE 90; RESP 20; O2SAT 94
[2022-03-11] MEDS: Budesonide Respules 0.5 MG/2 ML AMPUL.NEB. INHALATION ×2 (07:40→19:30)
[2022-03-11] MEDS: Ascorbic Acid 500 MG Tablet PO (08:44)
[2022-03-11] MEDS: metFORMIN HCl 500 MG Tablet PO ×2 (08:44→17:45)
[2022-03-11] MEDS: Pioglitazone Hydrochloride 15 MG Tablet PO ×2 (08:45→17:46)
[2022-03-11] MEDS: Iron Polysaccharide Complex 150 MG CAPSULE PO (08:45)
[2022-03-11] MEDS: Clotrimazole 1 APPLIC Tube TOPICAL ×2 (08:46→17:50)
[2022-03-11] MEDS: Nystatin Powder 15gm Bottle 1 APPLIC TOPICAL ×2 (08:47→22:13)
[2022-03-11] MEDS: Petrolatum 33% Tube 1 APPLIC TOPICAL ×2 (08:47→22:13)
[2022-03-11] MEDS: Menthol/Lanolin/Calamine/Znox 113 GM Tube 1 APPLIC TOPICAL ×2 (08:48→22:13)
--- NOTE | 2022-03-11 11:14 | CASEMGMT ---
Addendum entered by Sera Velasquez 03/11/22 13:23: requesting palliative consult for pt. Order entered and emailed referral to [facility] Palliative Original Note: Social Work Met with patient to complete initial assessment. Introduced self and role. Verified contacts. Discussed code status and MOLST form. Pt confirms DNR-CCA, no intubation. DNR form signed. Purple bracelet needs placed. Nursing notified. MOLST completed, placed in folder. Educated to [facility] insurance with NRD 03/16 and continued stay is not guaranteed. Pt states DC goal is to return home at [facility] on 03/16 to begin chemo treatments. SW offered to assist with DC when pt is ready. SW informed [facility] nurse to contact family and schedule POC prior to 03/16. SW to continue to follow. TYSON Jordan w
[2022-03-11] MEDS: traMADol 50 MG Tablet PO (14:16)
[2022-03-11 14:44] LABS: BNP,B-Type NATRIURETIC PEPTIDE 157.5 pg/mL (0-100)
[2022-03-11 15:48] VITALS: BP 118/61; PULSE 89; RESP 16; TEMP 36.2; O2SAT 93
[2022-03-11] MEDS: Metoclopramide 5 MG TABLET PO (16:01)
[2022-03-11] MEDS: Atorvastatin Calcium 20 MG Tablet PO (17:45)
[2022-03-11] MEDS: Ensure Plus High Protein 120 ML LIQUID PO (17:46)
[2022-03-11 17:55] VITALS: BP 120/58; PULSE 92
--- NOTE | 2022-03-11 20:20 | RAD_ITS ---
INDICATION: Orthopnea, weight gain. EXAMINATION/TECHNIQUE: X-RAY - XR Chest 2 Views COMPARISON: 03/04/2022 and 02/12/2022 chest x-rays. FINDINGS: LINES/DEVICES: Tunneled chest port with access port on the left chest following the expected course of the left internal jugular vein. The tip is in the distal right atrium. There is a esophageal stent through the left diaphragmatic hiatus. LUNGS: Bilateral pleural effusions are present, right greater than left. There is some mild overlying airspace disease which may represent atelectasis and/or alveolar filling process to include pneumonia. Upper lungs are clear. MEDIASTINUM AND CARDIOVASCULAR STRUCTURES: Normal size and contour of the cardiomediastinal silhouette. No evidence of pulmonary vascular congestion. BONES AND SOFT TISSUES: No fracture or focal osseous lesion. Minimally exaggerated thoracic kyphosis. There are anterior thoracic spine bridging osteophytes. No severe degenerative endplate changes. RAD/Chest PA and Lateral IMPRESSION: 1. Bilateral pleural effusions, right greater than left with overlying airspace disease which may represent atelectasis and/or alveolar filling process to include pneumonia. Electronically Signed: Ivan Buitrago DO at 20:40 EST ,
[2022-03-11 21:35] VITALS: PULSE 100; RESP 16; O2SAT 97
--- NOTE | 2022-03-11 21:42 | NURSING ---
Dr. Jones updated on chest X-ray, lung sounds, and scant amount of fluid seeping from BLE. 1x dose of Lasix 40mg ordered.
--- NOTE | 2022-03-11 22:35 | NURSING ---
Pt elevated BLE in recliner for < 30 minutes. This nurse encouraged and educated pt on importance of elevating BLE. Ineffective, pt denies to elevate BLE again.
[2022-03-12] VITALS (7 sets, daily range): BP systolic 98–105; BP diastolic 50–52; PULSE 82–98; RESP 16–20; TEMP 36–36.7; O2SAT 94–98
[2022-03-12] MEDS: Iron Polysaccharide Complex 150 MG CAPSULE PO (04:55)
[2022-03-12] MEDS: Cholecalciferol (VIT D3) 25 MCG TABLET (1,000 UNITS) 50 MCG PO (04:55)
[2022-03-12] MEDS: Amiodarone 200 MG Tablet PO ×2 (04:58→17:53)
[2022-03-12] MEDS: Furosemide 40 MG Tablet PO (04:58)
[2022-03-12] MEDS: Metoprolol Tartrate 100 MG Tablet PO ×2 (04:58→17:53)
[2022-03-12] MEDS: Clotrimazole 1 APPLIC Tube TOPICAL ×2 (04:59→17:54)
[2022-03-12] MEDS: Acetaminophen 325 MG Tablet 1300 MG PO ×3 (06:05→22:24)
[2022-03-12] MEDS: Budesonide Respules 0.5 MG/2 ML AMPUL.NEB. INHALATION ×2 (06:50→21:30)
--- NOTE | 2022-03-12 07:10 | NURSING ---
Pt noted to have difficulty swallowing pills this AM. Requests that pills now be put in .
[2022-03-12 07:41] LABS: Bedside Glucose 142 mg/dL (74-106)
[2022-03-12] MEDS: Menthol/Lanolin/Calamine/Znox 113 GM Tube 1 APPLIC TOPICAL (09:32)
[2022-03-12] MEDS: Ascorbic Acid 500 MG Tablet PO (09:32)
[2022-03-12] MEDS: metFORMIN HCl 500 MG Tablet PO ×2 (09:32→17:53)
[2022-03-12] MEDS: Pioglitazone Hydrochloride 15 MG Tablet PO ×2 (09:32→17:53)
[2022-03-12] MEDS: Potassium Chloride Oral Tablet 20 MEQ PO (09:33)
[2022-03-12] MEDS: Nystatin Powder 15gm Bottle 1 APPLIC TOPICAL (09:34)
[2022-03-12] MEDS: Petrolatum 33% Tube 1 APPLIC TOPICAL (09:35)
[2022-03-12] MEDS: traMADol 50 MG Tablet PO (10:39)
[2022-03-12] MEDS: Metoclopramide 5 MG TABLET PO ×2 (12:27→17:53)
[2022-03-12] MEDS: Atorvastatin Calcium 20 MG Tablet PO (17:54)
--- NOTE | 2022-03-12 21:50 | NURSING ---
Pt's daughter, is in pt's room. Informed of visiting hours noted [facility] level [facility]. She notes that she and her sister were allowed to stay on the acute side of the hospital until 11pm. Discussed [facility] regulations are carried out on TCU and not the acute units. She has been going in and out of pt's room on her cell phone. Asha has several questions and this informed her that she is not listed as a contact. She is questioning if urine specimen was completed that the family requested earlier in the day due to some confusion. Asha then called her mother to speak with this nurse. Spoke w/ spouse who provided some updates on the pt's condition earlier today. She is also inquiring about the urine specimen. Informed her a urine specimen has not been obtained and staff does not have an order for a specimen. She thinks a specimen should be collected tomorrow to determine if he has a UTI. Spoke w/ pt who was slightly drowsy but oriented x 3. Speech is clear and answers questions appropriately. Elects to stay in chair for comfort as he reports trying to sleep in bed last night and was not comfortable.
--- NOTE | 2022-03-12 23:15 | NURSING ---
Daughter, Darling, calls the unit to speak w/ this nurse. Informed Darling that she is not listed as a contact and information provided per this nurse will be very limited. Darling notes that she spoke w/ someone to be added to his list. This nurse will contact Sera CASTILLO, to update. Darling discusses pt's struggles with pain today and that Tramadol was not administered per dayshift nurse due to concerns with low blood pressure. She believes he did not have Tramadol for approximately 20 hours and questions if this may be the reason for his increased level of pain. Informed Darling if a medication if ordered as PRN (Tramadol is ordered PRN for pt), the pt or surrogate needs to ask for the medication. This nurse will plan to reassess pt after phone conversation. She briefly discussed the new medication for acid reflux and thinks he may benefit from the medication more often. Discussed EPS associated w/ the medication and question if the pt is able to metabolize and/or excrete the medications. Darling updates this nurse on scheduled meeting with palliative care for Monday. This nurse is agreeable with meeting as Darling almost questions if this is the right choice for pt. This nurse explained the concept of both hospice and palliative care. Darling thinks this nurse is suggesting pt enroll in hospice. Clarified with Darling this nurse is not suggesting either service, but simply explaining the difference between the two benefits. Much emotional support and reassurance provided throughout the conversation.
[2022-03-13] VITALS (7 sets, daily range): BP systolic 92–132; BP diastolic 46–67; PULSE 77–87; RESP 16–18; TEMP 36.2–36.4; O2SAT 95–99
[2022-03-13] MEDS: traMADol 50 MG Tablet PO ×3 (00:07→15:26)
--- NOTE | 2022-03-13 00:30 | NURSING ---
Daughter, Asha, is still present and has been staying as she is concerned the pt will get out of the chair on his own. Offered personal alarm and room camcera to be activated to ensure safety and she is agreeable. Asha left unit with security management specialist.
[2022-03-13] MEDS: Nystatin Powder 15gm Bottle 1 APPLIC TOPICAL (01:19)
[2022-03-13] MEDS: Menthol/Lanolin/Calamine/Znox 113 GM Tube 1 APPLIC TOPICAL (01:19)
[2022-03-13] MEDS: Ensure Plus High Protein 120 ML LIQUID PO ×2 (05:53→17:59)
[2022-03-13] MEDS: Acetaminophen 325 MG Tablet 1300 MG PO (05:55)
[2022-03-13] MEDS: Iron Polysaccharide Complex 150 MG CAPSULE PO (05:57)
[2022-03-13] MEDS: Cholecalciferol (VIT D3) 25 MCG TABLET (1,000 UNITS) 50 MCG PO (05:57)
[2022-03-13] MEDS: Senna/Docusate Sodium 1 Tablet 2 TABLET PO (05:58)
[2022-03-13] MEDS: Furosemide 40 MG Tablet PO (06:02)
[2022-03-13] MEDS: Clotrimazole 1 APPLIC Tube TOPICAL ×2 (06:03→18:34)
[2022-03-13 06:30] LABS: Bedside Glucose 182 mg/dL (74-106)
[2022-03-13] MEDS: Budesonide Respules 0.5 MG/2 ML AMPUL.NEB. INHALATION (06:53)
[2022-03-13 07:10] LABS: Hematocrit 18.7 % (40-54)
--- NOTE | 2022-03-13 07:28 | NURSING ---
Lab called with critical HBG 6.0. Dr. Jones paged. New orders received. Type and cross 2 units per protocol with lasix in between. H&H 24 hours after.
[2022-03-13 07:31] LABS: Anion Gap 11 (5-15); BUN 38 mg/dL (7-18); BUN/Creat Ratio 49.4 RATIO (10-20); Calcium,Total 8.1 mg/dL (8.5-10.1); Chloride 93 mmol/L (98-107); Creatinine, Serum 0.77 mg/dL (0.70-1.30); EST Glomerular Filtration Rate 103 mL/min (>60); Est Glom Filt Rate - Afr Amer 125 mL/min (>60); Estimated Creatinine Clearance 56.95 ml/min; Glucose 184 mg/dL (74-106); Potassium 3.9 mmol/L (3.5-5.1); Sodium Level 131 mmol/L (136-145)
--- NOTE | 2022-03-13 07:33 | NURSING ---
called and updated on new orders.
--- NOTE | 2022-03-13 08:00 | NURSING ---
Left vm for Sera CASTILLO, requesting daughters. Darling Larsen at [phone] and Asha, be added to pt's contact list. No contact inform or last name obtained for Asha.
[2022-03-13 08:19] LABS: Bacteria 0 SEEN /hpf (None Seen); Mucous, Urine 0 SEEN /hpf (<or=2+); Red Blood Cells-Urine 0 SEEN /hpf (0-5); Squamous Epithelial Cells - UA 0 SEEN /hpf (0-5)
[2022-03-13] MEDS: Potassium Chloride Oral Tablet 20 MEQ PO (08:26)
[2022-03-13] MEDS: Amiodarone 200 MG Tablet PO ×2 (08:26→18:03)
[2022-03-13 08:27] LABS: Color, Urine Yellow (Yellow); Glucose, Dipstick Normal (Normal); Ketone-Dipstick 5 mg/dl (Negative); Leukocyte Esterase-Dipstick 25 /ul (Negative); Nitrite-Dipstick Negative (Negative); Occult Blood-Urine Negative /ul (Negative); Protein-Dipstick 30 mg/dl (Negative); Specific Gravity, Urine 1.015 (1.002-1.030); Urine Clarity Clear (Clear); Urine Urobilinogen Normal (Normal)
[2022-03-13] MEDS: Ascorbic Acid 500 MG Tablet PO (08:27)
[2022-03-13 08:29] LABS: Urine Bilirubin Dipstick 6 mg/dL (Negative)
[2022-03-13 08:58] LABS: White Blood Cells 0-5 SEEN /hpf (0-5)
--- NOTE | 2022-03-13 11:38 | NURSING ---
Patient having difficulty taking meds, has been taking in applesauce d/t difficulty swallowing but complains that applesauce virgen his throat. Only took partial dose of potassium before saying he couldn't take anymore. to bedside around 0845, patient complaining of shoulder pain, given tramadol which he swallowed with water per his request. Daughter and at bedside around 0900, they called out frequently to have patient adjusted, wanted him sat up on side of bed then would call out 15 minutes later to have him readjusted. Staff adjusted patient multiple times at patient/family request in attempt to make him more comfortable.
--- NOTE | 2022-03-13 11:47 | NURSING ---
1115-Called report to FABIAN Barry on PCU, patient tranferred to room 110 for transfusion. went with patient. Port accessed this morning around 10am, patient tolerated well.
[2022-03-13] MEDS: Atorvastatin Calcium 20 MG Tablet PO (18:02)
[2022-03-13] MEDS: Metoprolol Tartrate 100 MG Tablet PO (18:02)
[2022-03-13] MEDS: Pioglitazone Hydrochloride 15 MG Tablet PO (18:02)
[2022-03-13] MEDS: metFORMIN HCl 500 MG Tablet PO (18:02)
--- NOTE | 2022-03-13 19:15 | NURSING ---
Dr. Jones notified of patient shivering, SpO2 < 90%. Received transfusion earlier. New order received to send patient to ED for evaluation.
--- NOTE | 2022-03-14 02:02 | NURSING ---
Ofloxacin eye drops sent to ICU.
--- NOTE | 2022-03-14 07:51 | DS.PCM_ITS ---
Providers Date of Admission: 03/09/22 Primary Care Physician: Dr. Eran Moeller, DO Consultations 03/11/22 13:23 Consult: Hospice / Palliative Care Routine Consulting Provider: [facility] Reason for Consult: PALLIATIVE EMERGENT Consult: No MD Notified: Yes Date Notified: 03/11/22 Time Notified: 13:23 Method of Notification: Verbal Reason For Visit: HYPOXIA/CONFUSION Diagnosis Discharge Diagnosis (1) Debility: Status: Acute Code(s): R53.81 - Other malaise (2) Rhinovirus infection: Status: Acute Code(s): B34.8 - Other viral infections of unspecified site (3) Atrial fibrillation with RVR: Status: Acute Code(s): I48.91 - Unspecified atrial fibrillation (4) Acute respiratory failure with hypoxia: Status: Acute Code(s): J96.01 - Acute respiratory failure with hypoxia (5) Esophageal cancer: Status: Acute Code(s): C15.9 - Malignant neoplasm of esophagus, unspecified (6) Diabetes mellitus: Status: Acute Code(s): E11.9 - Type 2 diabetes mellitus without complications (7) Hypertension: Status: Chronic Code(s): I10 - Essential (primary) hypertension (8) Hyperlipidemia: Status: Acute Code(s): E78.5 - Hyperlipidemia, unspecified (9) Asthma: Status: Acute Code(s): J45.909 - Unspecified asthma, uncomplicated Plan 82 year old male with below past medical history significant for esophageal cancer, hospitalized for acute respiratory failure with hypoxia secondary to rhinovirus, complicated by atrial fibrillation with rapid ventricular response, admitted to TCU with debility, here for rehabilitation, strengthening, prior to discharge home with . * Debility - PT/OT. * Pain - Tylenol 1300mg q8, Oxycodone 5mg q4h prn pain (4-10). * Bowel - senna/colace 2 tablets bid, MOM 30ml daily prn. * Adult immunization - Administer pneumonia vaccine, covid19 vaccine, flu vaccine as appropriate. * DVT prophylaxis - Not necessary, already on Eliquis. * Atrial fibrillation - Metoprolol 100mg bid, Amiodarone 200mg bid thru 03/16/2022, then 200mg daily, Eliquis 2.5mg bid. * Hyperlipidemia - Atorvastatin 20mg with dinner. * Asthma Budesonide 0.5mg inhaled bid. * Edema - Furosemide 40mg daily. * Skin irritation - Calmoseptine topical bid, Petrolatum topical bid. * Diabetes Mellitus II - Metformin 500mg bidcm, Geovanni 15mg bidcm. * Tinea Corporis - Nystatin powder topical bid. * Conjunctivitis - Ofloxacin 1gtt ou qhs. * Vitamin D deficiency - D3 50mcg daily. * Esophageal cancer - Resume treatment with Dr. Cook/Dr. Billings once discharged from TCU. Medications at Discharge Home Medications cholecalciferol (vitamin D3) 50 mcg (2,000 unit) capsule (Vitamin D3) 1,000 unit PO DAILY SUPPLEMENT 11/08/16 ofloxacin 0.3 % eye drops 1 drp EACH EYE QHS PRN Eye Irritation 02/12/22 acetaminophen 650 mg tablet,extended release 1,300 mg PO Q8H pain 03/04/22 amiodarone 200 mg tablet 200 mg PO BIDCM heart 03/09/22 amiodarone 200 mg tablet 200 mg PO DAILY heart 03/09/22 apixaban 2.5 mg tablet (Eliquis) 2.5 mg PO BID blood thinner 03/09/22 budesonide 0.5 mg/2 mL suspension for nebulization 0.5 mg inhalation BID.RT respiratory 03/09/22 furosemide 40 mg tablet 40 mg PO DAILY fluid pill 03/09/22 metoprolol tartrate 100 mg tablet 100 mg PO BID heart 03/09/22 ascorbic acid (vitamin C) 500 mg tablet 500 mg PO BREAKFAST 03/13/22 atorvastatin 20 mg tablet 20 mg PO DINNER 03/13/22 calamine phenolated lotion 1 applic topical BID 03/13/22 food supplemt, lactose-reduced 0.08 gram-1.5 kcal/mL oral liquid (Ensure Plus High Protein) 120 ml PO 4X/DAY 03/13/22 metformin 500 mg tablet 500 mg PO BIDCM 03/13/22 metoclopramide HCl 5 mg tablet See Rx Instructions .Route .COMPLEX 03/13/22 nystatin 100,000 unit/gram topical powder 1 applic topical BID 03/13/22 pioglitazone 15 mg tablet 15 mg PO BIDCM 03/13/22 polysaccharide iron complex 150 mg iron capsule 150 mg PO DAILY 03/13/22 potassium chloride 20 mEq tablet,extended release 20 meq PO DAILY 03/13/22 sennosides 8.6 mg-docusate sodium 50 mg tablet (Senna with Docusate Sodium) 1 t ab PO BID 03/13/22 tramadol 50 mg tablet 50 mg PO Q6H PRN Pain 03/13/22 Hospital Course Operations None Procedures None Summary of Care Provided Minutes Spent on Discharge: 30 Hospital Course: 82 year old male with below past medical history significant for esophageal cancer, hospitalized for acute respiratory failure with hypoxia secondary to rhinovirus, complicated by atrial fibrillation with rapid ventricular response, admitted to TCU with debility, here for rehabilitation, strengthening, prior to discharge home with . 03/13/2022 Hemoglobin 6.0, transfused 2 units PRBC. 03/13/2022 Resident hypoxic, tachypneic. 03/13/2022 Discharge to [facility] Emergency Department for evaluation, admission to hospital. Weight / BMI Weight Weight: 82.599 kg Body Mass Index (BMI) 26.9 ABG / Lab / Microbiology Data Result Diagrams: 03/13/22 06:37 03/13/22 06:37 Laboratory: Laboratory Results - last 24 hr 03/13/22 07:37: Blood Type Cancelled, Antibody Screen Cancelled, Crossmatch See Detail 03/13/22 08:00: Urine Color Yellow, Urine Clarity Clear, Urine pH 5.0, Ur Specific [place] 1.015, Urine Protein 30 H, Urine Glucose (UA) Normal, Urine Ketones 5 H, Urine Occult Blood Negative, Urine Nitrite Negative, Urine Bilirubin 6 H, Urine Urobilinogen Normal, Ur Leukocyte Esterase 25 H, Urine RBC 0 SEEN, Urine WBC 0-5 SEEN, Ur Squamous Epith Cells 0 SEEN, Urine Bacteria 0 SEEN, Urine Mucus 0 SEEN Microbiology: Microbiology 03/11/22 06:30 Nasal Secretion SARS-CoV-2 Antigen (Rapid) - Final D/C Instructions Discharge Diet: No restrictions Discharge Activity: Return to Normal Activity, May Shower and Use Walker Weight Bearing Status: Weight bearing as tolerated Call your doctor if you observe: Fever of 101 or Higher, Inability to urinate, Inability to have a bowel movement, Shortness of breath, Dizziness, Fainting spells, Swelling in the ankles, Chest pain and Uncontrolled pain Additional Instructions: 03/13/2022 Discharge to [facility] Emergency Department for evaluation, admission to hospital. Meaningful Use Info Meaningful Use Diagnoses (Choose all that apply): None applicable Discharge Plan Admission Admit Date/Time: 03/09/22 16:30 Primary Reason for Your Visit: Debility. Attending Provider: Yakov Jones Chi Primary Care Provider: Eran Moeller Consulting Providers: Lesli Dye ; Jerry Martinez ; Pilar Francis ; Kelly Bella ; Ashli Villaseñor SOLDER TECHNICIAN Instructions Additional Instructions / Restrictions: 03/13/2022 Discharge to [facility] Emergency Department for evaluation, admission to hospital. Discharge Orders/Prescriptions Prescriptions: No Action cholecalciferol (vitamin D3) [Vitamin D3] 2,000 UNIT capsule 1,000 unit PO DAILY ofloxacin 0.3 % drops 1 drp EACH EYE QHS PRN (Reason: Eye Irritation) acetaminophen 650 mg Tablet Extended Release 1,300 mg PO Q8H amiodarone 200 mg Tablet 200 mg PO DAILY Rx Instructions: to start 03/17/22 furosemide 40 mg tablet 40 mg PO DAILY metoprolol tartrate 100 mg tablet 100 mg PO BID amiodarone 200 mg tablet 200 mg PO BIDCM budesonide 0.5 mg/2 mL suspension for nebulization 0.5 mg inhalation BID.RT Eliquis 2.5 mg tablet 2.5 mg PO BID pioglitazone 15 mg Tablet 15 mg PO BIDCM metformin 500 mg Tablet 500 mg PO BIDCM atorvastatin 20 mg Tablet 20 mg PO DINNER polysaccharide iron complex 150 mg iron Capsule 150 mg PO DAILY calamine phenolated [Calamine Phenol] Lotion 1 applic TOPICAL BID sennosides-docusate sodium [Senna with Docusate Sodium] 8.6-50 mg Tablet 1 tab PO BID tramadol 50 mg Tablet 50 mg PO Q6H PRN (Reason: Pain) metoclopramide HCl 5 mg Tablet See Rx Instructions .ROUTE .COMPLEX Rx Instructions: 5 mg orally ACHS PRN ascorbic acid (vitamin C) 500 mg Tablet 500 mg PO BREAKFAST nystatin 100,000 unit/gram Powder 1 applic TOPICAL BID potassium chloride 20 mEq Tablet Extended Release 20 meq PO DAILY Ensure Plus High Protein 0.08 gram-1.5 kcal/mL Liquid 120 ml PO 4X/DAY Referrals / Follow Up: Eran Moeller, [Primary Care Provider] - Disposition Disposition (needs filled in before D/C Order can be placed): Acute [facility] Hospital
--- NOTE | 2022-03-21 09:19 | MDS.RN ---
Information for the mds was obtained from review of the clinical record, interview of resident, staff, and direct observation of resident's care.
== END 2022-03-13 19:30 | disposition short-term general hospital (02) | DRG 865 ==
PROVIDERS: Admitting Provider Family Medicine Geriatric Medicine; Visit Provider Family Medicine Geriatric Medicine
DX: B34.8 Other viral infections of unspecified site (principal); J96.01 Acute respiratory failure with hypoxia; C15.9 Malignant neoplasm of esophagus, unspecified; E11.9 Type 2 diabetes mellitus without complications; E55.9 Vitamin D deficiency, unspecified; B35.4 Tinea corporis; E78.5 Hyperlipidemia, unspecified; I48.0 Paroxysmal atrial fibrillation; J45.909 Unspecified asthma, uncomplicated; I10 Essential (primary) hypertension; Z79.84 Long term (current) use of oral hypoglycemic drugs; Z79.82 Long term (current) use of aspirin; Z79.01 Long term (current) use of anticoagulants; Z79.899 Other long term (current) drug therapy; Z23 Encounter for immunization
CPT/HCPCS: 36415; 71046; 80048; 81001; 82962; 83880; 85014; 85018; 85025; 86920; 86922; 87086; 87426; 92526; 92610; 94640; 97110; 97116; 97162; 97166; 97530; 97802; G0008; 90686

== ENCOUNTER 2022-03-13 07:42 | Outpatient (CLI) | payer MEDICARE, SELFPAY ==
[2022-03-13 11:22] VITALS: BP 103/51; PULSE 77; RESP 18; TEMP 36.5; O2SAT 96
--- NOTE | 2022-03-13 11:40 | NURSING ---
Patient arrived to floor for blood transfusion fussing over patient wanted him up in chair patient states he doesn't care. Assisted 2 max to chair per request. Blood transfusion started c/o pain to left shoulder was told by TCU nurse patient had pain meds prior to arrival warm compress applied to left back/shoulder area. Nurse left room, called out immediately wanting his pillows rearranged. Rearranged pillows and assisted back in chair slightly. Patient states more comfortable with compress on
[2022-03-13 11:47] VITALS: BP 97/47; PULSE 80; RESP 17; TEMP 36.5; O2SAT 98
[2022-03-13 12:47] VITALS: BP 102/47; PULSE 73; RESP 17; TEMP 36.6; O2SAT 98
[2022-03-13 13:47] VITALS: BP 109/64; PULSE 81; RESP 17; TEMP 36.1; O2SAT 97
[2022-03-13] MEDS: 0.9 % NaCl (Sterile) Posiflush 10 mL IV (14:14)
[2022-03-13] MEDS: Furosemide 20 MG/2 ML VIAL IV (14:14)
[2022-03-13 14:35] VITALS: BP 111/54; PULSE 78; RESP 16; TEMP 36.1; O2SAT 97
[2022-03-13 15:44] VITALS: BP 123/55; PULSE 95; RESP 15; TEMP 36.1; O2SAT 99
[2022-03-13] MEDS: 0.9% Saline Lock 10 ML Syringe IV (16:40)
--- NOTE | 2022-03-13 17:21 | NURSING ---
[id number] patient taken to tcu with family
== END 2022-03-13 16:53 | disposition home or self-care (01) ==
LOC: PCUOUT 07:45 → PCU 07:45
PROVIDERS: Referring Provider Family Medicine Geriatric Medicine; Visit Provider Family Medicine Geriatric Medicine
DX: Z00.00 Encounter for general adult medical examination without abnormal findings (principal)
CPT/HCPCS: 36430; 86850; 86900; 86901; 86920; 86922; P9016; A4216; J1940

== ENCOUNTER 2022-03-13 19:12 | Inpatient (IN) | payer MEDICARE, SELFPAY ==
[2022-03-13] VITALS (17 sets, daily range): BP systolic 51–126; BP diastolic 38–81; PULSE 57–130; RESP 0–28; TEMP 36.7–37.1; O2SAT 61–96; BMI 28.9; BMI 25.4
--- NOTE | 2022-03-13 00:08 | RAD_ITS ---
STUDY: X-RAY - ABDOMEN/PELVIS REASON FOR EXAM: Male, 82 years old. NG placement -- portable TECHNIQUE: Single AP view of the abdomen / pelvis. COMPARISON: None. FINDINGS: Bilateral coarse opacities more severe to the right lung base and throughout the lung washburn concerning for atelectasis versus infiltrates. There is a left-sided central line with the tip in the proximal right atrium. The nasogastric tube has the tip in the mid upper stomach. There is a stent projecting over the left upper quadrant presumably representing an EG junction stent. There is an unremarkable bowel gas pattern. There is no demonstrated free abdominal air. The visualized liver, spleen and kidneys are grossly normal in size and morphology. Normal soft tissue structures. There are diffuse degenerative changes of the visualized lumbar spine. RAD/Abdomen Single View (Portable) IMPRESSION: Lines and tubes as described. Patchy densities within the lungs suggestive of atelectasis versus infiltrate and more severe at the right lung base. Clinical correlation recommended. Electronically Signed: Hillary Allen MD at 0:30 EST ,
--- NOTE | 2022-03-13 19:42 | EKG12_ITS ---
Test Reason : SOB Blood Pressure : / mmHG Vent. Rate : 113 BPM Atrial Rate : 113 BPM P-R Int : 178 ms QRS Dur : 080 ms QT Int : 340 ms P-R-T Axes : 034 -21 092 degrees QTc Int : 466 ms Sinus tachycardia Possible Left atrial enlargement Abnormal QRS-T angle, consider primary T wave abnormality Abnormal ECG Confirmed by EDENILSON GONSALVES, SHANDA ([id number]), video news editor MICAH VEGA ([id number]) on 03/15/2022 11:21:21 AM Referred By: Confirmed By:SHANDA PYLE MD
[2022-03-13 19:59] LABS: Absolute Lymphocyte Count 1.01 X10^3/uL (0.83-4.51); Absolute Neutrophil Count 1.5 X10^3/uL (2.0-7.7); Basophil# 0.01 X10^3/uL; Basophil% 0.3 % (0-1); Hematocrit 29.9 % (40-54); Hemoglobin 9.5 g/dL (13.0-16.5); Lymphocyte # 1.01 X10^3/ul (0.83-4.51); Lymphocyte % 35.3 % (19-41); Mean Corp Hgb Conc 31.8 g/dL (32-36); Mean Corpuscular Hgb 27.1 pg (27.0-32.0); Mean Corpuscular Volume 85.4 fL (80-94); Mean Platelet Vol. 10.1 fl (6.2-12.0); Monocyte# 0.35 X10^3/uL; Monocyte% 12.2 % (0-10); NRBC Flagged by Analyzer 1.7 % (0-5); Neutrophil # 1.45 X10^3/uL (2.7-7.7); Neutrophil % 50.8 % (47-70); POSITIVE MORPHOLOGY YES; Platelet Count 136 K/mm3 (150-450); RBC Distribution Width SD 59.2 fl (35.1-43.9); White Blood Count 2.9 K/mm3 (4.4-11.0)
[2022-03-13 20:01] LABS: Differential Indicated SCAN CRITERIA MET
[2022-03-13 20:11] LABS: Allen Test Negative; Base Excess 1 mmol/L (-2 to +2); Bicarbonate 28.1 mmol/L (22-26); Blood Gas Specimen Type ART; FI02 100; O2 Delivery Device NRB; PO2 79 mmHG (75-100); SITE L Radial; SO2 93 % (95-99); Total Carbon Dioxide 30 mmol/L; pCO2 60.8 mmHg (35-45); pH 7.27 (7.35-7.45)
--- NOTE | 2022-03-13 20:13 | RAD_ITS ---
STUDY: X-RAY CHEST REASON FOR EXAM: Male, 82 years old. shortness of breath TECHNIQUE: XR Chest 1 View COMPARISON: Two days ago. FINDINGS: There is atherosclerotic calcification of the aortic arch with tortuosity. There are diffuse degenerative changes of the visualized thoracic spine. There is degenerative osteoarthritis of the bilateral shoulders. There are bilateral pleural effusions. There is diffuse opacification of the right lung. There is a left Port-A-Cath and/or mediport in place. The tip is in the superior vena cava. Elevated right humeral head with eburnation of the acromion suggest a chronic rotator cuff tear. Normal size heart. Normal mediastinum and luigi. Normal visualized pulmonary arteries. There is no demonstrated abnormality of the visualized soft tissue structures of the upper abdomen. RAD/Chest 1 View (Portable) IMPRESSION: Left lung findings are improved. Opacified right lung. Mucous plug should be considered. Electronically Signed: Toño Catalan MD at 20:30 EST ,
[2022-03-13 20:16] LABS: BNP,B-Type NATRIURETIC PEPTIDE 323.6 pg/mL (0-100)
[2022-03-13 20:18] LABS: Anion Gap 10 (5-15); BUN 42 mg/dL (7-18); BUN/Creat Ratio 47.2 RATIO (10-20); Calcium,Total 8.7 mg/dL (8.5-10.1); Chloride 93 mmol/L (98-107); Creatinine, Serum 0.89 mg/dL (0.70-1.30); EST Glomerular Filtration Rate 87 mL/min (>60); Est Glom Filt Rate - Afr Amer 105 mL/min (>60); Estimated Creatinine Clearance 63.99 ml/min; Glucose 191 mg/dL (74-106); Potassium 4.2 mmol/L (3.5-5.1); Sodium Level 133 mmol/L (136-145); Troponin-I HS 11 pg/mL (3.0-78.0)
[2022-03-13 20:21] LABS: Anisocytosis 2+; Polychromasia 1+
[2022-03-13 20:22] LABS: Macrocytosis 1+; Microcytosis 1+
[2022-03-13 20:23] LABS: Differential Comment SCANNED
--- NOTE | 2022-03-13 20:25 | EDS_ITS ---
HPI <JOHN Owens - Last Filed: 03/13/22 21:01> History of Present Illness Chief Complaint: Shortness of Breath Narrative Narrative: 82-year-old male with history of respiratory failure, CHF, atrial fibrillation, esophageal cancer who is currently staying at the TCU after being admitted to the hospital presents to the emergency department with acute respiratory distress. Patient's hemoglobin was 6.0, he received 2 units of packed red blood cells with Lasix given in between the units, and TCU, within 1 hour after the second unit he began having a cough, feeling much more short of breath. Patient is normally on 3 L nasal cannula, patient arrives on nonrebreather. Denies any fevers or chills. Patient is alert and orient x2, patient is very anxious, continually moving stating he is uncomfortable. PFS <JOHN Owens - Last Filed: 03/13/22 21:01> [facility] Medical History Aspiration pneumonia Asthma Chronic anemia Diabetes mellitus, type 2 Esophageal carcinoma HLD (hyperlipidemia) HTN (hypertension) Iron deficiency anemia PAF (paroxysmal atrial fibrillation) Home Medications cholecalciferol (vitamin D3) 50 mcg (2,000 unit) capsule (Vitamin D3) 1,000 unit PO DAILY SUPPLEMENT 11/08/16 [History Last Taken 1 Month Ago ~02/01/22] ofloxacin 0.3 % eye drops 1 drp EACH EYE QHS PRN Eye Irritation 02/12/22 [History Last Taken 03/02/22] acetaminophen 650 mg tablet,extended release 1,300 mg PO Q8H pain 03/04/22 [History Last Taken 03/04/22 07:30] amiodarone 200 mg tablet 200 mg PO BIDCM heart 03/09/22 [History Last Taken 03/13/22] amiodarone 200 mg tablet 200 mg PO DAILY heart 03/09/22 [History Last Taken Unknown] apixaban 2.5 mg tablet (Eliquis) 2.5 mg PO BID blood thinner 03/09/22 [History Last Taken Unknown] budesonide 0.5 mg/2 mL suspension for nebulization 0.5 mg inhalation BID.RT respiratory 03/09/22 [History Last Taken Unknown] furosemide 40 mg tablet 40 mg PO DAILY fluid pill 03/09/22 [History Last Taken Unknown] metoprolol tartrate 100 mg tablet 100 mg PO BID heart 03/09/22 [History Last Taken Unknown] ascorbic acid (vitamin C) 500 mg tablet 500 mg PO BREAKFAST 03/13/22 [History Last Taken Unknown] atorvastatin 20 mg tablet 20 mg PO DINNER 03/13/22 [History Last Taken Unknown] calamine phenolated lotion 1 applic topical BID 03/13/22 [History Last Taken Unknown] food supplemt, lactose-reduced 0.08 gram-1.5 kcal/mL oral liquid (Ensure Plus High Protein) 120 ml PO 4X/DAY 03/13/22 [History Last Taken Unknown] metformin 500 mg tablet 500 mg PO BIDCM 03/13/22 [History Last Taken Unknown] metoclopramide HCl 5 mg tablet See Rx Instructions .Route .COMPLEX 03/13/22 [History Last Taken Unknown] nystatin 100,000 unit/gram topical powder 1 applic topical BID 03/13/22 [History Last Taken Unknown] pioglitazone 15 mg tablet 15 mg PO BIDCM 03/13/22 [History Last Taken Unknown] polysaccharide iron complex 150 mg iron capsule 150 mg PO DAILY 03/13/22 [History Last Taken Unknown] potassium chloride 20 mEq tablet,extended release 20 meq PO DAILY 03/13/22 [History Last Taken Unknown] sennosides 8.6 mg-docusate sodium 50 mg tablet (Senna with Docusate Sodium) 1 tab PO BID 03/13/22 [History Last Taken Unknown] tramadol 50 mg tablet 50 mg PO Q6H PRN Pain 03/13/22 [History Last Taken Unknown] Allergy/AdvReac Type Severity Reaction Status Date / Time albuterol Allergy Other Verified 03/13/22 19:13 amoxicillin Allergy Other Verified 03/13/22 19:13 levofloxacin [From Levaquin] Allergy Other Verified 03/13/22 19:13 moxifloxacin [From Avelox] Allergy Other Verified 03/13/22 19:13 sulfamethoxazole Allergy Rash Verified 03/13/22 19:13 [From Bactrim] trimethoprim [From Bactrim] Allergy Rash Verified 03/13/22 19:13 Family History Father Hypertension Diabetes Heart disease CAD (coronary artery disease) Sister Hypertension Diabetes Mother Hypertension Surgical History H/O sinus surgery History of esophageal surgery Status post myringotomy with tube placement of both ears Social History household members: spouse Smoking Status: Never smoker alcohol intake: current alcohol intake frequency: a few times a month substance use type: does not use ROS <JOHN Owens - Last Filed: 03/13/22 21:01> ROS ED ROS Narrative Constitutional: Negative for fever, chills, weight loss, weakness Eyes: Negative for vision loss, vision change, double vision ENT: Negative for any sore throat, ear pain, congestion Cardiovascular: Negative for any chest pain, tightness, palpitations Respiratory: Negative for any sputum production, hemoptysis.positive for cough, dyspnea, dyspnea on exertion, orthopnea Gastrointestinal: Negative for any abdominal pain, nausea, vomiting, diarrhea, constipation, blood in stool, blood in vomit : Negative for any urinary frequency, dysuria, retention, blood in urine Muscle skeletal: Negative for any muscle joint pain, stiffness, myalgias, arthralgias, neck pain, back pain Neurological: Negative for any headache, syncope, numbness or tingling, dizziness Skin: Negative for any rashes, lumps, itching, abrasions, lacerations Psychiatric: Negative for any depression, anxiety, stress, suicidal ideation, homicidal ideation Hematologic: Negative for any easy bruising, excessive bruising, easy bleeding Allergies: Negative for any eczema, hives, rash EXAM <JOHN Owens - Last Filed: 03/13/22 21:01> Physical Exam Narrative Exam Narrative: Vital signs reviewed. Patient arrives in obvious respiratory distress, patient is nonrebreather 15 L, tachypneic, anxious, audible crackles HEET: Head normocephalic atraumatic, TMs clear bilaterally. Posterior pharynx is clear, moist mucous membranes. Nares clear bilaterally. Neck: Supple with no lymphadenopathy or tenderness. No signs of meningismus, negative jolt sign. Cardiac: Regular rate and rhythm no murmurs gallops or rubs, equal peripheral pulses bilaterally. Respiratory: Patient has crackles to left lung washburn, patient does have minimal lung sounds to the right side. No chest tenderness. Abdomen: Soft, nontender, nondistended. No abdominal bruit or pulsatile masses. No hepatosplenomegaly Extremities: Patient has +3 pitting edema throughout his lower extremities., no signs of gross trauma or deformity. Active full range of motion of all extremities. Neuro: Cranial nerves II through XII intact, no focal neurological deficits. Skin: Clean dry and intact with no rash, purpura, petechiae, vesicles or pustules. Backs/flank: No CVA tenderness, no midline spinal tenderness, no deformity. Psych: Normal mood and affect. No SI, HI or acute psychosis. Const Vital Signs: 03/13/22 19:14 03/13/22 19:20 03/13/22 20:10 Temperature 98.1 F Temperature Source Oral Pulse Rate 114 H 118 H Respiratory Rate 25 H 28 H Respiratory Effort Short of Breath Labored Respiratory Depth Shallow Respiratory Pattern Hyperpnea Blood Pressure 126/73 H Blood Pressure Mean 90 Pulse Ox 93 93 Oxygen Delivery Method Non-Rebreather Non-Rebreather Oxygen Flow Rate (L/min) 15 15 Fraction of Inspired Oxygen (FIO2) 75 03/13/22 20:44 03/13/22 20:47 Temperature 98.8 F 98.8 F Temperature Source Axillary Axillary Pulse Rate 108 H 107 H Respiratory Rate 27 H 25 H Respiratory Effort Respiratory Depth Respiratory Pattern Blood Pressure 120/70 120/70 Blood Pressure Mean 86 86 Pulse Ox 91 91 Oxygen Delivery Method Bi-pap Bi-pap Oxygen Flow Rate (L/min) Fraction of Inspired Oxygen (FIO2) 75 75 Positive cachectic General Appearance ED: cachectic Nutritional Appearance: cachectic <Dr. Bairon Kim, DO - Last Filed: 03/13/22 23:52> Physical Exam Const Vital Signs: 03/13/22 19:14 03/13/22 19:20 03/13/22 20:10 Temperature 98.1 F Temperature Source Oral Pulse Rate 114 H 118 H Respiratory Rate 25 H 28 H Respiratory Effort Short of Breath Labored Respiratory Depth Shallow Respiratory Pattern Hyperpnea Blood Pressure 126/73 H Blood Pressure Mean 90 Pulse Ox 93 93 Oxygen Delivery Method Non-Rebreather Non-Rebreather Oxygen Flow Rate (L/min) 15 15 Fraction of Inspired Oxygen (FIO2) 75 03/13/22 20:44 03/13/22 20:47 Temperature 98.8 F 98.8 F Temperature Source Axillary Axillary Pulse Rate 108 H 107 H Respiratory Rate 27 H 25 H Respiratory Effort Respiratory Depth Respiratory Pattern Blood Pressure 120/70 120/70 Blood Pressure Mean 86 86 Pulse Ox 91 91 Oxygen Delivery Method Bi-pap Bi-pap Oxygen Flow Rate (L/min) Fraction of Inspired Oxygen (FIO2) 75 75 [facility] <Jamal SuggsJOHN - Last Filed: 03/13/22 21:01> [facility] Lab Data Labs: Laboratory Results - last 24 hr 03/13/22 03/13/22 03/13/22 19:52 19:52 19:52 WBC 2.9 L RBC 3.50 L Hgb 9.5 L Hct 29.9 L MCV 85.4 MCH 27.1 MCHC 31.8 L RDW Std Deviation 59.2 H RDW Coeff of Rey 20.0 H Plt Count 136 L MPV 10.1 Immature Gran % (Auto) 1.400 H Neut % (Auto) 50.8 Lymph % (Auto) 35.3 [place] % (Auto) 12.2 H Eos % (Auto) 0.0 Baso % (Auto) 0.3 Absolute Neuts (auto) 1.5 L Absolute Lymphs (auto) 1.01 Nucleated RBC % 1.7 Differential Comment SCANNED Polychromasia 1+ Anisocytosis 2+ Microcytosis 1+ Macrocytosis 1+ Sodium 133 L Potassium 4.2 Chloride 93 L Carbon Dioxide 30.0 Anion Gap 10 BUN 42 H Creatinine 0.89 Estim Creat Clear Calc 63.99 Est GFR (MDRD) Af Amer 105 Est GFR (MDRD) Non-Af 87 BUN/Creatinine Ratio 47.2 H Glucose 191 H Calcium 8.7 Troponin I High Sens 11 B-Natriuretic Peptide 323.6 H ABG Data ABG results: ABG 03/13/22 20:06 Specimen Type ART Sample Site L Radial pH 7.27 L Bicarbonate Actual 28.1 H Total CO2 30 Base Excess 1 O2 Saturation 93 L O2 % 100 ABG pCO2 60.8 H ABG pO2 79 Petros Test Negative O2 Delivery Device NRB Radiography Diagnostic Testing: Clinical Impression(s) from Imaging Studies Chest X-Ray 03/13/22 20:13 IMPRESSION: Left lung findings are improved. Opacified right lung. Mucous plug should be considered. Electronically Signed: Toño Catalan MD at 20:30 EST Reading Location ID and State: [facility] / [place] , Service support , EKG EKG shows sinus tachycardia: Attestation: I personally reviewed and interpreted this EKG as follows: Comments: Sinus tachycardia rate of 113 bpm, [place] interval 178 ms, QRS duration 80 ms, no acute ST elevation, no acute infarct noted. Treatment and Re-Evaluation Narrative: Patient arrives in mild to moderate respiratory distress, patient has obvious crackles, patient is 94% on a 15 L nonrebreather mask. Patient is tachycardic. No signs or symptoms of sepsis. Patient has no fever. Patient does have a wet cough. Initial examination is consistent with CHF. Patient's laboratory studies show a white blood count of 2.9, 2 days ago, the patient was 5.3. Patient's hemoglobin 9.5, earlier today it was 6.0. Patient did receive 2 units of packed red blood cells. Patient's platelet count is 136. Patient's sodium was slightly low 133. Kidney function unremarkable. Patient's initial troponin was 11, patient's proBNP was 323.6, 3 days ago the proBNP was 1 up to 7.5. Patient is negative for COVID-19, influenza. Patient's chest x-ray shows left lung findings are improved, opacified right lung, mucous plug should be considered. Patient did receive an atrial blood glass showed a pH is 7.27 CO2 of 60.8. O2 is 93.2%. Patient will need to be admitted to the hospital. Patient placed on BiPAP, settings /. Well given IV Lasix. Patient admitted to ICU, full admission. <Dr. Bairon Kim, DO - Last Filed: 03/13/22 23:52> [facility] Narrative Medical decision making narrative: I have personally performed a face to face assessment of the patient and have reviewed the JESSICA Note. I performed a substantive portion of the visit including all aspects of the following. My mckenzie findings include: History: Patient presents with shortness of breath that became worse today. Patient was on TCU for rehab. Patient received 2 units of blood earlier today. Patient did receive a dose of Lasix between units of blood. Patient states that his breathing became worse tonight. Patient is having difficulty speaking due to the shortness of breath. Patient denies any fevers or chills. Patient denies any chest pain. Exam: Vital signs are stable except for a tachycardia of 114 and tachypnea of 25. Patient is on nonrebreather mask. Oral mucosa is pink and moist. Neck is supple. Trachea is midline. Heart was regular and tachycardic. Lungs were diminished on the right. There were some rales on the left. There is adequate respiratory effort. Abdomen is soft and nontender. Extremities were intact. There is 2+ pitting edema bilaterally. Cranial nerves II through XII are intact. There are no focal motor or sensory deficits. Medical Decision Making: Patient was given a dose of Lasix here. Patient was started on BiPAP. Patient started to improve with this. CBC shows hemoglobin 9.5 and hematocrit 29.9. Platelets were 136. Basic metabolic profile shows an elevated BUN of 42. High-sensitivity troponin was normal at 11. B-natriuretic peptide was elevated at 323.6. Portable 1 view chest x-ray was obtained. On my interpretation, lung washburn show complete opacification of the right lung. There is normal cardiac silhouette. Bony thorax is normal. Radiologist also interpreted the x-ray and agrees. Patient was feeling better on BiPAP. Case was discussed with the hospitalist. She will admit the patient to ICU. Patient and family understood and were agreeable with the plan. All questions were answered. Lab Data Labs: Laboratory Results - last 24 hr 03/13/22 03/13/22 03/13/22 19:52 19:52 19:52 WBC 2.9 L RBC 3.50 L Hgb 9.5 L Hct 29.9 L MCV 85.4 MCH 27.1 MCHC 31.8 L RDW Std Deviation 59.2 H RDW Coeff of Rey 20.0 H Plt Count 136 L MPV 10.1 Immature Gran % (Auto) 1.400 H Neut % (Auto) 50.8 Lymph % (Auto) 35.3 [place] % (Auto) 12.2 H Eos % (Auto) 0.0 Baso % (Auto) 0.3 Absolute Neuts (auto) 1.5 L Absolute Lymphs (auto) 1.01 Nucleated RBC % 1.7 Differential Comment SCANNED Polychromasia 1+ Anisocytosis 2+ Microcytosis 1+ Macrocytosis 1+ Sodium 133 L Potassium 4.2 Chloride 93 L Carbon Dioxide 30.0 Anion Gap 10 BUN 42 H Creatinine 0.89 Estim Creat Clear Calc 63.99 Est GFR (MDRD) Af Amer 105 Est GFR (MDRD) Non-Af 87 BUN/Creatinine Ratio 47.2 H Glucose 191 H Calcium 8.7 Troponin I High Sens 11 B-Natriuretic Peptide 323.6 H ABG Data ABG results: ABG 03/13/22 20:06 Specimen Type ART Sample Site L Radial pH 7.27 L Bicarbonate Actual 28.1 H Total CO2 30 Base Excess 1 O2 Saturation 93 L O2 % 100 ABG pCO2 60.8 H ABG pO2 79 Petros Test Negative O2 Delivery Device NRB Radiography Chest X-Ray - ED: 1 View, Read by ED Physician, Read by Radiologist, Right Infiltrate and Right Effusion Diagnostic Testing: Clinical Impression(s) from Imaging Studies Chest X-Ray 03/13/22 20:13 IMPRESSION: Left lung findings are improved. Opacified right lung. Mucous plug should be considered. Electronically Signed: Toño Catalan MD at 20:30 EST Reading Location ID and State: [facility] / [place] , Service support , <JOHN Owens - Last Filed: 03/13/22 21:01> Critical Care Time Critical Care Time: Yes Critical care time (excluding procedures): 30-74 minutes (Acute respiratory failure, time includes patient research, BiPAP, multiple comorbidities) <Dr. Bairon Kim DO - Last Filed: 03/13/22 23:52> Critical Care Time Critical Care Time: Yes Critical care time (excluding procedures): 30-74 minutes (Acute respiratory failure, time includes patient research, BiPAP, multiple comorbidities. 37 minutes), Including time spent:, Discussing w/Patient &/or Family/Bioinformatics Research Technician, Discussing w/Consultants, Arranging Admission or Transfer and Performing Direct Patient Care at Bedside Discharge Plan Dx/Rx/DC Orders Clinical Impression: Acute exacerbation of CHF (congestive heart failure), Acute respiratory failure, Bilateral leg edema, History of esophageal cancer Disposition Disposition: [facility] Care [facility] Discharge Date/Time: 03/13/22 21:56
[2022-03-13] MEDS: Furosemide 40 MG/4 ML Vial IV (20:42)
--- NOTE | 2022-03-13 20:44 | PCM.HP.STD ---
HPI - General General Date of Admission: 03/13/22 Date of Service: 03/13/22 Chief Complaint: Dyspnea. HPI Narrative The patient is an 82 y/o M w/ PMHx: Asthma, Chronic anemia/Fe deficiency anemia on IV Fe, HTN, HLD, PAF, Asthma, Diabetes mellitus type II, Esophageal CA s/p surgical intervention/stent placement with ongoing chemotherapy following w/ Dr. Cook, recent 02/12/22 admission for Aspiration PNA, return to [facility] ED on 03/04/22 with discharge on day of current presentation 03/13/22 earlier in the day treated for again recurrent aspiration PNA, hypoxia, atrial fibrillation with RVR and Acute rhinoviral infection was discharged and transition to transitional care unit for ongoing therapies now re-presents this evening from TCU to the [facility] ED on 03/13/22 with increased shortness of breath with hemoglobin noted to be 6 requiring 2 unit PRBC administration with significant dyspnea onset following with concern for overload prompting ED transition for evaluation. In the TCU they did administer lasix in between the PRBC however ~ 1 hour following completion he worsened. He does have BL LE pedal to mid smith pitting edema of note but this has been ongoing. He does report some difficulty laying flat prior to this acute onset over the last week. Work-up in the ED includes T98.1, heart rate 114, BP 126/73, respiratory rate 25, 93% on a nonrebreather at 15 L-->transitioned to BIPAP, CBC with WC 2.9, hemoglobin 9.5, platelet 136 with increased immature granulocytes however ANC 1.5 of note, ABG with pH 7.27, bicarb 28.1, O2 saturation 93%, PCO2 60.8, PCO2 79 on a nonrebreather, BMP with sodium 133, chloride 93, BUN/creatinine 42/0.89, glucose 191, troponin 11, BNP 323.6, chest x-ray with left lung findings improved, pacified right lung, mucous plugging consideration, rapid COVID and influenza antigen negative, EKG ST without acute evidence of ischemia. In the ED patient ministered 40 mg IV Lasix x1. [facility] Medical History Aspiration pneumonia Asthma Chronic anemia Diabetes mellitus, type 2 Esophageal carcinoma HLD (hyperlipidemia) HTN (hypertension) Iron deficiency anemia PAF (paroxysmal atrial fibrillation) Home Medications cholecalciferol (vitamin D3) 50 mcg (2,000 unit) capsule (Vitamin D3) 1,000 unit PO DAILY SUPPLEMENT 11/08/16 [History Last Taken 1 Month Ago ~02/01/22] ofloxacin 0.3 % eye drops 1 drp EACH EYE QHS PRN Eye Irritation 02/12/22 [History Last Taken 03/02/22] acetaminophen 650 mg tablet,extended release 1,300 mg PO Q8H pain 03/04/22 [History Last Taken 03/04/22 07:30] amiodarone 200 mg tablet 200 mg PO BIDCM heart 03/09/22 [History Last Taken 03/13/22] amiodarone 200 mg tablet 200 mg PO DAILY heart 03/09/22 [History Last Taken Unknown] apixaban 2.5 mg tablet (Eliquis) 2.5 mg PO BID blood thinner 03/09/22 [History Last Taken Unknown] budesonide 0.5 mg/2 mL suspension for nebulization 0.5 mg inhalation BID.RT respiratory 03/09/22 [History Last Taken Unknown] furosemide 40 mg tablet 40 mg PO DAILY fluid pill 03/09/22 [History Last Taken Unknown] metoprolol tartrate 100 mg tablet 100 mg PO BID heart 03/09/22 [History Last Taken Unknown] ascorbic acid (vitamin C) 500 mg tablet 500 mg PO BREAKFAST 03/13/22 [History Last Taken Unknown] atorvastatin 20 mg tablet 20 mg PO DINNER 03/13/22 [History Last Taken Unknown] calamine phenolated lotion 1 applic topical BID 03/13/22 [History Last Taken Unknown] food supplemt, lactose-reduced 0.08 gram-1.5 kcal/mL oral liquid (Ensure Plus High Protein) 120 ml PO 4X/DAY 03/13/22 [History Last Taken Unknown] metformin 500 mg tablet 500 mg PO BIDCM 03/13/22 [History Last Taken Unknown] metoclopramide HCl 5 mg tablet See Rx Instructions .Route .COMPLEX 03/13/22 [History Last Taken Unknown] nystatin 100,000 unit/gram topical powder 1 applic topical BID 03/13/22 [History Last Taken Unknown] pioglitazone 15 mg tablet 15 mg PO BIDCM 03/13/22 [History Last Taken Unknown] polysaccharide iron complex 150 mg iron capsule 150 mg PO DAILY 03/13/22 [History Last Taken Unknown] potassium chloride 20 mEq tablet,extended release 20 meq PO DAILY 03/13/22 [History Last Taken Unknown] sennosides 8.6 mg-docusate sodium 50 mg tablet (Senna with Docusate Sodium) 1 tab PO BID 03/13/22 [History Last Taken Unknown] tramadol 50 mg tablet 50 mg PO Q6H PRN Pain 03/13/22 [History Last Taken Unknown] Allergy/AdvReac Type Severity Reaction Status Date / Time albuterol Allergy Other Verified 03/13/22 19:13 amoxicillin Allergy Other Verified 03/13/22 19:13 levofloxacin [From Levaquin] Allergy Other Verified 03/13/22 19:13 moxifloxacin [From Avelox] Allergy Other Verified 03/13/22 19:13 sulfamethoxazole Allergy Rash Verified 03/13/22 19:13 [From Bactrim] trimethoprim [From Bactrim] Allergy Rash Verified 03/13/22 19:13 Family History Father Hypertension Diabetes Heart disease CAD (coronary artery disease) Sister Hypertension Diabetes Mother Hypertension Surgical History H/O sinus surgery History of esophageal surgery Status post myringotomy with tube placement of both ears Social History household members: spouse Smoking Status: Never smoker alcohol intake: current alcohol intake frequency: a few times a month substance use type: does not use ROS ROS Narrative Admission Review of Systems: CONSTITUTIONAL: No weight loss, fever, chills, + weakness or fatigue. HEENT: Eyes: No visual loss, blurred vision, double vision or yellow sclerae. Ears, Nose, Throat: No hearing loss, sneezing, congestion, runny nose or sore throat. SKIN: + Various abrasions, staged ecchymoses. CARDIOVASCULAR: + Edema, orthopnea. No chest pain, chest pressure or chest discomfort, palpitations, syncopal events. RESPIRATORY: + Notable shortness of breath, no marked sputum, wheezing, hemoptysis. GASTROINTESTINAL: No anorexia, nausea, vomiting or diarrhea, abdominal pain, melena, BRBPR. GENITOURINARY: No dysuria, frequency, urgency or retention. NEUROLOGICAL: + Increased confusion, weakness, debility. No headache, dizziness, syncope, paralysis, ataxia, numbness or tingling in the extremities, focal weakness, change in bowel or bladder control, seizure. MUSCULOSKELETAL: + muscle, back pain, joint pain or stiffness. HEMATOLOGIC: + anemia, bleeding or bruising. LYMPHATICS: No enlarged nodes. No history of splenectomy. PSYCHIATRIC: + history of depression or anxiety. ENDOCRINOLOGIC: No reports of sweating, cold or heat intolerance. No polyuria or polydipsia. ALLERGIES: No history of asthma, hives, eczema or rhinitis. Vital Signs Vital Signs Vital Signs: 03/13/22 19:14 03/13/22 19:20 03/13/22 20:10 Temperature 98.1 F Temperature Source Oral Pulse Rate 114 H 118 H Respiratory Rate 25 H 28 H Respiratory Effort Short of Breath Labored Respiratory Depth Shallow Respiratory Pattern Hyperpnea Blood Pressure 126/73 H Blood Pressure Mean 90 Pulse Ox 93 93 Oxygen Delivery Method Non-Rebreather Non-Rebreather Oxygen Flow Rate (L/min) 15 15 Fraction of Inspired Oxygen (FIO2) 75 Weight Weight: 195 lb 12.328 oz Body Mass Index (BMI) 28.9 Physical Exam Narrative Physical Examination: General: Improving on BiPAP, awakens to some discussion, can answer orientation questions and is more alert but extremely fatigued, respiratory distress is improving. Skin: Normal color, normal turgor, no icterus, no cyanosis except for various staged ecchymoses, abrasion. HEENT: AT/NC, EOMI, PERRLA, mildly dry MM, BiPAP in place, no carotid bruits or JVD noted. Lungs: Notably diminished, R>L, respiratory distress is lessening with BiPAP in place, rales bilaterally, more notable left base to mid, no wheezing. Heart: Tachycardic, currently regular rhythm; no gallop, rub audible. Abdomen: Soft, NTTP, ND, distant normal BS, no HSM. Extremities: No cyanosis, no clubbing, pedal to distal smith 1-2+ edema. Neurological: Patient awake, alert, oriented as noted, cognitive function improving with BiPAP, still not however based intact; pupils equally reactive to light and accommodation, cranial nerves grossly normal, moving all 4 extremities, no focal deficits, strength severely globally decreased secondary to acute presentation. Psychiatric: Affect appears fatigued, respiratory distress lessening, no acute evidence of depressive or anxiety feelings. Results Lab / Micro Data Result Diagrams: 03/13/22 19:52 03/13/22 19:52 Labs: Laboratory Results - last 24 hr 03/13/22 19:52: WBC 2.9 L, RBC 3.50 L, Hgb 9.5 L, Hct 29.9 L, MCV 85.4, MCH 27.1, MCHC 31.8 L, RDW Std Deviation 59.2 H, RDW Coeff of Rey 20.0 H, Plt Count 136 L, MPV 10.1, Immature Gran % (Auto) 1.400 H, Neut % (Auto) 50.8, Lymph % (Auto) 35.3, [place] % (Auto) 12.2 H, Eos % (Auto) 0.0, Baso % (Auto) 0.3, Absolute Neuts (auto) 1.5 L, Absolute Lymphs (auto) 1.01, Nucleated RBC % 1.7, Differential Comment SCANNED, Polychromasia 1+, Anisocytosis 2+, Microcytosis 1+, Macrocytosis 1+ 03/13/22 19:52: Sodium 133 L, Potassium 4.2, Chloride 93 L, Carbon Dioxide 30.0, Anion Gap 10, BUN 42 H, Creatinine 0.89, Estim Creat Clear Calc 63.99, Est GFR (MDRD) Af Amer 105, Est GFR (MDRD) Non-Af 87, BUN/Creatinine Ratio 47.2 H, Glucose 191 H, Calcium 8.7, Troponin I High Sens 11 03/13/22 19:52: B-Natriuretic Peptide 323.6 H Micro: Microbiology 03/13/22 19:52 Nasal Secretion SARS-CoV-2 & FLU Antigen (Rapid) - Final ABG Data ABG results: ABG 03/13/22 20:06 Specimen Type ART Sample Site L Radial pH 7.27 L Bicarbonate Actual 28.1 H Total CO2 30 Base Excess 1 O2 Saturation 93 L O2 % 100 ABG pCO2 60.8 H ABG pO2 79 Petros Test Negative O2 Delivery Device NRB Radiology Impression Chest X-Ray 03/13/22 20:13 IMPRESSION: Left lung findings are improved. Opacified right lung. Mucous plug should be considered. Electronically Signed: Toño Catalan MD at 20:30 EST Reading Location ID and State: [facility] / [place] , Service support , Assessment & Plan Assessment/Plan (1) Acute respiratory failure: PLAN: Plan The patient is an 82 y/o M w/ PMHx: Asthma, Chronic anemia/Fe deficiency anemia on IV Fe, HTN, HLD, PAF, Asthma, Diabetes mellitus type II, Esophageal CA s/p surgical intervention/stent placement with ongoing chemotherapy following w/ Dr. Cook, recent 02/12/22 admission for Aspiration PNA, return to [facility] ED on 03/04/22 with discharge on day of current presentation 03/13/22 earlier in the day treated for again recurrent aspiration PNA, hypoxia, atrial fibrillation with RVR and Acute rhinoviral infection was discharged and transition to transitional care unit for ongoing therapies now re-presents this evening from TCU to the [facility] ED on 03/13/22 with increased shortness of breath with hemoglobin noted to be 6 requiring 2 unit PRBC administration with significant dyspnea onset following with concern for overload prompting ED transition for evaluation. #1. Acute Hypoxic Respiratory Failure secondary to Suspected Volume Overload/CHF Exacerbation (Diastolic) s/p 2 u PRBC administration secondary to #2 and possible concurrent mucous plug: Will admit to the ICU, request vest given plugging concerns, maintain on BIPAP, continue IV diuresis, request ICU physician involvement, maintain on oxygen with wean as tolerated to room air, HOB, IS parameters, recent ECHO as noted thus defer repeat with no obvious systolic dysfunction thus presume diastolic component but no mention of function, place snug michael wraps to BL LE, cycle cardiac enzymes, will obtain mag level, recent normal TSH. PT/OT/ST consulted and pending as well as CM. #2. Acute on Chronic anemia/iron deficiency anemia: Patient 03/10/2022 hemoglobin 8.9, recheck 03/13/2022 in TCU noted to be 6.0 with 2 unit PRBC administration with repeat in the ED upon current presentation 9.5, likely volume overload with PRBC administration as etiology for acute hypoxic respiratory failure as noted #1, will continue to cycle H&H's, request guaiac to be cautious given chronic anticoagulation and patient will continue to follow with hematology/oncology with required IV iron and PRBC in the past as well. If guaiac is positive we will hold anticoagulant therapy, transition n.p.o. status and maintained on IV PPI with GI requested evaluation. #3. Recent Aspiration Pneumonia: Recent admission for recurrent aspiration pneumonia, completed abx regimen with recent speech therapy reevaluation with recommendation of regular textures with thin liquids and continued supervision which will be continued once respiratory status improved given #1. #4. Paroxysmal atrial fibrillation: Recent RVR episode during prior admission likely secondary to acute infectious presentation, Echocardiogram with EF 55 to 60% with mild aortic stenosis. Previously had been on sotalol but transition to metoprolol secondary to interactions with his chemotherapy with difficulty with rate control since this transition. We will continue recently initiated oral amiodarone which has been started twice daily for 7 days with then plan transition to once daily dosing as well as metoprolol regimen and low-dose Eliquis twice daily unless as noted guiac positive given Hgb decrease. #5. Esophageal cancer: Following with Dr. Cook, s/p prior port placement, recently transitioned to new chemotherapeutic agent, will repeat magnesium and phosphorus levels and supplement appropriate. #6. Chronic asthma: BIPAP as noted above given acute presentation #1, transition to NC once improving, maintain on ATC budesonide therapy, PRN albuterol, encourage head of bed and I-S. #7. Hypertension: Continue home regimen including metoprolol (recent change from sotalol), losartan with hold parameters, PRN hydralazine. #8. Hyperlipidemia: We will continue patient on statin therapy. #9. Diabetes mellitus type II: Hold oral home regimen, ADA diet once respiratory status improving, accu checks w/ ISS. #10. Severe Protein-Calorie malnutrition: Notable weight loss, muscle loss following recent esophageal CA diagnosis, nutrition following during recent admission, will continue. #11. DVT prophylaxis: SCDs, eliquis. #12. CODE status: Patient HCPOA and living will are not in place but recently he had discussions about transition of status. He had prior been Full Code. Discussed again CODE status including difference between FULL code, DNR-CCA and DNR-CC status. Following discussions about the differences in these status, requested DNR-CCA, no intubation status. This was discussed in front of his family. Advanced Care Planning Face to Face Time: 16 minutes. Charges/Coding Visit Charges Inpatient E&M: 11504 Init Hosp L3 Procedures Hospitalists Procedures: 17395 Advncd Care Plan 30 Min
--- NOTE | 2022-03-13 20:51 | NURSING ---
Per Jamal Heath, pt does not meet sepsis protocol
--- NOTE | 2022-03-13 21:30 | NURSING ---
This RN Called report to [employer]NER
[2022-03-13 22:25] LABS: Magnesium 1.1 mg/dL (1.6-2.6)
[2022-03-13] MEDS: Ondansetron 4 MG/2 ML Vial IV (23:07)
[2022-03-13] MEDS: 0.9% Saline Lock 10 ML Syringe IV (23:07)
[2022-03-13] MEDS: Insulin Lispro 100 UNIT/ML INSULN.PEN SC (23:08)
[2022-03-13] MEDS: MELATONIN 3 MG TABLET PO (23:08)
[2022-03-13] MEDS: traMADol 50 MG Tablet PO (23:08)
[2022-03-13] MEDS: Acetaminophen 325 MG Tablet 650 MG PO (23:08)
[2022-03-13] MEDS: Metoprolol Tartrate 100 MG Tablet PO (23:09)
[2022-03-13] MEDS: Nystatin Powder 15gm Bottle 1 APPLIC TOPICAL (23:09)
[2022-03-13] MEDS: Menthol/Lanolin/Calamine/Znox 113 GM Tube 1 APPLIC TOPICAL (23:09)
[2022-03-13] MEDS: Senna/Docusate Sodium 1 Tablet PO (23:11)
[2022-03-13] MEDS: APIXABAN 2.5 MG TABLET (WCH) PO (23:11)
[2022-03-13 23:30] LABS: Bedside Glucose 193 mg/dL (74-106)
[2022-03-13 23:39] LABS: Troponin-I HS 17 pg/mL (3.0-78.0)
[2022-03-13 23:56] LABS: Hematocrit 28.1 % (40-54); Hemoglobin 8.6 g/dL (13.0-16.5)
[2022-03-14] VITALS: BP 69/29; PULSE 82; RESP 22; O2SAT 81
[2022-03-14 00:01] VITALS: BP 78/49
[2022-03-14 00:08] VITALS: BP 76/59; PULSE 83; RESP 25; TEMP 36.5; O2SAT 79
[2022-03-14] MEDS: Ceftriaxone 1 GM/50 ML BAG IV (00:19)
[2022-03-14 00:31] VITALS: BP 91/46; PULSE 99; RESP 23; TEMP 37.4; O2SAT 64
--- NOTE | 2022-03-14 00:34 | PN.HOSP_ITS ---
Hospitalist Note Following patient transition to the ICU he had bout of emesis upon bed transition which was dark black appearing, coffee-ground with BiPAP immediately removed. Rapid response called secondary to following this suspected likely aspiration component with bradycardia however this improved without significant intervention. Upon hospitalist evaluation patient mildly hypertensive, decision for NG tube placement with immediately neuro 800 cc output of coffee-ground emesis and discussion with respiratory therapy with placement back on BiPAP. Initiated IV PPI and given anticoagulant history requested and discussed with pharmacy [facility] which was administered. Additionally discussed PRBC with blood bank and unfortunately was no blood remaining from earlier in the day but 2 units were immediately obtained and initiated. Discussed current status with patient and the fact that he was very ill and immediately contacted also his family who eventually presented but through discussions patient did report that if this was ongoing and he continued to decline he would prefer comfort measures. Family presented and given his current status with adamant continuation of DNR CCA no intubation status and continued decline despite interventions family including his children and his decided to transition to DNRCC. Hospice orders were initiated and patient was administered medications for his dyspnea and agitation. Family eventually given his agitation and desire to have the BiPAP off were amenable to removal of this and patient was placed on nasal cannula. Initially had discussed case also with the tub mender and consultation with GI however given transition and worsening status these were discontinued. Advanced Care Planning Face to Face Time: 30 minutes.
[2022-03-14] MEDS: Morphine 4 MG/ML Syringe IV (00:43)
[2022-03-14] MEDS: 0.9% Saline Lock 10 ML Syringe IV ×2 (00:45→00:50)
[2022-03-14] MEDS: Haloperidol Lactate 5 MG/ML Vial SC (00:48)
--- NOTE | 2022-03-14 01:21 | EXP.PCM_ITS ---
Preliminary Cause of Preliminary Cause of Preliminary Cause of : #1.? Acute Hypoxic Respiratory Failure secondary to Suspected Volume Overload/CHF Exacerbation (Diastolic) s/p 2 u PRBC administration secondary to #2 and possible concurrent mucous plug, complicated by recurrent aspiration of GI bleed contents #2.? Acute on Chronic anemia/iron deficiency anemia secondary to GI bleed, possibly associated with his complex Esophageal cancer but unable to delineate as no formal endoscopy performed with associated Hemorrhagic Shock in the setting of chronic anticoagulation Date of Admission: 03/13/22 Date of : 03/14/22 (Time of : 01:18) Principle Diagnosis #1.? Acute Hypoxic Respiratory Failure secondary to Suspected Volume Overload/CHF Exacerbation (Diastolic) s/p 2 u PRBC administration secondary to #2 and possible concurrent mucous plug, complicated by recurrent aspiration of GI bleed contents #2.? Acute on Chronic anemia/iron deficiency anemia secondary to GI bleed, possibly associated with his complex Esophageal cancer but unable to delineate as no formal endoscopy performed with associated Hemorrhagic Shock in the setting of chronic anticoagulation Problem List: Additional diagnoses: #3.? Recent Aspiration Pneumonia w/ recurrent aspiration (GI bleed contents) #4.? Paroxysmal atrial fibrillation #5.? Esophageal cancer #6.? Chronic asthma #7.? Hypertension #8.? Hyperlipidemia #9.? Diabetes mellitus type II #10.? Severe Protein-Calorie malnutrition Hospital Course The patient is an 82 y/o M w/ PMHx: Asthma, Chronic anemia/Fe deficiency anemia on IV Fe, HTN, HLD, PAF, Asthma, Diabetes mellitus type II, Esophageal CA s/p surgical intervention/stent placement with ongoing chemotherapy following w/ Dr. Cook, recent 02/12/22 admission for Aspiration PNA, returned to [facility] ED on 03/04/22 with discharge on day of current presentation 03/13/22 earlier in the day treated for again recurrent aspiration PNA, hypoxia, atrial fibrillation with RVR and Acute rhinoviral infection was discharged and transitioned to transitional care unit for ongoing therapies re-presented from TCU to the [facility] ED on 03/13/22 with increased shortness of breath with hemoglobin noted to be 6 requiring 2 unit PRBC administration with significant dyspnea onset following with concern for overload despite lasix administration between units prompting ED transition for evaluation. Work-up in the ED includes T98.1, heart rate 114, BP 126/73, respiratory rate 25, 93% on a nonrebreather at 15 L-->transitioned to BIPAP, CBC with WC 2.9, hemoglobin 9.5, platelet 136 with increased immature granulocytes however ANC 1.5 of note, ABG with pH 7.27, bicarb 28.1, O2 saturation 93%, PCO2 60.8, PCO2 79 on a nonrebreather, BMP with sodium 133, chloride 93, BUN/creatinine 42/0.89, glucose 191, troponin 11, BNP 323.6, chest x-ray with left lung findings improved, pacified right lung, mucous plugging consideration, rapid COVID and influenza antigen negative, EKG ST without acute evidence of ischemia. In the ED patient ministered 40 mg IV Lasix x1. Following, patient was admitted to the ICU, maintained on BIPAP, continued IV diuresis, requested ICU physician involvement. Given acute on Chronic anemia/iron deficiency anemia of unclear etiology guiac requested. Upon transition to the ICU with bed transfer, he had a bout of emesis which was dark black appearing, coffee-ground with BiPAP immediately removed.? Rapid response called secondary to following this suspected likely aspiration component with bradycardia however this improved without significant intervention.? Upon hospitalist evaluation patient mildly hypertensive, decision for NG tube placement with immediately neuro 800 cc output of coffee-ground emesis and discussion with respiratory therapy with placement back on BiPAP.?BP with acute GI bleed began to decrease, IVFs administered with then initiation of PRBC. Initiated IV PPI and given anticoagulant history requested and discussed with pharmacy [facility] which was administered. Discussed current status with patient and the fact that he was very ill and immediately contacted also his family who eventually presented but through discussions patient did report that if this was ongoing and he continued to decline he would prefer comfort measures.? Family presented and given his current status with adamant continuation of DNR CCA no intubation status and continued decline despite interventions family including his children and his decided to transition to DNRCC.? Hospice orders were initiated and patient was administered medications for his dyspnea and agitation.? Family eventually given his agitation and desire to have the BiPAP off were amenable to removal of this and patient was placed on nasal cannula.? Initially had discussed case also with the city bus driver and consultation with GI however given transition and worsening status these were discontinued.?Patient following removal of BIPAP and transition to NC with comfort measures instituted, passed. Time of : 01:18 Date of : 03/14/22 Visit Charges Inpatient E&M: 11769 Disch Hosp
--- NOTE | 2022-03-14 01:22 | NURSING ---
Around 2315, HS meds given to pt. Took off BIPAP and placed on nonrebreather for a short time to allow for medication administration. Pt brief was noted to be wet, so this RN and GSE MECHANIC gave pt a bath and were changing his linens around 2330. Pt was on his right side while changing linens and his eyes rolled back. BIPAP put back on instead of NRB. HR slowed from 110s to approximately 50-60. Pt was noted to be apneic and unresponsive. A moderate to large amount of coffee grounds emesis was in bipap mask. Pt suctioned, ENTRY LEVEL PROJECT COORDINATOR called. 2330: RT in room bagging pt. 233: Dr. Phillips in room 2335: NG placed per Dr. Phillips's order, attached to suction - approx 1000 cc of coffee grounds emesis came out immediately. Pt woke up a bit and started pulling at things again. Wright also placed per Dr. Phillips's order. Also orders for kcentra, 2 units PRBCs, a 250 cc bolus d/t hypotension, antibiotics were given by Dr. Phillips. Family called per nursing supervisor color making and MD, arrived at bedside and made aware of situation by Dr. Phillips and RNs.
--- NOTE | 2022-03-14 01:47 | NUR.TO.PHY ---
Blood and other IV medications paused around 0100 when pt made comfort measures only.
== END 2022-03-14 01:18 | DRG 291 ==
LOC: ED 21:01 → ICU 21:10
PROVIDERS: Nurse Practitioner; Admitting Provider Family Medicine; Emergency Provider Emergency Medicine; Visit Provider Family Medicine
DX: I11.0 Hypertensive heart disease with heart failure (principal); J96.01 Acute respiratory failure with hypoxia; J69.0 Pneumonitis due to inhalation of food and vomit; E43 Unspecified severe protein-calorie malnutrition; I50.31 Acute diastolic (congestive) heart failure; K92.2 Gastrointestinal hemorrhage, unspecified; C15.9 Malignant neoplasm of esophagus, unspecified; D50.0 Iron deficiency anemia secondary to blood loss (chronic); Z79.01 Long term (current) use of anticoagulants; I48.0 Paroxysmal atrial fibrillation; E11.9 Type 2 diabetes mellitus without complications; E87.70 Fluid overload, unspecified; D63.0 Anemia in neoplastic disease; E78.5 Hyperlipidemia, unspecified; J45.909 Unspecified asthma, uncomplicated; I35.0 Nonrheumatic aortic (valve) stenosis; Z92.21 Personal history of antineoplastic chemotherapy; Z79.899 Other long term (current) drug therapy; Z68.25 Body mass index [BMI] 25.0-25.9, adult; Z79.84 Long term (current) use of oral hypoglycemic drugs
CPT/HCPCS: 36430; 36591; 36600; 71045; 74018; 80048; 82803; 82962; 83735; 83880; 84484; 85014; 85018; 85025; 86850; 86900; 86901; 86920; 86922; 87428; 93005; 94002; 94799; 99251; 99284; J7168; P9016; A4216; G0463; J1940; J2405